=== PATIENT | male | born 1990 | race Hispanic/Latino ===

== ENCOUNTER 2018-09-09 17:58 | Emergency (ER) | payer SELFPAY ==
--- NOTE | 2018-09-09 19:53 | ER ---
Nurse's Notes [facility] Name: Vish Valdivia Jr Age: 28 yrs Sex: Male : 1990 Arrival Date: 09/09/2018 Time: 18:03 Bed 12 Private MD: None, None Diagnosis: Rash and other nonspecific skin eruption Presentation: 09/09 18:21 Presenting complaint: Abscess on abdomen x 2 days. Transition of care: patient was not hb received from another setting of care. Onset of symptoms was September 08, 2018. Risk Assessment: Do you want to hurt yourself or someone else? Patient reports no desire to harm self or others. Initial Sepsis Screen: Does the patient meet any 2 criteria? No. Patient's initial sepsis screen is negative. Does the patient have a suspected source of infection? No. Patient's initial sepsis screen is negative. Care prior to arrival: None. 18:21 Method Of Arrival: Ambulatory hb 18:21 Acuity: HIPOL[place] 4 hb Historical: - Allergies: 18:22 No Known Allergies; hb - Home Meds: 18:22 None [Active]; hb - PMHx: 18:22 None; hb - Immunization history:: Adult Immunizations up to date. - Social history:: Smoking status: Patient uses tobacco products, smokes one-half pack cigarettes per day. - Ebola Screening: : No symptoms or risks identified at this time. Screenin:25 Abuse screen: Denies threats or abuse. Denies injuries from another. Nutritional aj1 screening: No deficits noted. Tuberculosis screening: No symptoms or risk factors identified. Fall Risk None identified. Assessment: 20:25 General: Appears in no apparent distress. comfortable, Behavior is calm, cooperative, aj1 appropriate for age. Pain: Complains of pain in abdomen. Neuro: Level of Consciousness is awake, alert, obeys commands, Oriented to person, place, time, situation. Cardiovascular: Patient's skin is warm and dry. Respiratory: Airway is patent Respiratory effort is even, unlabored, Respiratory pattern is regular, symmetrical. GI: No signs and/or symptoms were reported involving the gastrointestinal system. : No signs and/or symptoms were reported regarding the genitourinary system. EENT: No signs and/or symptoms were reported regarding the EENT system. Derm: Rash noted that is on abdomen. Musculoskeletal: No signs and/or symptoms reported regarding the musculoskeletal system. Circulation, motion, and sensation intact. Vital Signs: 18:22 BP 150 / 98; Pulse 102; Resp 20; Temp 98.7; Pulse Ox 100% on R/A; Weight 99.79 kg; hb Height 5 ft. 8 in. (172.72 cm); Pain 9/10; 18:22 Body Mass Index 33.45 (99.79 kg, 172.72 cm) hb ED Course: 18:03 Patient arrived in ED. mr 18:03 None, None is Private Physician. mr 18:11 Patient's name was called from ER lobby. No response. hb 18:22 Triage completed. hb 18:22 Arm band placed on. hb 18:53 Amy Marin, RN is Primary Nurse. aj1 19:31 Zoltan Beach MD is Attending Physician. ps1 19:52 Dallas Savage MD is Referral Physician. ps1 20:25 Patient has correct armband on for positive identification. Bed in low position. Call aj1 light in reach. 20:25 No provider procedures requiring assistance completed. Patient did not have IV access aj1 during this emergency room visit. Administered Medications: No medications were administered Outcome: 19:53 Discharge ordered by . ps1 20:25 Discharged to home ambulatory. aj1 20:25 Condition: good 20:25 Discharge instructions given to patient, Instructed on discharge instructions, follow up and referral plans. medication usage, Demonstrated understanding of instructions, follow-up care, medications, Prescriptions given X 2. 20:27 Patient left the ED. aj1 Signatures: Amy Marin RN RN [facility] Lisbeth Whitt Karyna Escamilla RN RN Zoltan Beach MD MD ps1
--- NOTE | 2018-09-09 19:54 | EDPHYS ---
Physician Documentation [facility] Name: Vish Valdivia Jr Age: 28 yrs Sex: Male : 1990 Arrival Date: 09/09/2018 Time: 18:03 Bed 12 Private MD: None, None ED Physician Zoltan Beach HPI: 09/09 19:41 This 28 yrs old Male presents to ER via Ambulatory with complaints of skin ps1 rash. 19:41 Patient has had a rash for several months. 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 ps1 States that he has applied topical cream previously. Has not seen dermatology. Concerned today because over the last two days he had a small excoriation with possible abscess that formed on the abdominal wall. The appearance is consistent with the rest of the rash on his left arm and left leg. He additionally has fungal infection of nails bilaterally. No fever. No necrosis. . Historical: - Allergies: 18:22 No Known Allergies; hb - Home Meds: 18:22 None [Active]; hb - PMHx: 18:22 None; hb - Immunization history:: Adult Immunizations up to date. - Social history:: Smoking status: Patient uses tobacco products, smokes one-half pack cigarettes per day. - Ebola Screening: : No symptoms or risks identified at this time. ROS: 19:41 Constitutional: Negative for fever, chills, and weight loss, Eyes: Negative for injury, ps1 pain, redness, and discharge, Cardiovascular: Negative for chest pain, palpitations, and edema, Respiratory: Negative for shortness of breath, cough, wheezing, and pleuritic chest pain, Abdomen/GI: Negative for abdominal pain, nausea, vomiting, diarrhea, and constipation, Back: Negative for injury and pain, MS/Extremity: Negative for injury and deformity, Neuro: Negative for headache, weakness, numbness, tingling, and seizure. 19:41 Skin: Positive for rash. Exam: 19:41 Constitutional: This is a well developed, well nourished patient who is awake, alert, ps1 and in no acute distress. Head/Face: Normocephalic, atraumatic. Eyes: Pupils equal round and reactive to light, extra-ocular motions intact. Lids and lashes normal. Conjunctiva and sclera are non-icteric and not injected. Chest/axilla: Normal chest wall appearance and motion. Nontender with no deformity. No lesions are appreciated. Cardiovascular: Regular rate and rhythm. No gallops, murmurs, or rubs. Normal PMI, no JVD. No pulse deficits. Respiratory: Lungs have equal breath sounds bilaterally, clear to auscultation and percussion. No rales, rhonchi or wheezes noted. No increased work of breathing, no retractions or nasal flaring. Abdomen/GI: Soft, non-tender, with normal bowel sounds. No distension or tympany. No guarding or rebound. No evidence of tenderness throughout. 19:41 Skin: contact dermatitis, on the abdomen, left arm and left leg, has onchyomycosis on bilateral nails. . Vital Signs: 18:22 BP 150 / 98; Pulse 102; Resp 20; Temp 98.7; Pulse Ox 100% on R/A; Weight 99.79 kg; hb Height 5 ft. 8 in. (172.72 cm); Pain 9/10; 18:22 Body Mass Index 33.45 (99.79 kg, 172.72 cm) hb MDM: 19:41 Data reviewed: vital signs, nurses notes, and as a result, I will discharge patient. 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 Does not appear to have an abscess. Will discharge with medrol, clindamycin and refer to dermatology. Needs liver function panel prior to starting antifungals as they will need to be oral administration. . 19:53 Patient medically screened. ps1 Administered Medications: No medications were administered Disposition: 09/09/18 19:53 Discharged to Home. Impression: Rash and other nonspecific skin eruption. - Condition is Stable. - Discharge Instructions: Rash, [id number]. - Prescriptions for Clindamycin HCl 300 mg Oral Capsule - take 1 capsule by ORAL route every 6 hours for 10 days; 40 capsule. Medrol (Liborio) 4 mg Oral Tablets, Dose Pack - take 1 tablet by ORAL route as directed - follow package instructions; 1 packet. - Medication Reconciliation Form, Thank You Letter, Antibiotic Education, Prescription Opioid Use form. - Follow up: Dallas Savage MD; When: 1 week; Reason: Further diagnostic work-up, Recheck today's complaints, Continuance of care. - Problem is an ongoing problem. - Symptoms are unchanged. Signatures: Amy Marin RN RN aj1 Karyna Escamilla RN RN hb Zoltan Beach MD MD ps1 Corrections: (The following items were deleted from the chart) 20:27 19:53 09/09/2018 19:53 Discharged to Home. Impression: Rash and other nonspecific skin aj1 eruption. Condition is Stable. Forms are Medication Reconciliation Form, Thank You Letter, Antibiotic Education, Prescription Opioid Use. Follow up: Dallas Savage; When: 1 week; Reason: Further diagnostic work-up, Recheck today's complaints, Continuance of care. Problem is an ongoing problem. Symptoms are unchanged. ps1
== END 2018-09-09 20:27 | disposition home or self-care (01) ==
LOC: ER 17:58
DX: R21 Rash and other nonspecific skin eruption (principal); F17.210 Nicotine dependence, cigarettes, uncomplicated
CPT/HCPCS: 99282

== ENCOUNTER 2022-11-15 21:24 | Emergency (ER) | payer OTHER ==
--- OUTSIDE RECORDS SUMMARY | 2022-11-15 21:28 | XMS REPORT | Continuity of Care Document ---
:1990 Author Organization [facility] t Address [address] [place] [address] [place] [id number] Care Team Providers Name Role Phone PCP, PATIENT DOES NOT HAVE A Primary Care Physician UnavailMURRAY Gonzales Attending Clinician Unavailable Murray Hooper Attending Clinician Doctor Unassigned, [place] Attending Clinician Unavailable Shade Reed MD Attending Clinician SHADE REED Attending Clinician Unavailable SRIDHAR MARROQUIN Attending Clinician Unavailable MURRAY URIOSTEGUI Admitting Clinician Unavailable Payers Payer Name Policy Type Policy Number Effective Date Expiration Date [place] carrera [employer] [id number] 2022 OUT OF NETWORK 00:00:00 Problems Condition Condition Condition Status Onset Resolution Last Treating Co mments Source Name Details Category Date Date Treatment Clinician Date No known No known Disease Unive rs active active ity of problems problems [facility] Allergies, Adverse Reactions, Alerts Allergy Allergy Status Severity Reaction(s) Onset Inactive Treating Comm ents Source Name Type Date Date Clinician NO KNOWN Drug Active Univers ALLERGIE Class ity of [facility] Social History Social Habit Start Date Stop Date Quantity Comments Source Gender identity [facility]it y [facility] to 2022-04-29 2022-05-09 Not sure [facility] SARS-CoV-2 (event) 00:00:00 16:06:00 Medica l Branch Sex Assigned At [birth year] Uni versity [facility] 00:00:00 00:00:00 Medical Branch Smoking Status Start Date Stop Date Source Tobacco smoking consumption [facility] Medical unknown Branch Medications Ordered Filled Start Stop Current Ordering Indication Dosage Frequency Signature Comments Components Source Medication Medication Date Date Medication? Clinician (SIG) Name Name ondansetron No 4mg 4 mg, Univ ers (ZOFRAN-ODT 05-10 Oral, ity of ) 01:15: 00:44 ONCE, 1 [place] disintegrat 00 :00 dose, On Medi garrett ing tablet Sun05/09/22 Bra nch 4 mg at 2014, DAYLIN NaCl 0.9% 2022- No 1000mL at 999 Uni vers (NS) bolus 05-10 mL/hr, ity of infusion 00:45: 01:53 1,000 mL, [place] as 1,000 mL 00 :00 IV Medical Infusion, Branch ONCE, 1 dose, On Sun05/09/22 at 1945, DAY[place] dicyclomine No 20mg 20 mg, Uni vers (BENTYL) 05-10 Oral, ity of tablet 20 00:30: 00:44 [place]CE, [place] mg 00 :00 dose, On Medical Sun05/09/22 Branch at 1930, [place] iopamidol 2022- No [id number] 75mL 75 mL, Univers (ISOVUE 05-09 Intravenou ity o f 370-500 mL) 22:52: 22:52 s, ONCE, 1 [place] injection 00 :00 dose, On Medica l 75 mL e 05/09/22 Branch at 1815, Routine proMETHazin No 12.5mg 12.5 mg, Univers e 05-09 IV ity of (PHENERGAN) 22:30: 22:35 Piggyback, [place] 12.5 mg in 00 :00 ONCE, 1 Medica l NaCl 0.9% dose, On Branch (NS) 50 mL e 05/09/22 IV at 1730, piggyback DAYLIN NaCl 0.9% 2022- No 1000mL at 999 Uni vers (NS) bolus 05-09-05 mL/hr, ity of infusion 22:15: 00:03 1,000 mL, [place] as 1,000 mL 00 :00 IV Medical Infusion, Branch ONCE, 1 dose, On Sun05/09/22 at 1715, DAY[place] ketorolac 2022-2022- No 30mg 30 mg, Unive rs (TORADOL) 05-09 Slow IV ity of injection 21:30: 21:44 Push, [place] 30 mg 00 :00 ONCE, 1 Medical dose, On Branch Sun05/09/22 at 1630, Routine ondansetron 2022- No 4mg 4 mg, Slow Univers (ZOFRAN 05-09- IV Push, ity of (PF)) 21:30: 21:24 ONCE, 1 [place] injection 4 00 :00 dose, On Medi garrett mg Sun05/09/22 Branch at 1630, [place] dicyclomine 0 Yes [id number] 20mg Take 1 Univers 20 mg 4-04 tablet by ity of tablet 00:00: mouth 4 [place] 00 (four) Medical times Branch daily as needed for Abdominal pain. ondansetron 2022-0 Yes [id number] 4mg Take 1 Univers 4 mg 4-04 tablet by ity of disintegrat 00:00: mouth [place] ing tablet 00 every 8 Medica l (eight) Branch hours as needed for Nausea and Vomiting (N/V). dicyclomine 2022-0 Yes [id number] 20mg Take 1 Univers 20 mg 4-04 tablet by ity of tablet 00:00: mouth 4 [place] 00 (four) Medical times Branch daily as needed for Abdominal pain. ondansetron 2022-0 Yes [id number] 4mg Take 1 Univers 4 mg 4-04 tablet by ity of disintegrat 00:00: mouth [place] ing tablet 00 every 8 Medica l (eight) Branch hours as needed for Nausea and Vomiting (N/V). doxycycline 2020- No 100mg 100 mg, U nivers hyclate 10-30 09-25 Oral, ity of (Vibramycin 06:15: 05:14 [place] capsule 00 :00 dose, On Medica l 100 mg Sat Branch 10/30/20 at 0115, DAYLIN
Re ason for Anti-Infec tive: Documented Infection< br>Documen kevin Infection Site: Skin / Soft Tissue
Duration of Therapy: Other (see Comments) HYDROcodone 2020- No 1{tbl} 1 tablet, Univers -acetaminop 10-30 Oral, ity of hen (NORCO) 06:00: 05:14 [place]CE[place] 1 [place] 10-325 mg 00 :00 dose, On Medica l tablet 1 Sat Branch tablet 10/30/20 at 0100, Routine iohexol 2020- No [id number] 120mL 120 mL, Univers (OMNIPAQUE 10-30 [id number] Intravenou ity of 350 04:15: 04:06 s, ONCE, 1 [place] BULK-100 00 :00 dose, On Medical mL) Fri Branch injection 10/29/20 at 120 mL 2315, Routine ketorolac 2020- No 30mg 30 mg, Unive rs (TORADOL) 10-30 Slow IV ity of injection 03:30: 02:32 Push, [place] 30 mg 00 :00 ONCE, 1 Medical dose, On Branch 10/29/20 at 2230, Routine
membership correspondent approving Restricted medication : SHADE REED traMADoL Yes [id number] 50mg Take 1 Univers (ULTRAM) 50 9-24 tablet by ity of mg tablet 00:00: mouth [place] 00 every 6 Medical (six) Branch hours as needed for Pain (scale 7-10). Indication s: acute pain doxycycline Yes [id number] 100mg Take 1 Univers hyclate 100 9-24 capsule by it y of mg capsule 00:00: mouth [place] 00 (two) Medical times Branch daily. traMADoL Yes [id number] 50mg Take 1 Univers (ULTRAM) 50 9-24 tablet by ity of mg tablet 00:00: mouth [place] 00 every 6 Medical (six) Branch hours as needed for Pain (scale 7-10). Indication s: acute pain doxycycline Yes [id number] 100mg Take 1 Univers hyclate 100 9-24 capsule by it y of mg capsule 00:00: mouth [place] 00 (two) Medical times Branch daily. traMADoL Yes [id number] 50mg Take 1 Univers (ULTRAM) 50 9-24 tablet by ity of mg tablet 00:00: mouth [place] 00 every 6 Medical (six) Branch hours as needed for Pain (scale 7-10). Indication s: acute pain doxycycline Yes [id number] 100mg Take 1 Univers hyclate 100 9-24 capsule by it y of mg capsule 00:00: mouth [place] 00 (two) Medical times Branch daily. traMADoL Yes [id number] 50mg Take 1 Univers (ULTRAM) 50 9-24 tablet by ity of mg tablet 00:00: mouth [place] 00 every 6 Medical (six) Branch hours as needed for Pain (scale 7-10). Indication s: acute pain doxycycline Yes [id number] 100mg Take 1 Univers hyclate 100 9-24 capsule by it y of mg capsule 00:00: mouth [place] 00 (two) Medical times Branch daily. Vital Signs Vital Name Observation Time Observation Value Comments Source Oxygen saturation in 2022-05-10 01:50:00 100 /min [facility] Arterial blood by [facility] Pulse oximetry Branch Heart rate 2022-05-10 01:50:00 78 /min [facility] Respiratory rate 2022-05-10 01:50:00 15 /min [facility] Systolic blood 2022-05-10 01:00:00 132 mm[facility]Hg[facility] Diastolic blood 2022-05-10 01:00:00 64 mm[Hg] [facility] Body temperature 2022-05-09 21:26:00 35.94 Marichuy [facility] Body height 2022-05-09 21:05:00 172.7 cm [facility] Body weight 2022-05-09 21:05:00 106.595 kg [facility] BMI 2022-05-09 21:05:00 35.73 kg/m2 [facility] Oxygen saturation in 2020-10-30 05:24:00 100 /min University of Arterial blood by [facility] Pulse oximetry Branch Systolic blood 2020-10-30 05:24:00 130 mm[Hg] Univer sity of pressure [facility] Diastolic blood 2020-10-30 05:24:00 81 mm[Hg] Tracee rsity of pressure [facility] Heart rate 2020-10-30 05:24:00 67 /min [facility] Respiratory rate 2020-10-30 05:24:00 16 /min [facility] Body temperature 2020-10-30 01:57:26 36.28 Marichuy [facility] Body height 2020-10-30 01:55:00 170.2 cm [facility] Body weight 2020-10-30 01:55:00 108.863 kg [facility] BMI 2020-10-30 01:55:00 37.59 kg/m2 [facility] Procedures Procedure Date / Time Performing Clinician Source Performed CONSENT/REFUSAL FOR 2022-10-17 01:16:23 Doctor [facility]igned, [facility] CT ABDOMEN PELVIS W 2022-05-09 23:02:00 Murray Uriostegui [facility] CONTRAST [facility] URINALYSIS 2022-05-09 22:42:00 Murray Uriostegui [facility] URINE DRUG (IMMUNOASSAY) 2022-05-09 22:42:00 [facility] Medical Bra nch SCREEN W/O REFLEX LIPASE 2022-05-09 21:21:00 Murray Uriostegui [facility] TROPONIN I 2022-05-09 21:21:00 Murray Uriostegui [facility] COMP. METABOLIC PANEL 2022-05-09 21:21:00 [facility] ([id number]) [facility] CBC WITH DIFF 2022-05-09 21:21:00 Murray Uriostegui [facility] NOTICE OF PRIVACY 2022-05-09 21:02:32 Doctor Unassigned, No [facility] Name Medical Branch CONSENT/REFUSAL FOR 2022-05-09 20:59:14 Doctor Unassigned, [facility] Name [facility] CT ABDOMEN PELVIS W 2020-10-30 04:09:51 Shade Reed [facility] CONTRAST [facility] US SCROTUM AND CONTENTS 2020-10-30 03:24:00 Shade [facility]. METABOLIC PANEL 2020-10-30 02:31:00 Shade Reed [facility] ([id number]) [facility] CBC WITH DIFF 2020-10-30 02:31:00 Shade Reed [facility] URINALYSIS 2020-10-30 02:31:00 Shade Reed [facility] CONSENT/REFUSAL FOR 2020-10-30 01:46:01 Doctor Unassigned, No [facility] Name [facility] Encounters Start End Encounter Admission Attending Care Care Encounter Source Date/Time Date/Time Type Type Clinicians Facility Department ID 2022-10-16 2022-10-16 Emergency X [facility] ERT [id number] Univers 20:34[facility] 2022-10-16 2022-10-16 Emergency [facility] [id number] Univers 20:34:00 20:35:00 [place] 350.1.13.10 i ty of [place] 4.2.7.[address] [place] [id number] 2022-05-09 2022-05-09 Emergency X URIOSTEGUI, [facility] ERT [id number] Univers 16:12:00 20:56:00 [facility] 2022-05-09 2022-05-09 Emergency [facility], [facility] [id number] Univers 16:12:00 20:56:00 Murray WALTON 350.1.13.10 i ty of [place] 4.2.7.2.6 [facility] [id number] [address] 2022-05-09 2022-05-09 Orders Doctor GUTIERREZ [id number] Univers 00:00:00 00:00:00 Only Unassigned, DEUCE 350.1.13.10 ity of [place] [facility] 4.2.7.2.686 [place] [id number] [facility] 009 Branch 2020-10-29 2020-10-30 Emergency [facility] [id number] Univers 20:48:00 00:26:00 Shade Bernstein 350.1.13.10 ity of [place] 4.2.7.2.686 [facility] [id number] [facility] 084 Branch 2020-10-29 2020-10-29 Emergency [facility] ERT [id number] Univers 20:48:00 20:48:00 [facility] 2019-05-22 2019-05-22 Emergency E AZNAUROVA-A BL [facility]BL [id number] BL 18:33:00 20:18:00 SRIDHAR TRAN Results Test Description Test Time Test Comments Results Result Comments Source TROPONIN I 2022-05-09 22:15:45 Test Item Value Reference Range Interpretation Comme nts TROPONIN I (test code = 1064595883) 0.001 ng/mL <=0.034 RASHAUN (test code = RASHAUN) Reference (Normal) Range (defined by the 99th percentile reference limit): <= 0.034 ng/mL Note: Cardiac troponin begins to rise 3-4 hours after the onset of ischemia. Repeat in 4-6 hours if the sample was drawn within 3-4 hours of the onset of the symptom and found normal. Diagnosis of myocardial injury is made with acute changes in cTn concentrations with at least one serial sample above the 99th percentile upper reference limit (URL), taken together with the patient's clinical presentation. Biotin has been reported to cause a negative bias, interpret results relative to patient's use of biotin. Lab Interpretation (test code = Normal 52200-9) [facility]OLIC [facility] ([id number])2022-05-09 21:58:56 Test Item Value Reference Range Interpretation Comments NA (test code = 138 mmol/L 135-145 7605187754) K (test code = 4.3 mmol/L 3.5-5.0 6618825523) CL (test code = 103 mmol/L 98-108 9596614499) CO2 TOTAL (test code = 18 mmol/L 23-31 L 1641556555) AGAP (test code = 17 2-16 H 5733722585) BUN (test code = 15 mg/dL 7-23 5308494434) GLUCOSE (test code = 136 mg/dL 70-110 H 6115447981) CREATININE (test code = 0.83 mg/dL 0.60-1.25 0993450348) TOTAL BILI (test code = 0.8 mg/dL 0.1-1.4 6387894558) CALCIUM (test code = 10.7 mg/dL 8.6-10.6 H 4063589312) T PROTEIN (test code = 9.2 g/dL 6.3-8.2 H 9721150183) ALBUMIN (test code = 5.5 g/dL 3.5-5.0 H 2500829494) ALK PHOS (test code = 83 U/L 34-122 1231055027) ALTv (test code = 27 U/L 5-50 2-6) AST(SGOT) (test code = 28 U/L 13-40 0764891675) eGFR (test code = 107.4 mL/min/1.73m2 6548339113) RASHAUN (test code = RASHAUN) Association of Glomerular Filtration Rate (GFR) and Staging of Kidney Disease* + --+ --+ ------+| GFR (mL/min/1.73 m2) ?| With Kidney Damage ?| ?Without Kidney Damage+ --------+ --------+ +| ?>90 ?| ?Stage one ?| ? Normal ?+ ---+ ---+ -------+| ?60-89 ?| ?Stage two ?| ? Decreased GFR ? + --+ --+ ------+| ?30-59 ?| ?Stage three ?| ? Stage three ? + --+ --+ ------+| ?15-29 ?| ?Stage four ? | ? Stage four ?+ ---+ ---+ -------+| ?<15 (or dialysis) ? ?| ?Stage five ? | ? Stage five ?+ ---+ ---+ -------+ *Each stage assumes the associated GFR level has been in effect for at least three months. ?Stages 1 to 5, with or without kidney disease, indicate chronic kidney disease. Notes: Determination of stages one and two (with eGFR >59mL/min/1.73 m2) requires estimation of kidney damage for at least three months as defined by structural or functional abnormalities of the kidney, manifested by either:Pathological abnormalities or Markers of kidney damage (including abnormalities in the composition of the blood or urine or abnormalities in imaging tests). Lab Interpretation Abnormal (test code = 54742-5) [facility] 21[facility]58:41 Test Item Value Reference Range Interpretation Comments LIPASE (test code = 1533831858) 123 U/L 0-220 Lab Interpretation (test code = Normal 05217-0) [facility] WITH [id number] 21:46:56 Test Item Value Reference Range Interpretation Comments WBC (test code = 16.34 See_Comment H [Automated 0790-2) message] The system which generated this result transmit kevin reference range : 4.20 - 10.70 10*3/?L. The reference range was not used to interpret this result as normal/abnormal . RBC (test code = 5.74 See_Comment H [Automated 369-8) message] The system which generated this result transmit kevin reference range : 4.26 - 5.52 10*6/?L. The reference range was not used to interpret this result as normal/abnormal . HGB (test code = 16.8 g/dL 12.2-16.4 H 718-7) HCT (test code = 47.8 % 38.4-49.3 4544-3) MCV (test code = 83.3 fL 81.7-95.6 787-2) MCH (test code = 29.3 pg 26.1-32.7 785-6) MCHC (test code = 35.1 g/dL 31.2-35.0 H 786-4) RDW-SD (test code = 40.4 fL 38.5-51.6 02727-6) RDW-CV (test code = 13.4 % 12.1-15.4 788-0) PLT (test code = 333 See_Comment H [Automated 777-3) message] The system which generated this result transmit kevin reference range : 150 - 328 10*3/ ?L. The reference range was not u sed to interpret th is result as normal/abnormal . MPV (test code = 11.6 fL 9.8-13.0 26811-7) NRBC/100 WBC (test 0.0 See_Comment [Automat ed code = 9382569329) message] The system which generated this result transmit kevin reference range : 0.0 - 10.0 /100 WBCs. The reference range was not used to interpret this result as normal/abnormal . NRBC x10^3 (test code See_Comment [Auto mated = 2352856095) message] The system which generated this result transmit kevin reference range : 10*3/?L. The reference range was not used to interpret this result as normal/abnormal . GRAN MAT (NEUT) % 79.8 % (test code = 770-8) IMM GRAN % (test code 0.50 % = 4828446746) LYMPH % (test code = 15.2 % 736-9) MONO % (test code = 3.4 % 5905-5) EOS % (test code = 0.4 % 713-8) BASO % (test code = 0.7 % 706-2) GRAN MAT x10^3(ANC) 13.04 10*3/uL 1.99-6.95 H (test code = 7974774486) IMM GRAN x10^3 (test 0.08 10*3/uL 0.00-0.06 H code = 3535372332) LYMPH x10^3 (test code 2.48 10*3/uL 1.09-3.23 = 731-0) MONO x10^3 (test code 0.56 10*3/uL 0.36-1.02 = 742-7) EOS x10^3 (test code = 0.07 10*3/uL 0.06-0.53 711-2) BASO x10^3 (test code 0.11 10*3/uL 0.01-0.09 H = 704-7) Lab Interpretation Abnormal (test code = 53070-0) [facility]. METABOLIC PANEL ([id number])2020-10-30 02:58:42 Test Item Value Reference Range Interpretation Comments NA (test code = 137 mmol/L 135-145 0871627914) K (test code = 4.0 mmol/L 3.5-5.0 0998847946) CL (test code = 102 mmol/L 98-108 8308251917) CO2 TOTAL (test code = 21 mmol/L 23-31 L 8030150934) AGAP (test code = 2-16 9507211161) BUN (test code = 12 mg/dL 7-23 0815007014) GLUCOSE (test code = 113 mg/dL 70-110 H 6464126764) CREATININE (test code = 0.92 mg/dL 0.60-1.25 6628680718) TOTAL BILI (test code = 1.0 mg/dL 0.1-1.7 6883379613) CALCIUM (test code = 10.4 mg/dL 8.6-10.6 2917656120) T PROTEIN (test code = 8.6 g/dL 6.3-8.2 H 1999015246) ALBUMIN (test code = 5.3 g/dL 3.5-5.0 H 9819550442) ALK PHOS (test code = 86 U/L 34-122 1690852292) ALTv (test code = 23 U/L 5-50 1742-6) AST(SGOT) (test code = 29 U/L 13-40 7531022569) eGFR (test code = mL/min/1.73m2 1514398184) RASHAUN (test code = RASHAUN) Association of Glomerular Filtration Rate (GFR) and Staging of Kidney Disease* + --+ --+ ------+| GFR (mL/min/1.73 m2) ?| With Kidney Damage ?| ?Without Kidney Damage+ --------+ --------+ +| ?>90 ?| ?Stage one ?| ? Normal ?+ ---+ ---+ -------+| ?60-89 ?| ?Stage two ?| ? Decreased GFR ? + --+ --+ ------+| ?30-59 ?| ?Stage three ?| ? Stage three ? + --+ --+ ------+| ?15-29 ?| ?Stage four ? | ? Stage four ?+ ---+ ---+ -------+| ?<15 (or dialysis) ? ?| ?Stage five ? | ? Stage five ?+ ---+ ---+ -------+ *Each stage assumes the associated GFR level has been in effect for at least three months. ?Stages 1 to 5, with or without kidney disease, indicate chronic kidney disease. Notes: Determination of stages one and two (with eGFR >59mL/min/1.73 m2) requires estimation of kidney damage for at least three months as defined by structural or functional abnormalities of the kidney, manifested by either:Pathological abnormalities or Markers of kidney damage (including abnormalities in the composition of the blood or urine or abnormalities in imaging tests). Lab Interpretation Abnormal (test code = 86803-1) [facility] WITH [id number] 02:44:58 Test Item Value Reference Range Interpretation Comments WBC (test code = See_Comment H [Automated 8889-2) message] The sy stem which generated this result transmitted reference range : 4.20 - 10.70 10*3/?L. The reference range was not used to interpret this result as normal/abnormal . RBC (test code = See_Comment [Automated 269-8) message] The sy stem which generated this result transmitted reference range : 4.26 - 5.52 10*6/?L. The reference range was not used to interpret this result as normal/abnormal . HGB (test code = 15.5 g/dL 12.2-16.4 718-7) HCT (test code = 45.3 % 38.4-49.3 4544-3) MCV (test code = 86.0 fL 81.7-95.6 787-2) MCH (test code = 29.4 pg 26.1-32.7 785-6) MCHC (test code = 34.2 g/dL 31.2-35.0 786-4) RDW-SD (test code = 41.8 fL 38.5-51.6 60111-8) RDW-CV (test code = 13.3 % 12.1-15.4 788-0) PLT (test code = See_Comment [Automated 777-3) message] The sy stem which generated this result transmitted reference range : 150 - 328 10*3/ ?L. The reference r jammie was not used to interpret this result as normal/abnormal . MPV (test code = 11.3 fL 9.8-13.0 87320-5) NRBC/100 WBC (test See_Comment [Automat ed code = 2870875499) message] The system which generated this result transmitted reference range : 0.0 - 10.0 /100 WBCs. The refer ence range was not u sed to interpret th is result as normal/abnormal . NRBC x10^3 (test code <0.01 See_Comment [Auto mated = 6511049507) message] The s ystem which generated this result transmitted reference range : 10*3/?L. The reference range was not used to interpret this result as normal/abnormal . GRAN MAT (NEUT) % 65.2 % (test code = 770-8) IMM GRAN % (test code 0.30 % = 3596817915) LYMPH % (test code = 25.4 % 736-9) MONO % (test code = 6.5 % 5905-5) EOS % (test code = 1.9 % 713-8) BASO % (test code = 0.7 % 706-2) GRAN MAT x10^3(ANC) 7.12 10*3/uL 1.99-6.95 H (test code = 6626242244) IMM GRAN x10^3 (test 0.03 10*3/uL 0.00-0.06 code = 2809813223) LYMPH x10^3 (test code 2.78 10*3/uL 1.09-3.23 = 731-0) MONO x10^3 (test code 0.71 10*3/uL 0.36-1.02 = 742-7) EOS x10^3 (test code = 0.21 10*3/uL 0.06-0.53 711-2) BASO x10^3 (test code 0.08 10*3/uL 0.01-0.09 = 704-7) Lab Interpretation Abnormal (test code = 39276-2) [facility]"
--- NOTE | 2022-11-15 21:52 | EDPHYS ---
Physician Documentation [facility] Name: Vish Valdivia Jr Age: 32 yrs Sex: Male : 1990 Arrival Date: 11/15/2022 Time: 21:24 Bed 10 Private MD: ED Physician Frandy Canela HPI: 11/15 21:56 This 32 yrs old Male presents to ER via Ambulatory with complaints of Insect rt Bite, Abdominal Cramping. 21:56 Patient presents to the ED with insect bites on his left lower extremity that occurred rt about 3 to 4 days ago. Patient states that the irritation to the skin has been somewhat worsening, reports some mild redness surrounding the bites. He reports having some mild abdominal cramping starting today, none previously. Denies other acute complaints at this time, symptoms are mild in severity, no other aggravating or elevating factors.. Historical: - Allergies: 21:37 No Known Allergies; ap3 - Home Meds: 21:37 None [Active]; ap3 - PMHx: 21:37 Back pain; ap3 - Immunization history:: Client reports having NOT received the Covid vaccine. - Social history:: Smoking status: Patient denies any tobacco usage or history of. - Family history:: not pertinent. ROS: 21:56 Constitutional: Negative for fever, chills, and weight loss, Cardiovascular: Negative rt for chest pain, palpitations, and edema, Respiratory: Negative for shortness of breath, cough, wheezing, and pleuritic chest pain, MS/Extremity: Negative for injury and deformity, Neuro: Negative for headache, weakness, numbness, tingling, and seizure, Psych: Negative for depression, anxiety, suicide ideation, homicidal ideation, and hallucinations, 21:56 Abdomen/GI: Negative for nausea, vomiting, 21:56 Skin: Positive for Redness, itching, insect bite, Exam: 21:56 Constitutional: This is a well developed, well nourished patient who is awake, alert, rt and in no acute distress. Head/Face: Normocephalic, atraumatic. Chest/axilla: Normal chest wall appearance and motion. Nontender with no deformity. No lesions are appreciated. Cardiovascular: Regular rate and rhythm with a normal S1 and S2. No gallops, murmurs, or rubs. Normal PMI, no JVD. No pulse deficits. Respiratory: Lungs have equal breath sounds bilaterally, clear to auscultation and percussion. No rales, rhonchi or wheezes noted. No increased work of breathing, no retractions or nasal flaring. Abdomen/GI: Soft, non-tender, with normal bowel sounds. No distension or tympany. No guarding or rebound. No evidence of tenderness throughout. Neuro: Awake and alert, GCS 15, oriented to person, place, time, and situation. Cranial nerves II-XII grossly intact. Motor strength 5/5 in all extremities. Sensory grossly intact. Cerebellar exam normal. Normal gait. Psych: Awake, alert, with orientation to person, place and time. Behavior, mood, and affect are within normal limits. 21:56 Skin: Insect bites noted to the distal left lower extremity, mild surrounding erythema, no appreciable warmth, no abscess. Vital Signs: 21:35 BP 147 / 74; Pulse 88; Resp 17; Temp 98.7; Pulse Ox 100% ; Weight 113.4 kg; Pain 6/10; ap3 21:58 BP 118 / 54; Pulse 83; Resp 16; Pulse Ox 100% on R/A; iw 21:35 Pain Scale: Adult ap3 MDM: 21:43 Patient medically screened. rt 21:56 Differential diagnosis: Insect bite, dermatitis, cellulitis. Data reviewed: vital rt signs, nurses notes. Test considered but Not performed: Labs: Consideration was given to either a brown recluse or black spider bite. Patient has a benign abdominal examination, timing is not consistent with a black bite, stable vital signs. The bite has no areas of necrosis, only mild surrounding erythema, very low suspicion for recluse bite, labs not indicated. Counseling: I had a detailed discussion with the patient and/or guardian regarding the historical points, exam findings, and any diagnostic results supporting the discharge/admit diagnosis, the need for outpatient follow up. Administered Medications: No medications were administered Disposition Summary: 11/15/22 21:52 Discharge Ordered Notes: Location: Home rt Problem: new rt Symptoms: are unchanged rt Condition: Stable rt Diagnosis - Insect bite to left lower extremity rt Followup: rt - With: Private Physician - When: 2 - 3 days - Reason: Discharge Instructions: - Discharge Summary Sheet rt - Insect Bite, Adult rt Forms: - Medication Reconciliation Form rt - Thank You Letter rt - Antibiotic Education rt - Prescription Opioid Use rt - Patient Portal Instructions rt - Leadership Thank You Letter rt Prescriptions: - Doxycycline Monohydrate 100 mg Oral Tablet - take 1 tablet ORAL route every 12 hours for 10 days; 20 tablet; Refills: 0, rt Product Selection Permitted Signatures: Ebony Waldron RN RN ap3 Frandy Canela MD MD rt
--- NOTE | 2022-11-15 21:52 | ER ---
Nurse's Notes [facility] Name: Vish Valdivia Jr Age: 32 yrs Sex: Male : 1990 Arrival Date: 11/15/2022 Time: 21:24 Bed 10 Private MD: Diagnosis: Insect bite to left lower extremity Presentation: 11/15 21:35 Chief complaint: Patient states: he got an insect bite on the outside of his left lower ap3 leg approx 3-4 days ago, and it has been bothering him since. patient also reports, " since the bite has started to spread, I started having low abdominal cramping". Coronavirus screen: At this time, the client does not indicate any symptoms associated with coronavirus-19. Ebola Screen: No symptoms or risks identified at this time. Initial Sepsis Screen: Does the patient meet any 2 criteria? No. Patient's initial sepsis screen is negative. Does the patient have a suspected source of infection? No. Patient's initial sepsis screen is negative. Risk Assessment: Do you want to hurt yourself or someone else? Patient reports no desire to harm self or others. Onset of symptoms was November 11, 2022. 21:35 Method Of Arrival: Ambulatory ap3 21:35 Acuity: [place] 4 ap3 Triage Assessment: 21:37 Bite description: bite sustained to lateral aspect of left calf by an unknown animal, ap3 animal information: vaccination(s) is not applicable. General: Appears in no apparent distress. Behavior is calm, cooperative, appropriate for age. Pain: Complains of pain in lateral aspect of left calf Pain currently is 6 out of 10 on a pain scale. Neuro: Level of Consciousness is awake, alert, obeys commands, Oriented to person, place, time, situation. Cardiovascular: Patient's skin is warm and dry. Respiratory: Airway is patent Respiratory effort is even, unlabored, Respiratory pattern is regular, symmetrical. Historical: - Allergies: 21:37 No Known Allergies; ap3 - Home Meds: 21:37 None [Active]; ap3 - PMHx: 21:37 Back pain; ap3 - Immunization history:: Client reports having NOT received the Covid vaccine. - Social history:: Smoking status: Patient denies any tobacco usage or history of. - Family history:: not pertinent. Screenin:38 [facility] ED Fall Risk Assessment (Adult) History of falling in the last 3 months, ap3 including since admission No falls in past 3 months (0 pts). Abuse screen: Denies threats or abuse. Nutritional screening: No deficits noted. Tuberculosis screening: No symptoms or risk factors identified. Assessment: 21:51 General: Appears comfortable, well groomed, well developed, well nourished, Behavior is iw calm, cooperative, appropriate for age, Reports getting an insect bite on left lateral lower leg 3-4 days ago that "seems to be irritated and spreading" and patient feels like he has some associated abdominal cramping since the bites have started spreading. Denies n/v/d. Pain: Denies pain. Neuro: Level of Consciousness is awake, alert, obeys commands, Oriented to person, place, time, situation, Appropriate for age. Cardiovascular: Capillary refill < 3 seconds Patient's skin is warm and dry. Respiratory: Airway is patent Respiratory effort is even, unlabored, Respiratory pattern is regular, symmetrical. GI: Reports cramping. Derm: insect bites to left lateral lower leg. 21:59 Derm: Skin Skin is pink. iw Vital Signs: 21:35 BP 147 / 74; Pulse 88; Resp 17; Temp 98.7; Pulse Ox 100% ; Weight 113.4 kg; Pain 6/10; ap3 21:58 BP 118 / 54; Pulse 83; Resp 16; Pulse Ox 100% on R/A; iw 21:35 Pain Scale: Adult ap3 ED Course: 21:31 Patient arrived in ED. mr 21:35 Frandy Canela MD is Attending Physician. rt 21:37 Triage completed. ap3 21:38 Arm band placed on right wrist. ap3 21:41 Esme Simon, RN is Primary Nurse. iw 21:51 Patient has correct armband on for positive identification. Bed in low position. Call iw light in reach. Side rails up X 1. Provided Education on: POC. Verbalized understanding. . 21:51 No provider procedures requiring assistance completed. Patient did not have IV access iw during this emergency room visit. Administered Medications: No medications were administered Medication: 21:38 VIS not applicable for this client. ap3 Outcome: 21:52 Discharge ordered by MD. rt 21:59 Discharged to home ambulatory, iw 21:59 Condition: stable 21:59 Discharge instructions given to patient, Instructed on discharge instructions, follow up and referral plans. medication usage, Demonstrated understanding of instructions, follow-up care, medications, Prescriptions given X 1, 21:59 Patient left the ED. iw Signatures: Lisbeth Whitt Reg Reg mr Williams, Irene, RN Ebony Hamm RN RN ap3 Frandy Canela MD MD rt
[2022-11-15 22:07] VITALS: BP 118/54; TEMP 98.7; O2SAT 100
== END 2022-11-15 21:59 | disposition home or self-care (01) ==
LOC: ER 21:24
DX: S80.862A Insect bite (nonvenomous), left lower leg, initial encounter (principal)

== ENCOUNTER 2022-12-05 16:45 | Emergency (ER) | payer OTHER ==
--- OUTSIDE RECORDS SUMMARY | 2022-12-05 16:48 | XMS REPORT | Continuity of Care Document ---
:1990 Author Organization [facility] t Address [address] [place] [address] [place] [id number] Care Team Providers Name Role Phone PCP, PATIENT DOES NOT HAVE A Primary Care Physician UnavailMURRAY Gonzales Attending Clinician Unavailable Murray Hooper Attending Clinician Doctor Unassigned, [place] Attending Clinician Unavailable Shade Reed MD Attending Clinician SHADE REED Attending Clinician Unavailable SRIDHAR MARROQUIN Attending Clinician Unavailable MURRAY URIOSTEGUI Admitting Clinician Unavailable Payers Payer Name Policy Type Policy Number Effective Date Expiration Date [place] carrera [employer] [id number] 2022 OUT OF NETWORK 00:00:00 Problems Condition Condition Condition Status Onset Resolution Last Treating Co mments Source Name Details Category Date Date Treatment Clinician Date No known No known Disease Unive rs active active ity of problems problems [facility] Allergies, Adverse Reactions, Alerts Allergy Allergy Status Severity Reaction(s) Onset Inactive Treating Comm ents Source Name Type Date Date Clinician NO KNOWN Drug Active Univers ALLERGIE Class ity of [facility] [place] [facility] Social History Social Habit Start Date Stop Date Quantity Comments Source Gender identity Universit y [facility] Sexual orientation [facility] [place] [place] Exposure to 2022-04-29 2022-05-09 Not sure [facility] SARS-CoV-2 (event) 00:00:00 16:06:00 Medica l Branch Sex Assigned At [birth year] Uni versity [facility] 00:00:00 00:00:00 Medical Branch Smoking Status Start Date Stop Date Source Tobacco smoking consumption [facility] Medical unknown Branch Medications Ordered Filled Start [...] Branch at 1930, DAYLIN iopamidol 2022- No [id number] 75mL 75 mL, Univers (ISOVUE 05-09 Intravenou [...] Branch at 1630, DAYLIN dicyclomine 0 Yes [id number] 20mg Take 1 Univers 20 mg 4-04 tablet by ity of tablet 00:00: mouth 4 [place] 00 (four) Medical times Branch daily as needed for Abdominal pain. ondansetron 2022-0 Yes [id number] 4mg Take 1 Univers 4 mg 4-04 tablet by ity of disintegrat 00:00: mouth [place] ing tablet 00 every 8 Medica l (eight) Branch hours as needed for Nausea and Vomiting (N/V). dicyclomine 2022-0 Yes [id number] 20mg Take 1 Univers 20 mg 4-04 tablet by ity of tablet 00:00: mouth 4 [place] 00 (four) Medical times Branch daily as needed for Abdominal pain. ondansetron 2022-0 Yes [id number] 4mg Take 1 Univers 4 mg 4-04 [...] 10/30/20 at 0100, Routine iohexol 2020- No [id number] 120mL 120 mL, Univers (OMNIPAQUE 10-30 537600 Intravenou ity of 350 04:15: 04:06 s, ONCE, 1 [place] BULK-100 00 :00 dose, On Medical mL) Fri Branch injection 10/29/20 at 120 mL 2315, Routine ketorolac 2020- No 30mg 30 mg, Unive rs (TORADOL) 10-30 Slow IV ity of injection 03:30: 02:32 Push, [place] 30 mg 00 :00 ONCE, 1 Medical dose, On Branch 10/29/20 at 2230, Routine
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 Indication s: acute pain doxycycline Yes [id number] 100mg Take 1 Univers hyclate 100 9-24 capsule by it y of mg capsule 00:00: [place] (two) Medical times Branch daily. traMADoL Yes [id number] 50mg Take 1 Univers (ULTRAM) 50 9-24 tablet by ity of mg tablet 00:00: mouth [place] 00 every 6 Medical (six) Branch hours as needed for Pain (scale 7-10). Indication s: acute pain doxycycline Yes [id number] 100mg Take 1 Univers hyclate 100 9-24 capsule by it y of mg capsule 00:00: [place] (two) Medical times Branch daily. traMADoL Yes [id number] 50mg Take 1 Univers (ULTRAM) 50 9-24 tablet by ity of mg tablet 00:00: mouth [place] 00 every 6 Medical (six) Branch hours as needed for Pain (scale 7-10). Indication s: acute pain doxycycline Yes [id number] 100mg Take 1 Univers hyclate 100 9-24 capsule by it y of mg capsule 00:00: [place] (two) Medical times Branch daily. traMADoL Yes [id number] 50mg Take 1 Univers (ULTRAM) 50 9-24 tablet by ity of mg tablet 00:00: mouth [place] 00 every 6 Medical (six) Branch hours as needed for Pain (scale 7-10). Indication s: acute pain doxycycline Yes [id number] 100mg Take 1 Univers hyclate 100 9-24 capsule by it y of mg capsule 00:00: [place] (two) Medical times Branch daily. Vital Signs Vital Name Observation Time Observation Value Comments Source Oxygen saturation in 2022-05-10 01:50:00 100 /min [facility] Arterial blood by [facility] Pulse oximetry Branch Heart rate 2022-05-10 01:50:00 78 /min [facility] Respiratory rate 2022-05-10 01:50:00 15 /min [facility] Systolic blood 2022-05-10 01:00:00 132 mm[Hg] [facility] Diastolic blood 2022-05-10 01:00:00 64 mm[Hg] [facility] Body temperature 2022-05-09 21:26:00 35.94 Marichuy [facility] Body height 2022-05-09 21:05:00 172.7 cm [facility] Body weight 2022-05-09 21:05:00 106.595 kg [facility] BMI 2022-05-09 21:05:00 35.73 kg/m2 [facility] Oxygen saturation in 2020-10-30 05:24:00 100 /min University of Arterial blood by [facility] Pulse oximetry Branch Systolic blood 2020-10-30 05:24:00 130 mm[Hg] Univer sity of pressure [facility] Diastolic blood 2020-10-30 05:24:00 81 mm[Hg] Tracee rsity of pressure [facility] Heart rate 2020-10-30 05:24:00 67 /min [facility] Respiratory rate 2020-10-30 05:24:00 16 /min [facility] Body temperature 2020-10-30 01:57:26 36.28 Marichuy [facility] Body height 2020-10-30 01:55:00 170.2 cm [facility] Body weight 2020-10-30 01:55:00 108.863 kg [facility] BMI 2020-10-30 01:55:00 37.59 kg/m2 [facility] Procedures Procedure Date / Time Performing Clinician Source Performed CONSENT/REFUSAL FOR 2022-10-17 01:16:23 [facility], [facility] CT ABDOMEN PELVIS W 2022-05-09 23:02:00 Murray Uriostegui [facility] CONTRAST [facility] URINALYSIS 2022-05-09 22:42:00 Murray Uriostegui [facility] [place] URINE DRUG (IMMUNOASSAY) 2022-05-09 22:42:00 [facility] Medical Bra nch SCREEN W/O REFLEX LIPASE 2022-05-09 21:21:00 Murray Uriostegui [facility] [place] TROPONIN I 2022-05-09 21:21:00 Murray Uriostegui [facility] [place] COMP. METABOLIC PANEL 2022-05-09 21:21:00 Murray [facility]egui [facility] ([id number]) [facility] CBC WITH DIFF 2022-05-09 21:21:00 Murray Uriostegui [facility] [place] NOTICE OF PRIVACY 2022-05-09 21:02:32 Doctor Unassigned, No [facility] Name Medical Branch CONSENT/REFUSAL FOR 2022-05-09 20:59:14 Doctor Unassigned, [facility] Name [facility] CT ABDOMEN PELVIS W 2020-10-30 04:09:51 Shade Reed [facility] CONTRAST [facility] US SCROTUM AND CONTENTS 2020-10-30 03:24:00 [facility]OLIC PANEL 2020-10-30 02:31:00 Shade Reed [facility] ([id number]) [facility] CBC WITH DIFF 2020-10-30 02:31:00 Shade Reed [facility] [place] URINALYSIS 2020-10-30 02:31:00 Shade Reed [facility] [place] CONSENT/REFUSAL FOR 2020-10-30 01:46:01 Doctor Unassigned, No [facility] Name [facility] Encounters Start End Encounter Admission Attending Care Care Encounter Source Date/Time Date/Time Type Type Clinicians Facility Department ID 2022-10-16 2022-10-16 Emergency X [facility] ERT [id number] Univers 20:34:00 20:35:[address] [facility] [place] [place] 2022-10-16 2022-10-16 Emergency [facility] [id number] Univers 20:34:00 20:35:00 [place] 350.1.13.10 i ty of [place] 4.2.7[address] [place] [id number] 2022-05-09 2022-05-09 Emergency X URIOSTEGUI, [facility] ERT [id number] Univers 16:12:00 20:56:[address] [facility] [place] [place] 2022-05-09 2022-05-09 Emergency [facility], [facility] [id number] Univers 16:12:00 20:56:00 Murray ASHLAND 350.1.13.10 i ty of [place] 4.2.7.2.6 [facility] [id number] [address] 2022-05-09 2022-05-09 Orders Doctor GUTIERREZ [id number] Univers 00:00:00 00:00:00 Only Unassigned, DEUCE 350.1.13.10 ity of [place] [facility] 4.2.7.2.686 Abraham [id number] [facility] 009 Branch 2020-10-29 2020-10-30 Emergency [facility] [id number] Univers 20:48:00 00:26:00 Shade Bernstein 350.1.13.10 ity of [place] 4.2.7.2.686 [facility] [id number] [facility] 084 Branch 2020-10-29 2020-10-29 Emergency [facility] ERT [id number] Univers 20:48:00 20:48:00 [facility] 2019-05-22 2019-05-22 Emergency E AZNAUROVA-A BL MHBL [id number] BL 18:33:00 20:18:00 SRIDHAR TRAN Results Test Description Test Time Test Comments Results Result Comments Source TROPONIN I 2022-05-09 22:15:45 Test Item Value Reference Range Interpretation Comme nts TROPONIN I (test code = 2640415419) 0.001 ng/mL <=0.034 RASHAUN (test code = [...] biotin. Lab Interpretation (test code = Normal 81057-8) [facility] ([id number])2022-05-09 21:58:56 Test Item Value Reference Range Interpretation Comments NA (test code = 138 mmol/L 135-145 2723236596) K (test code = 4.3 mmol/L 3.5-5.0 7791159948) CL (test code = 103 mmol/L 98-108 4035460927) CO2 TOTAL (test code = 18 mmol/L 23-31 L 2398116044) AGAP (test code = 17 2-16 H 0300677566) BUN (test code = 15 mg/dL 7-23 1595969768) GLUCOSE (test code = 136 mg/dL 70-110 H 1886311198) CREATININE (test code = 0.83 mg/dL 0.60-1.25 5645437165) TOTAL BILI (test code = 0.8 mg/dL 0.1-1.9 1207285860) CALCIUM (test code = 10.7 mg/dL 8.6-10.6 H 8184106065) T PROTEIN (test code = 9.2 g/dL 6.3-8.2 H 6714313648) ALBUMIN (test code = 5.5 g/dL 3.5-5.0 H 1248433933) ALK PHOS (test code = 83 U/L 34-122 6184729894) ALTv (test code = 27 U/L 5-50 2-6) AST(SGOT) (test code = 28 U/L 13-40 3796066266) eGFR (test code = 107.4 mL/min/1.73m2 2873790574) RASHAUN (test code = RASHAUN) Association of [...] tests). Lab Interpretation Abnormal (test code = 31109-5) [facility] 21:58:41 Test Item Value Reference Range Interpretation Comments LIPASE (test code = 5925742806) 123 U/L 0-220 Lab Interpretation (test code = Normal 52156-4) [facility] WITH [id number] 21:46:56 Test Item Value Reference Range Interpretation Comments WBC (test code = 16.34 See_Comment H [Automated 9290-2) message] The system which generated this result transmit kevin reference range : 4.20 - 10.70 10*3/?L. The reference range was not used to interpret this result as normal/abnormal . RBC (test code = 5.74 See_Comment H [Automated 189-8) message] The system which generated this result [...] RDW-SD (test code = 40.4 fL 38.5-51.6 87266-5) RDW-CV (test code = 13.4 % 12.1-15.4 788-0) PLT (test code = 333 See_Comment H [Automated 777-3) message] The system which generated this result transmit kevin reference range : 150 - 328 10*3/ ?L. The reference range was not u sed to interpret th is result as normal/abnormal . MPV (test code = 11.6 fL 9.8-13.0 64306-3) NRBC/100 WBC (test 0.0 See_Comment [Automat ed code = 8656342310) message] The system which generated this result transmit kevin reference range : 0.0 - 10.0 /100 WBCs. The reference range was not used to interpret this result as normal/abnormal . NRBC x10^3 (test code See_Comment [Auto mated = 0154011030) message] The system which generated this result transmit kevin reference range : 10*3/?L. The reference range was not used to interpret this result as normal/abnormal . GRAN MAT (NEUT) % 79.8 % (test code = 770-8) IMM GRAN % (test code 0.50 % = 2248278909) LYMPH % (test code = 15.2 % 736-9) MONO % (test code = 3.4 % 5905-5) EOS % (test code = 0.4 % 713-8) BASO % (test code = 0.7 % 706-2) GRAN MAT x10^3(ANC) 13.04 10*3/uL 1.99-6.95 H (test code = 3239883040) IMM GRAN x10^3 (test 0.08 10*3/uL 0.00-0.06 H code = 1482164990) LYMPH x10^3 (test code 2.48 10*3/uL 1.09-3.23 = 731-0) MONO x10^3 (test code 0.56 10*3/uL 0.36-1.02 = 742-7) EOS x10^3 (test code = 0.07 10*3/uL 0.06-0.53 711-2) BASO x10^3 (test code 0.11 10*3/uL 0.01-0.09 H = 704-7) Lab Interpretation Abnormal (test code = 01834-1) [facility]. METABOLIC PANEL ([id number])2020-10-30 02:58:42 Test Item Value Reference Range Interpretation Comments NA (test code = 137 mmol/L 135-145 1267036009) K (test code = 4.0 mmol/L 3.5-5.0 0959112031) CL (test code = 102 mmol/L 98-108 2245980500) CO2 TOTAL (test code = 21 mmol/L 23-31 L 3749580120) AGAP (test code = 2-16 9699586258) BUN (test code = 12 mg/dL 7-23 0309525525) GLUCOSE (test code = 113 mg/dL 70-110 H 9652444954) CREATININE (test code = 0.92 mg/dL 0.60-1.25 6314687012) TOTAL BILI (test code = 1.0 mg/dL 0.1-1.5 9204433805) CALCIUM (test code = 10.4 mg/dL 8.6-10.6 5946179330) T PROTEIN (test code = 8.6 g/dL 6.3-8.2 H 2748447447) ALBUMIN (test code = 5.3 g/dL 3.5-5.0 H 0572486348) ALK PHOS (test code = 86 U/L 34-122 4133051475) ALTv (test code = 23 U/L 5-50 1742-6) AST(SGOT) (test code = 29 U/L 13-40 9269159123) eGFR (test code = mL/min/1.73m2 8966487960) RASHAUN (test code = RASHAUN) Association of [...] tests). Lab Interpretation Abnormal (test code = 65369-4) [facility] WITH [id number] 02:44:58 Test Item Value Reference Range Interpretation Comments WBC (test code = See_Comment H [Automated 0433-2) message] The sy stem which generated this result transmitted reference range : 4.20 - 10.70 10*3/?L. The reference range was not used to interpret this result as normal/abnormal . RBC (test code = See_Comment [Automated 949-8) message] The sy stem which generated this [...] RDW-SD (test code = 41.8 fL 38.5-51.6 06700-6) RDW-CV (test code = 13.3 % 12.1-15.4 788-0) PLT (test code = See_Comment [Automated 777-3) message] The sy stem which generated this result transmitted reference range : 150 - 328 10*3/ ?L. The reference r jammie was not used to interpret this result as normal/abnormal . MPV (test code = 11.3 fL 9.8-13.0 81644-9) NRBC/100 WBC (test See_Comment [Automat ed code = 3326654408) message] The system which generated this result transmitted reference range : 0.0 - 10.0 /100 WBCs. The refer ence range was not u sed to interpret th is result as normal/abnormal . NRBC x10^3 (test code <0.01 See_Comment [Auto mated = 1674335013) message] The s ystem which generated this result transmitted reference range : 10*3/?L. The reference range was not used to interpret this result as normal/abnormal . GRAN MAT (NEUT) % 65.2 % (test code = 770-8) IMM GRAN % (test code 0.30 % = 0936569628) LYMPH % (test code = 25.4 % 736-9) MONO % (test code = 6.5 % 5905-5) EOS % (test code = 1.9 % 713-8) BASO % (test code = 0.7 % 706-2) GRAN MAT x10^3(ANC) 7.12 10*3/uL 1.99-6.95 H (test code = 5174202667) IMM GRAN x10^3 (test 0.03 10*3/uL 0.00-0.06 code = 0514904703) LYMPH x10^3 (test code 2.78 10*3/uL 1.09-3.23 = 731-0) MONO x10^3 (test code 0.71 10*3/uL 0.36-1.02 = 742-7) EOS x10^3 (test code = 0.21 10*3/uL 0.06-0.53 711-2) BASO x10^3 (test code 0.08 10*3/uL 0.01-0.09 = 704-7) Lab Interpretation Abnormal (test code = 28521-7) [facility] [place]"
[2022-12-05 17:26] LABS: Absolute Lymphocytes (CBC) 1.9 K/uL (0.7-4.9); Hematocrit 43.5 % (39.6-49.0); Lymphocytes % 23.6 % (15.3-44.8); MPV 9.3 fL (7.6-11.3); Platelets 259 thou/uL (152-406); RBC Red Blood Cell Count 5.06 M/uL (4.33-5.43)
[2022-12-05 17:30] LABS: Protime INR 0.94
[2022-12-05 18:06] LABS: ALT/SGPT 52 U/L (16-61); Alkaline Phosphatase 86 U/L (45-117); BUN Blood Urea Nitrogen 15 mg/dL (7-18); Bicarbonate 24 mEq/L (21-32); Bilirubin Total 0.3 mg/dL (0.2-1.0); Glomerular Filtration Rate 103 ml/min (=/>90); Glucose Level 110 mg/dL (74-106); Lipase 45 U/L (13-75); NT PRO-BNP 38 pg/mL (<125); Protein, Total 8.4 g/dL (6.4-8.2); Sodium Level 135 mEq/L (136-145); Troponin High Sensitivity 4.1 pg/mL (<58.9)
[2022-12-05 18:09] LABS: AST/SGOT 23 U/L (15-37); Bilirubin Direct < 0.1 mg/dL (0-0.2); Bilirubin Indirect, Calculated ND mg/dL (0.2-0.8); Magnesium 1.9 mg/dL (1.6-2.4); Potassium 3.9 mEq/L (3.5-5.1)
[2022-12-05] MEDS ORDERED: NA CHLORIDE 0.9% 1,000 ML ONE (18:18)
--- NOTE | 2022-12-05 18:28 | RAD REPORT ---
[facility] 6:11 pm CLINICAL HISTORY: CHEST PAIN COMPARISON: No comparisons TECHNIQUE: Portable AP view of the chest. FINDINGS: The lungs are clear. No pneumothorax or effusion. The cardiomediastinal contours are unre markable. IMPRESSION: No acute cardiopulmonary process.
--- NOTE | 2022-12-05 18:55 | EDPHYS ---
Physician Documentation [facility] Name: Vish Valdivia Jr Age: 32 yrs Sex: Male : 1990 Arrival Date: 12/05/2022 Time: 16:45 Bed 10 Private MD: ED Physician Ilya Flores HPI: 12/05 18:46 This 32 yrs old Male presents to ER via Ambulatory with complaints of Chest elmer Pain. 18:46 The patient or guardian reports chest pain that is located primarily in the anterior elmer chest wall, bilaterally. The pain does not radiate. Associated signs and symptoms: Pertinent positives: None. The chest pain is described as aching. Duration: The patient or guardian reports multiple episodes, with no pattern. Modifying factors: The symptoms are alleviated by remaining still, the symptoms are aggravated by movement, palpation of area, twisting torso. Severity of pain: At its worst the pain was mild in the emergency department the pain is unchanged. The patient has experienced similar episodes in the past, multiple times. Historical: - Allergies: 16:57 No Known Allergies; hb - Home Meds: 16:57 None [Active]; hb - PMHx: 16:57 Back pain; Hypertension; hb - PSHx: 16:57 None; hb - Immunization history:: Adult Immunizations up to date. - Social history:: Smoking status: Patient denies any tobacco usage or history of. ROS: 18:47 Constitutional: Negative for fever, chills, and weight loss, Eyes: Negative for injury, elmer pain, redness, and discharge, ENT: Negative for injury, pain, and discharge, Neck: Negative for injury, pain, and swelling, Respiratory: Negative for shortness of breath, cough, wheezing, and pleuritic chest pain, Abdomen/GI: Negative for abdominal pain, nausea, vomiting, diarrhea, and constipation, Back: Negative for injury and pain, : Negative for injury, bleeding, discharge, and swelling, MS/Extremity: Negative for injury and deformity, Skin: Negative for injury, rash, and discoloration, Neuro: Negative for headache, weakness, numbness, tingling, and seizure, Psych: Negative for depression, anxiety, suicide ideation, homicidal ideation, and hallucinations, Allergy/Immunology: Negative for hives, rash, and allergies, Endocrine: Negative for neck swelling, polydipsia, polyuria, polyphagia, and marked weight changes, Hematologic/Lymphatic: Negative for swollen nodes, abnormal bleeding, and unusual bruising, 18:47 Cardiovascular: Positive for chest pain, of the chest, Exam: 18:47 Constitutional: This is a well developed, well nourished patient who is awake, alert, elmer and in no acute distress. Head/Face: Normocephalic, atraumatic. Eyes: Pupils equal round and reactive to light, extra-ocular motions intact. Lids and lashes normal. Conjunctiva and sclera are non-icteric and not injected. Cornea within normal limits. Periorbital areas with no swelling, redness, or edema. ENT: Nares patent. No nasal discharge, no septal abnormalities noted. Tympanic membranes are normal and external auditory canals are clear. Oropharynx with no redness, swelling, or masses, exudates, or evidence of obstruction, uvula midline. Mucous membranes moist. Neck: Trachea midline, no thyromegaly or masses palpated, and no cervical lymphadenopathy. Supple, full range of motion without nuchal rigidity, or vertebral point tenderness. No Meningismus. Chest/axilla: Normal chest wall appearance and motion. Nontender with no deformity. No lesions are appreciated. Cardiovascular: Regular rate and rhythm with a normal S1 and S2. No gallops, murmurs, or rubs. Normal PMI, no JVD. No pulse deficits. Respiratory: Lungs have equal breath sounds bilaterally, clear to auscultation and percussion. No rales, rhonchi or wheezes noted. No increased work of breathing, no retractions or nasal flaring. Abdomen/GI: Soft, non-tender, with normal bowel sounds. No distension or tympany. No guarding or rebound. No evidence of tenderness throughout. Back: No spinal tenderness. No costovertebral tenderness. Full range of motion. Male : Normal genitalia with no discharge or lesions. Skin: Warm, dry with normal turgor. Normal color with no rashes, no lesions, and no evidence of cellulitis. MS/ Extremity: Pulses equal, no cyanosis. Neurovascular intact. Full, normal range of motion. Neuro: Awake and alert, GCS 15, oriented to person, place, time, and situation. Cranial nerves II-XII grossly intact. Motor strength 5/5 in all extremities. Sensory grossly intact. Cerebellar exam normal. Normal gait. Psych: Awake, alert, with orientation to person, place and time. Behavior, mood, and affect are within normal limits. 18:47 ECG was reviewed by the Attending Physician. 18:47 Musculoskeletal/extremity: DVT Exam: No signs of deep vein thrombosis. no pain, no swelling, no tenderness, negative Homans' sign noted on exam, no appreciated bluish discoloration, no erythema, no increased warmth, Vital Signs: 16:55 BP 156 / 88; Pulse 84; Resp 16; Temp 99.1(O); Pulse Ox 99% on R/A; Weight 113.4 kg; hb Height 5 ft. 7 in. ; Pain 8/10; 19:35 BP 144 / 84; Pulse 81; Resp 16; Pulse Ox 100% ; cp4 16:55 Body Mass Index 39.16 (113.40 kg, 170.18 cm) hb 16:55 Pain Scale: Adult hb Trino Coma Score: 18:47 Eye Response: spontaneous(4). Motor Response: obeys commands(6). Verbal Response: elmer oriented(5). Total: 15. MDM: 16:52 Patient medically screened. elmer 18:48 Differential diagnosis: abnormal EKG, acute myocardial infarction, acute pericarditis, elmer chest wall pain, Cholelithiasis costochondritis, esophagitis, hiatal hernia, peptic ulcer disease, pleurisy, pneumonia, pneumothorax, pulmonary embolus, stable angina, thoracic aortic disection, unstable angina. HEART Score: History: Slightly Suspicious (0), ECG: Normal (0), Age: < or = 45 years (0), Risk Factors: 1 or 2 risk factors (1), [Hypertension] [+ Family HX] Troponin: < or = 1 x Normal Limit (0). MALCOLM Risk Score: TOTAL SCORE = 0. Data reviewed: vital signs, nurses notes, lab test result(s), EKG, radiologic studies, plain films. Consideration of Admission/Observation Escalation of care including admission/observation considered. I considered the following discharge prescriptions or medication management in the emergency department Medications were administered in the Emergency Department. See MAR. Independent interpretation of the following test(s) in the Emergency Department EKG: See my EKG interpretation above. Test considered but Not performed: CT: NO CT CHEST RO PE. Historians other than the Patient: Spouse/Significant Other: SIGN OTHER, , GIRLFRIEND. Care significantly affected by the following chronic conditions: Hypertension, Obesity. Counseling: I had a detailed discussion with the patient and/or guardian regarding the historical points, exam findings, and any diagnostic results supporting the discharge/admit diagnosis, the presence of at least one elevated blood pressure reading (>120/80) during this emergency department visit, lab results, radiology results, the need for outpatient follow up, for definitive care, a entry manager, a family practitioner. 12/05 16:52 Order name: Basic Metabolic Panel; Complete Time: 18:11 [facility] 12/05 16:52 Order name: CBC with Diff; Complete Time: 18:11 [facility] 12/05 16:52 Order name: LFT's; Complete Time: 18:11 [facility] 12/05 16:52 Order name: Magnesium; Complete Time: 18:11 [facility] 12/05 16:52 Order name: NT PRO-BNP; Complete Time: 18:11 [facility] 12/05 16:52 Order name: PT-INR; Complete Time: 18:11 [facility] 12/05 16:52 Order name: Troponin HS; Complete Time: 18:11 [facility] 12/05 16:52 Order name: Lipase; Complete Time: 18:11 [facility] 12/05 16:52 Order name: XRAY Chest (1 view); Complete Time: 18:45 [facility] 12/05 16:52 Order name: EKG; Complete Time: 16:53 [facility] 12/05 16:52 Order name: Cardiac monitoring [facility] 12/05 16:52 Order name: EKG - Nurse/Tech; Complete Time: 17:20 [facility] 12/05 16:52 Order name: IV Saline Lock; Complete Time: 17:20 [facility] 12/05 16:52 Order name: Labs collected and sent; Complete Time: 17:20 [facility] 12/05 16:52 Order name: O2 Per Protocol; Complete Time: 17:20 [facility] 12/05 16:52 Order name: O2 Sat Monitoring; Complete Time: 17:20 [facility] EC:47 Rate is 78 beats/min. Rhythm is regular. QRS [place] is Normal. LA interval is normal. QRS elmer interval is normal. QT interval is normal. No Q waves. T waves are Normal. No ST changes noted. Clinical impression: NSR w/ Non-specific ST/T Changes and No evidence of ischemia. Interpreted by me. Reviewed by me. Administered Medications: 18:09 Drug: Aspirin PO Chewable Tablet 162 mg PO once Route: PO; hb 18:09 Drug: NS 0.9% IV 1000 ml IV at 1 bolus Per protocol; 1000 mL bolus Route: IV; Rate: 1 hb bolus; Site: right antecubital; 19:35 Drug: Lisinopril PO 10 mg PO once Route: PO; cp4 Disposition Summary: 12/05/22 18:54 Discharge Ordered Notes: Location: Home elmer Problem: new elmer Symptoms: have improved elmer Condition: Stable elmer Diagnosis - Chest pain, unspecified elmer - Strain of muscle and tendon of front wall of thorax elmer - Essential (primary) hypertension elmer - Obesity, unspecified elmer - Tobacco abuse counseling elmer - Tobacco use elmer Followup: elmer - With: Private Physician - When: 2 - 3 days - Reason: Recheck today's complaints, Continuance of care, Re-evaluation by your physician Followup: elmer - With: Samuel Ashraf MD - When: 2 - 3 days - Reason: Recheck today's complaints, Re-evaluation by your physician Discharge Instructions: - Discharge Summary Sheet elmer - Chest Wall Pain elmer - Hypertension, Adult elmer - Obesity, Adult elmer - Steps to Quit Smoking elmer - Hypertension, Adult, [id number] elmer - How to Take Your Blood Pressure, [id number] elmer - Aspirin and Your Heart elmer - Managing Your Hypertension elmer - Obesity, Adult, [id number] elmer Forms: - Medication Reconciliation Form elmer - Thank You Letter elmer - Antibiotic Education elmer - Prescription Opioid Use elmer - Patient Portal Instructions elmer - Leadership Thank You Letter elmer - Family Work Release cp4 Prescriptions: - Lisinopril 10 mg Oral Tablet - take 1 tablet ORAL route once daily; 20 tablet; Refills: 0, Product Selection elmer Permitted Signatures: Dispatcher [employer] Ilya Recinos MD MD cha Baxter, Heather, RN RN Yesenia Knight cp4
--- NOTE | 2022-12-05 18:55 | ER ---
Nurse's Notes [facility] Name: Vish Valdivia Jr Age: 32 yrs Sex: Male : 1990 Arrival Date: 12/05/2022 Time: 16:45 Bed 10 Private MD: Diagnosis: Chest pain, unspecified;Strain of muscle and tendon of front wall of thorax;Essential (primary) hypertension;Obesity, unspecified;Tobacco abuse counseling;Tobacco use Presentation: 12/05 16:55 Chief complaint: Intermittent substernal chest montoya that radiates to left chest and left hb face, nausea, and SOB x 1 week, pain became worse this afternoon. Coronavirus screen: At this time, the client does not indicate any symptoms associated with coronavirus-19. Ebola Screen: No symptoms or risks identified at this time. Initial Sepsis Screen: Does the patient meet any 2 criteria? No. Patient's initial sepsis screen is negative. Does the patient have a suspected source of infection? No. Patient's initial sepsis screen is negative. Risk Assessment: Do you want to hurt yourself or someone else? Patient reports no desire to harm self or others. Onset of symptoms was December 05, 2022. 16:55 Method Of Arrival: Ambulatory hb 16:55 Acuity: HIPOL[place] 3 hb Triage Assessment: 20:28 General: Behavior is calm, cooperative, appropriate for age. cp4 Historical: - Allergies: 16:57 No Known Allergies; hb - Home Meds: 16:57 None [Active]; hb - PMHx: 16:57 Back pain; Hypertension; hb - PSHx: 16:57 None; hb - Immunization history:: Adult Immunizations up to date. - Social history:: Smoking status: Patient denies any tobacco usage or history of. Screenin:43 [facility] ED Fall Risk Assessment (Adult) History of falling in the last 3 months, cp4 including since admission No falls in past 3 months (0 pts) Confusion or Disorientation No (0 pts) Intoxicated or Sedated No (0 pts) Impaired Gait No (0 pts) Mobility Assist Device Used No (0 pt) Altered Elimination No (0 pt) Score/Fall Risk Level 0 - 2 = Low Risk Oriented to surroundings, Maintained a safe environment, Educated pt \T\ family on fall prevention, incl call for assistance when getting out of bed, Hourly rounding (assess needs \T\ fall precautionary measures) done. Abuse screen: Denies threats or abuse. Nutritional screening: No deficits noted. Tuberculosis screening: No symptoms or risk factors identified. Assessment: 18:43 General: Appears in no apparent distress. Pain: Pain does not radiate. Pain began 2-3 cp4 days ago. Cardiovascular: Reports chest pain, shortness of breath. Vital Signs: 16:55 BP 156 / 88; Pulse 84; Resp 16; Temp 99.1(O); Pulse Ox 99% on R/A; Weight 113.4 kg; hb Height 5 ft. 7 in. ; Pain 8/10; 19:35 BP 144 / 84; Pulse 81; Resp 16; Pulse Ox 100% ; cp4 16:55 Body Mass Index 39.16 (113.40 kg, 170.18 cm) hb 16:55 Pain Scale: Adult hb Trino Coma Score: 18:47 Eye Response: spontaneous(4). Motor Response: obeys commands(6). Verbal Response: elmer oriented(5). Total: 15. ED Course: 16:47 Patient arrived in ED. mg5 16:52 Ilya Flores MD is Attending Physician. elmer 16:57 Triage completed. hb 16:58 Arm band placed on. hb 17:15 Inserted saline lock: 20 gauge in right antecubital area, using aseptic technique. hb Blood collected. 17:20 Basic Metabolic Panel Sent. hb 17:20 CBC with Diff Sent. hb 17:20 LFT's Sent. hb 17:20 Magnesium Sent. hb 17:20 NT PRO-BNP Sent. hb 17:20 PT-INR Sent. hb 17:20 Troponin HS Sent. hb 18:12 XRAY Chest (1 view) In Process Unspecified. EDMS 18:30 Yesenia Man is Primary Nurse. cp4 18:43 Bed in low position. Call light in reach. Side rails up X 1. Client placed on cp4 continuous cardiac and pulse oximetry monitoring. NIBP monitoring applied. residential monitor on. 18:43 Patient maintains SpO2 saturation greater than 95% on room air. cp4 18:52 Samuel Ashraf MD is Referral Physician. elmer 19:35 Provided Education on: chest pain. cp4 19:35 No provider procedures requiring assistance completed. intact, bleeding controlled, No cp4 redness/swelling at site. Pressure dressing applied. Administered Medications: 18:09 Drug: Aspirin PO Chewable Tablet 162 mg PO once Route: PO; hb 18:09 Drug: NS 0.9% IV 1000 ml IV at 1 bolus Per protocol; 1000 mL bolus Route: IV; Rate: 1 hb bolus; Site: right antecubital; 19:35 Drug: Lisinopril PO 10 mg PO once Route: PO; cp4 Medication: 18:43 VIS not applicable for this client. cp4 Outcome: 18:54 Discharge ordered by . elmer 19:35 Discharged to home ambulatory, cp4 19:35 Condition: stable 19:35 Discharge instructions given to patient, Instructed on discharge instructions, follow up and referral plans. medication usage, Demonstrated understanding of instructions, follow-up care, medications, Prescriptions given X 1, 20:29 Patient left the ED. cp4 Signatures: Dispatcher [employer] Ilya Recinos MD MD cha Baxter, Heather, RN RN Kristine Cutler mg5 Yesenia Man cp4
[2022-12-05] MEDS ORDERED: lisinopriL 10 MG TAB ONE (19:23)
[2022-12-05 21:00] VITALS: TEMP 99.1
[2022-12-05 21:01] VITALS: BP 144/84; O2SAT 100
--- NOTE | 2022-12-06 18:04 | EKG ---
Test Date: 2022-12-05 Test Time: 17:06:11 [employer]: HB MEASUREMENT RESULTS: Intervals: Rate: 78 TX: 142 QRSD: 100 QT: 366 QTc: 417 [place]: P: 53 TX: 142 QRS: 36 T: 32 INTERPRETIVE STATEMENTS: Normal sinus rhythm Normal ECG No previous ECG available for comparison Electronically Signed On 12-06-22 18:03:08 CDT by Samuel Ashraf
== END 2022-12-05 20:29 | disposition home or self-care (01) ==
LOC: ER 16:45
DX: S29.011A Strain of muscle and tendon of front wall of thorax, initial encounter (principal); I10 Essential (primary) hypertension; E66.9 Obesity, unspecified; Z68.39 Body mass index [BMI] 39.0-39.9, adult; Z72.0 Tobacco use; Z71.6 Tobacco abuse counseling
CPT/HCPCS: 93005; 85025; 80048; 36415; 83735; 85610; 80076; 84484; 83690; 83880; 71045; 99285; J7030

== ENCOUNTER 2022-12-08 21:37 | Emergency (ER) | payer OTHER ==
--- OUTSIDE RECORDS SUMMARY | 2022-12-08 21:40 | XMS REPORT | Continuity of Care Document ---
:1990 Author Organization [facility] t Address [address] [place] [address] [place] [address] Care Team Providers Name Role Phone PCP, PATIENT DOES NOT HAVE A Primary Care Physician Unavaila MURRAY Agosto Attending Clinician Unavailable Murray Hooper Attending Clinician Doctor Unassigned, [place] Attending Clinician Unavailable Shade Reed MD Attending Clinician SHADE REED Attending Clinician Unavailable SRIDHAR MARROQUIN Attending Clinician Unavailable MURRAY URIOSTEGUI Admitting Clinician Unavailable Payers Payer Name Policy Type Policy Number Effective Date Expiration Date S debi [employer] [id number] 2022 OUT OF NETWORK 00:00:00 Problems Condition Condition Condition Status Onset Resolution Last Treating Co mments Source Name Details Category Date Date Treatment Clinician Date No known No known Disease Unive rs active active ity of problems problems [facility] Allergies, Adverse Reactions, Alerts Allergy Allergy Status Severity Reaction(s) Onset Inactive Treating Comm ents Source Name Type Date Date Clinician NO KNOWN Drug Active Univers ALLERGIE Class ity of S [facility] Social History Social Habit Start Date Stop Date Quantity Comments Source Gender identity Universit y [facility] Sexual [facility] to 2022-04-29 2022-05-09 Not sure [facility] SARS-CoV-2 (event) 00:00:00 16:06:00 Medica l Branch Sex Assigned At [birth year] Uni [facility] 00:00:00 00:00:00 Medical Branch Smoking Status Start Date Stop Date Source Tobacco smoking consumption [facility] Medical unknown Branch Medications Ordered Filled Start Stop Current Ordering Indication Dosage Frequency Signature Comments Components Source Medication Medication Date Date Medication? Clinician (SIG) Name Name ondansetron 2022- No 4mg 4 mg, [facility] (ZOFRAN-ODT 05-10 Oral, ity of ) 01:15: 00:44 ONCE, 1 [place] disintegrat 00 :00 dose, On Medi garrett ing tablet Sun05/09/22 Bra nch 4 mg at 2014, DAYLIN NaCl 0.9% 2022- No 1000mL at 999 Uni vers (NS) bolus 05-10 mL/hr, ity of infusion 00:45: 01:53 1,000 mL, Baraham as 1,000 mL 00 :00 IV Medical Infusion, Branch ONCE, 1 dose, On Sun05/09/22 at 1945, DAYLIN dicyclomine 2022- No 20mg 20 mg, Uni vers (BENTYL) 05-10 Oral, ity of tablet 20 00:30: 00:44 ONCE, 1 [place] mg 00 :00 dose, On Medical Sun05/09/22 Branch at 1930, DAYLIN iopamidol 2022- No [id number] 75mL 75 mL, Univers (ISOVUE 05-09 Intravenou ity o f 370-500 mL) 22:52: 22:52 s, ONCE, 1 [place] injection 00 :00 dose, On Medica l 75 mL e 05/09/22 Branch at 1815, Routine proMETHazin 2022- No 12.5mg 12.5 mg, Univers e 05-09 IV ity of (PHENERGAN) 22:30: 22:35 Piggyback, [place] 12.5 mg in 00 :00 ONCE, 1 Medica l NaCl 0.9% dose, On Branch (NS) 50 mL 05/09/22 IV at 1730, piggyback DAYLIN NaCl 0.9% 2022- No 1000mL at 999 Uni vers (NS) bolus 05-09 04-05 mL/hr, ity of infusion 22:15: 00:03 1,000 mL, Abraham as 1,000 mL 00 :00 IV Medical Infusion, Branch ONCE, 1 dose, On Sun05/09/22 at 1715, DAYLIN ketorolac 2022- No 30mg 30 mg, Unive rs (TORADOL) 05-09- Slow IV ity of injection 21:30: 21:44 Push, [place] 30 mg 00 :00 ONCE, 1 Medical dose, On Branch Sun05/09/22 at 1630, Routine ondansetron 2022- No 4mg 4 mg, Slow Univers (ZOFRAN 05-09- IV Push, ity of (PF)) 21:30: 21:24 ONCE, 1 [place] injection 4 00 :00 dose, On Medi garrett mg Sun05/09/22 Branch at 1630, DAYLIN dicyclomine Yes [id number] 20mg Take 1 Univers 20 mg 4-04 tablet by ity of tablet 00:00: mouth 4 [place] 00 (four) Medical times Branch daily as needed for Abdominal pain. ondansetron 0 Yes [id number] 4mg Take 1 Univers 4 mg 4-04 tablet by ity of disintegrat 00:00: mouth [place] ing tablet 00 every 8 Medica l (eight) Branch hours as needed for Nausea and Vomiting (N/V). dicyclomine 2022-0 Yes [id number] 20mg Take 1 Univers 20 mg 4-04 tablet by ity of tablet 00:00: mouth 4 [place] 00 (four) Medical times Branch daily as needed for Abdominal pain. ondansetron 2022-0 Yes [id number] 4mg Take 1 Univers 4 mg 4-04 tablet by ity of disintegrat 00:00: mouth [place] ing tablet 00 every 8 Medica l (eight) Branch hours as needed for Nausea and Vomiting (N/V). doxycycline 2020- No 100mg 100 mg, U nivers hyclate 10-30 Oral, ity of (Vibramycin 06:15: 05:14 ONCE, [...] 10/30/20 at 0100, Routine iohexol 2020- No [id number] 120mL 120 mL, Univers (OMNIPAQUE 10-30 [id number] Intravenou ity of 350 04:15: 04:06 s, ONCE, 1 [place] BULK-100 00 :00 dose, On Medical mL) Fri Branch injection 10/29/20 at 120 mL 2315, Routine ketorolac 2020- No 30mg 30 mg, Unive rs (TORADOL) 10-30 Slow IV ity of injection 03:30: 02:32 Push, [place] 30 mg 00 :00 ONCE, 1 Medical dose, On Branch 10/29/20 at 2230, Routine
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 Indication s: acute pain doxycycline Yes [id number] 100mg Take 1 Univers hyclate 100 9-24 capsule by it y of mg capsule 00:00: mouth 2 [place] 00 (two) Medical times Branch daily. traMADoL Yes [id number] 50mg Take 1 Univers (ULTRAM) 50 9-24 tablet by ity of mg tablet 00:00: mouth [place] 00 every 6 Medical (six) Branch hours as needed for Pain (scale 7-10). Indication s: acute pain doxycycline Yes [id number] 100mg Take 1 Univers hyclate 100 9-24 capsule by it y of mg capsule 00:00: mouth 2 [place] 00 (two) Medical times Branch daily. traMADoL Yes [id number] 50mg Take 1 Univers (ULTRAM) 50 9-24 tablet by ity of mg tablet 00:00: mouth [place] 00 every 6 Medical (six) Branch hours as needed for Pain (scale 7-10). Indication s: acute pain doxycycline Yes [id number] 100mg Take 1 Univers hyclate 100 9-24 capsule by it y of mg capsule 00:00: mouth 2 [place] 00 (two) Medical times Branch daily. traMADoL Yes [id number] 50mg Take 1 Univers (ULTRAM) 50 9-24 tablet by ity of mg tablet 00:00: mouth [place] 00 every 6 Medical (six) Branch hours as needed for Pain (scale 7-10). Indication s: acute pain doxycycline Yes [id number] 100mg Take 1 Univers hyclate 100 9-24 capsule by it y of mg capsule 00:00: mouth 2 [place] 00 (two) Medical times Branch daily. Vital Signs Vital Name Observation Time Observation Value Comments Source Oxygen saturation in 2022-05-10 01:50:00 100 /min [facility] Arterial blood by [facility] Pulse oximetry Branch Heart rate 2022-05-10 01:50:00 78 /min [facility] Respiratory rate 2022-05-10 01:50:00 15 /min [facility] Systolic blood 2022-05-10 01:00:00 132 mm[Hg] [facility] Diastolic blood 2022-05-10 01:00:00 64 mm[Hg] [facility] Body temperature 2022-05-09 21:26:00 35.94 Marichuy [facility] Body height 2022-05-09 21:05:00 172.7 cm [facility] Body weight 2022-05-09 21:05:00 106.595 kg [facility] BMI 2022-05-09 21:05:00 35.73 kg/m2 [facility] Systolic blood 2020-10-30 05:24:00 130 mm[Hg] [facility] Diastolic blood 2020-10-30 05:24:00 81 mm[Hg] [facility] rsity of pressure [facility] Heart rate 2020-10-30 05:24:00 67 /min [facility] Respiratory rate 2020-10-30 05:24:00 16 /min [facility] Oxygen saturation in 2020-10-30 05:24:00 100 /min [facility] Arterial blood by [facility] Pulse oximetry [place] Body temperature 2020-10-30 01:57:26 36.28 Marichuy [facility] Body weight 2020-10-30 01:55:00 108.863 kg [facility] BMI 2020-10-30 01:55:00 37.59 kg/m2 [facility] Body height 2020-10-30 01:55:00 170.2 cm [facility] Procedures Procedure Date / Time Performing Clinician Source Performed CONSENT/REFUSAL FOR 2022-10-17 01:16:23 [facility], [facility] CT ABDOMEN PELVIS W 2022-05-09 23:02:00 Murray Uriostegui [facility] CONTRAST [facility] URINALYSIS 2022-05-09 22:42:00 Murray Uriostegui [facility] URINE DRUG (IMMUNOASSAY) 2022-05-09 22:42:00 [facility] SCREEN W/O REFLEX LIPASE 2022-05-09 21:21:00 Murray Uriostegui [facility] TROPONIN I 2022-05-09 21:21:00 Murray Uriostegui [facility] COMP. METABOLIC PANEL 2022-05-09 21:21:00 [facility] [place] ([id number]) [facility] CBC WITH DIFF 2022-05-09 21:21:00 Murray Uriostegui [facility] NOTICE OF PRIVACY 2022-05-09 21:02:32 Doctor Unassigned, No Univ [facility] PRACTICES [facility] CONSENT/REFUSAL FOR 2022-05-09 20:59:14 Doctor Unassigned, No [facility] CT ABDOMEN PELVIS W 2020-10-30 04:09:51 Shade Reed [facility] US SCROTUM AND CONTENTS 2020-10-30 03:24:00 [facility] MET[facility]OLIC PANEL 2020-10-30 02:31:00 Shade Reed [facility] ([id number]) [facility] CBC WITH DIFF 2020-10-30 02:31:00 Shade Reed [facility] URINALYSIS 2020-10-30 02:31:00 Shade Reed [facility] CONSENT/REFUSAL FOR 2020-10-30 01:46:01 Doctor Unassmic, No Un [facility] DIAGNOSIS AND TREATMENT Name [facility] Encounters Start End Encounter Admission Attending Care Care Encounter Source Date/Time Date/Time Type Type Clinicians Facility Department ID 2022-10-16 2022-10-16 Emergency X [facility] ERT [id number] Univers 20:34:00 20:35:00 ity [facility] 2022-10-16 2022-10-16 Emergency [facility] [id number] Univers 20:34:00 20:35:00 [place] 350.1.13.10 i ty of [place] 4.2.7.2.686 [facility] [id number] [address] 2022-05-09 2022-05-09 Emergency X [facility], [facility] ERT [id number] Univers 16:12:00 20:56:00 [facility] 2022-05-09 2022-05-09 Emergency [facility], [facility] [id number] Univers 16:12:00 20:56:00 Murray DILCIA 350.1.13.10 i ty of [place] 4.2.7.2.686 [facility] [id number] [address] 2022-05-09 2022-05-09 Orders Doctor GUTIERREZ [id number] Univers 00:00:00 00:00:00 Only Unassigned, DEUCE 350.1.13.10 ity of [place] [facility] 4.2.7.2.686 Abraham [id number] [facility] 009 Branch 2020-10-29 2020-10-30 Emergency [facility] [id number] Univers 20:48:00 00:26:00 Shade Onofre [place] 350.1.13.10 ity [facility] 4.2.7.2.686 [place] [facility] [id number] [facility] 084 Branch 2020-10-29 2020-10-29 Emergency X DEREK [facility] ERT [id number] Univers 20:48:00 20:48:00 [facility] 2019-05-22 2019-05-22 Emergency E AZNAUROVA-A MHBL MHBL [id number] MHBL 18:33:00 20:18:00 SRIDHAR TRAN Results Test Description Test Time Test Comments Results Result Comments Source TROPONIN I 2022-05-09 22:15:45 Test Item Value Reference Range Interpretation Comme nts TROPONIN I (test code = 4996743707) 0.001 ng/mL <=0.034 RASHAUN (test code = [...] biotin. Lab Interpretation (test code = Normal 09292-1) [facility] ([id number])2022-05-09 21:58:56 Test Item Value Reference Range Interpretation Comments NA (test code = 138 mmol/L 135-145 7559259867) K (test code = 4.3 mmol/L 3.5-5.0 9404438035) CL (test code = 103 mmol/L 98-108 4521957365) CO2 TOTAL (test code = 18 mmol/L 23-31 L 8192698384) AGAP (test code = 17 2-16 H 6263346428) BUN (test code = 15 mg/dL 7-23 2208293129) GLUCOSE (test code = 136 mg/dL 70-110 H 3808280006) CREATININE (test code = 0.83 mg/dL 0.60-1.25 9569205802) TOTAL BILI (test code = 0.8 mg/dL 0.1-1.3 7870927743) CALCIUM (test code = 10.7 mg/dL 8.6-10.6 H 6687895017) T PROTEIN (test code = 9.2 g/dL 6.3-8.2 H 6889366442) ALBUMIN (test code = 5.5 g/dL 3.5-5.0 H 9904737349) ALK PHOS (test code = 83 U/L 34-122 4433930880) ALTv (test code = 27 U/L 5-50 1742-6) AST(SGOT) (test code = 28 U/L 13-40 4881595266) eGFR (test code = 107.4 mL/min/1.73m2 4855564518) RASHAUN (test code = RASHAUN) Association of [...] tests). Lab Interpretation Abnormal (test code = 95831-1) [facility] 21[facility]58:41 Test Item Value Reference Range Interpretation Comments LIPASE (test code = 9558611431) 123 U/L 0-220 Lab Interpretation (test code = Normal 76474-1) [facility] [id number] 21:46:56 Test Item Value Reference Range Interpretation Comments WBC (test code = 16.34 See_Comment H [Automated 6990-2) message] The system which generated this result transmit kevin reference range : 4.20 - 10.70 10*3/?L. The reference range was not used to interpret this result as normal/abnormal . RBC (test code = 5.74 See_Comment H [Automated 299-8) message] The system which generated this result [...] RDW-SD (test code = 40.4 fL 38.5-51.6 06846-2) RDW-CV (test code = 13.4 % 12.1-15.4 788-0) PLT (test code = 333 See_Comment H [Automated 777-3) message] The system which generated this result transmit kevin reference range : 150 - 328 10*3/ ?L. The reference range was not u sed to interpret th is result as normal/abnormal . MPV (test code = 11.6 fL 9.8-13.0 99135-0) NRBC/100 WBC (test 0.0 See_Comment [Automat ed code = 5406574150) message] The system which generated this result transmit kevin reference range : 0.0 - 10.0 /100 WBCs. The reference range was not used to interpret this result as normal/abnormal . NRBC x10^3 (test code See_Comment [Auto mated = 5924182560) message] The system which generated this result transmit kevin reference range : 10*3/?L. The reference range was not used to interpret this result as normal/abnormal . GRAN MAT (NEUT) % 79.8 % (test code = 770-8) IMM GRAN % (test code 0.50 % = 1165385234) LYMPH % (test code = 15.2 % 736-9) MONO % (test code = 3.4 % 5905-5) EOS % (test code = 0.4 % 713-8) BASO % (test code = 0.7 % 706-2) GRAN MAT x10^3(ANC) 13.04 10*3/uL 1.99-6.95 H (test code = 7986892604) IMM GRAN x10^3 (test 0.08 10*3/uL 0.00-0.06 H code = 4875993361) LYMPH x10^3 (test code 2.48 10*3/uL 1.09-3.23 = 731-0) MONO x10^3 (test code 0.56 10*3/uL 0.36-1.02 = 742-7) EOS x10^3 (test code = 0.07 10*3/uL 0.06-0.53 711-2) BASO x10^3 (test code 0.11 10*3/uL 0.01-0.09 H = 704-7) Lab Interpretation Abnormal (test code = 07959-1) [facility]. METABOLIC PANEL (64829)2020-10-30 02:58:42 Test Item Value Reference Range Interpretation Comments NA (test code = 137 mmol/L 135-145 1622925918) K (test code = 4.0 mmol/L 3.5-5.0 3554719767) CL (test code = 102 mmol/L 98-108 9886898568) CO2 TOTAL (test code = 21 mmol/L 23-31 L 2965810616) AGAP (test code = 2-16 0499111986) BUN (test code = 12 mg/dL 7-23 4817067777) GLUCOSE (test code = 113 mg/dL 70-110 H 6232773635) CREATININE (test code = 0.92 mg/dL 0.60-1.25 0401275121) TOTAL BILI (test code = 1.0 mg/dL 0.1-1.7 3014176043) CALCIUM (test code = 10.4 mg/dL 8.6-10.6 3553694997) T PROTEIN (test code = 8.6 g/dL 6.3-8.2 H 1130182950) ALBUMIN (test code = 5.3 g/dL 3.5-5.0 H 5481839099) ALK PHOS (test code = 86 U/L 34-122 1169207159) ALTv (test code = 23 U/L 5-50 1742-6) AST(SGOT) (test code = 29 U/L 13-40 4017432301) eGFR (test code = mL/min/1.73m2 0918080184) RASHAUN (test code = RASHAUN) Association of [...] tests). Lab Interpretation Abnormal (test code = 18687-3) [facility] WITH [id number] 02:44:58 Test Item Value Reference Range Interpretation Comments WBC (test code = See_Comment H [Automated 8190-2) message] The sy stem which generated this result transmitted reference range : 4.20 - 10.70 10*3/?L. The reference range was not used to interpret this result as normal/abnormal . RBC (test code = See_Comment [Automated 789-8) message] The sy stem which generated this [...] RDW-SD (test code = 41.8 fL 38.5-51.6 82365-0) RDW-CV (test code = 13.3 % 12.1-15.4 788-0) PLT (test code = See_Comment [Automated 777-3) message] The sy stem which generated this result transmitted reference range : 150 - 328 10*3/ ?L. The reference r jammie was not used to interpret this result as normal/abnormal . MPV (test code = 11.3 fL 9.8-13.0 80533-8) NRBC/100 WBC (test See_Comment [Automat ed code = 0072947678) message] The system which generated this result transmitted reference range : 0.0 - 10.0 /100 WBCs. The refer ence range was not u sed to interpret th is result as normal/abnormal . NRBC x10^3 (test code <0.01 See_Comment [Auto mated = 6454342190) message] The s ystem which generated this result transmitted reference range : 10*3/?L. The reference range was not used to interpret this result as normal/abnormal . GRAN MAT (NEUT) % 65.2 % (test code = 770-8) IMM GRAN % (test code 0.30 % = 1486439010) LYMPH % (test code = 25.4 % 736-9) MONO % (test code = 6.5 % 5905-5) EOS % (test code = 1.9 % 713-8) BASO % (test code = 0.7 % 706-2) GRAN MAT x10^3(ANC) 7.12 10*3/uL 1.99-6.95 H (test code = 4925743922) IMM GRAN x10^3 (test 0.03 10*3/uL 0.00-0.06 code = 0389384368) LYMPH x10^3 (test code 2.78 10*3/uL 1.09-3.23 = 731-0) MONO x10^3 (test code 0.71 10*3/uL 0.36-1.02 = 742-7) EOS x10^3 (test code = 0.21 10*3/uL 0.06-0.53 711-2) BASO x10^3 (test code 0.08 10*3/uL 0.01-0.09 = 704-7) Lab Interpretation Abnormal (test code = 53177-5) [facility]"
[2022-12-08 22:48] LABS: Absolute Lymphocytes (CBC) 3.1 K/uL (0.7-4.9); Lymphocytes % 28.6 % (15.3-44.8); MCV 85.4 fL (80-100); MPV 8.8 fL (7.6-11.3); Platelets 274 thou/uL (152-406)
[2022-12-08] MEDS ORDERED: METOCLOPRAMIDE 10 MG/2mL INJ ONE (22:51)
[2022-12-08] MEDS ORDERED: MORPHINE 4 MG/ML SYR ONE (22:52)
[2022-12-08] MEDS ORDERED: PANTOPRAZOLE 40 MG INJ ONE (22:52)
[2022-12-08] MEDS ORDERED: NA CHLORIDE 0.9% 1,000 ML ONE (22:52)
[2022-12-08] MEDS ORDERED: NA CHLORIDE 0.9% 50 ML ONE (22:53)
[2022-12-08 23:08] LABS: Albumin 4.2 g/dL (3.4-5.0); Bilirubin Direct 0.2 mg/dL (0-0.2); Bilirubin Indirect, Calculated 0.7 mg/dL (0.2-0.8); Bilirubin Total 0.9 mg/dL (0.2-1.0); Magnesium 2.1 mg/dL (1.6-2.4); Potassium 3.2 mEq/L (3.5-5.1); Protein, Total 8.4 g/dL (6.4-8.2); Troponin High Sensitivity 5.5 pg/mL (<58.9)
--- NOTE | 2022-12-09 01:25 | EDPHYS ---
Physician Documentation [facility] Name: Vish Valdivia Jr Age: 32 yrs Sex: Male : 1990 Arrival Date: 12/08/2022 Time: 21:37 Bed 4 Private MD: ED Physician Frandy Canela HPI: 12/08 22:30 This 32 yrs old Male presents to ER via Ambulatory with complaints of cp Abdominal Pain, Chest Pain. 22:30 The patient presents with abdominal pain that is diffuse. cp 22:30 Onset: The symptoms/episode began/occurred 3 day(s) ago. cp 22:30 The symptoms radiate to chest. Associated signs and symptoms: Pertinent positives: cp constipation, shortness of breath, Pertinent negatives: blood in stools, diarrhea, dysuria, fever, active vomiting. 22:30 The symptoms are described as sharp. cp Historical: - Allergies: 22:24 No Known Allergies; vc1 - PMHx: 22:24 Back pain; Hypertension; vc1 - PSHx: 22:24 None; vc1 - Immunization history:: Client reports having NOT received the Covid vaccine. - Social history:: Smoking status: Patient/guardian denies using tobacco, Stopped _ months ago 1. ROS: 22:35 Constitutional: Negative for body aches, chills, fever, cp 22:35 Eyes: Negative for injury, pain, redness, and discharge, cp 22:35 ENT: Negative for drainage from ear(s), ear pain, sore throat, difficulty swallowing, difficulty handling secretions, 22:35 Cardiovascular: Positive for chest pain, Negative for edema, palpitations, 22:35 Respiratory: Positive for shortness of breath, Negative for cough, wheezing, 22:35 Abdomen/GI: Positive for abdominal pain, nausea, constipation, Negative for diarrhea, active vomiting, 22:35 : Negative for urinary symptoms, testicular pain 22:35 Neuro: Negative for altered mental status, syncope, 22:35 All other systems are negative, Exam: 22:22 ECG was reviewed by the Attending Physician. cp 22:40 Constitutional: The patient appears in no acute distress, alert, awake, cp non-diaphoretic, non-toxic, well developed, well nourished, overweight 22:40 Head/Face: Normocephalic, atraumatic. cp 22:40 Eyes: Periorbital structures: appear normal, Conjunctiva: normal, no exudate, no injection, Sclera: no appreciated abnormality, Lids and lashes: appear normal, bilaterally, 22:40 ENT: External ear(s): are unremarkable, Nose: is normal, Mouth: Lips: moist, Oral mucosa: pink and intact, moist, Posterior pharynx: is normal, airway is patent, no erythema, no exudate, 22:40 Chest/axilla: Inspection: normal, 22:40 Cardiovascular: Rate: normal, Rhythm: regular, 22:40 Respiratory: the patient does not display signs of respiratory distress, Respirations: normal, no use of accessory muscles, no retractions, labored breathing, is not present, Breath sounds: are clear throughout, no decreased breath sounds, no stridor, no wheezing, 22:40 Abdomen/GI: Inspection: abdomen appears normal, Bowel sounds: active, all quadrants, Palpation: soft, in all quadrants, moderate abdominal tenderness, in the right upper quadrant, left upper quadrant and right lower quadrant, rebound tenderness, is not appreciated, involuntary guarding, is not appreciated, 22:40 Back: CVA tenderness, is absent, 22:40 Skin: no rash present. 22:40 Neuro: Orientation: to person, place \T\ time. Mentation: is normal, Vital Signs: 22:21 BP 130 / 75; Pulse 86; Resp 18; Temp 97.9; Pulse Ox 98% ; Weight 114.31 kg; Height 5 vc1 ft. 7 in. ; Pain 10/10; 12/09 00:00 BP 148 / 77; Pulse 76; Resp 16; Pulse Ox 99% on R/A; jb4 12/08 22:21 Body Mass Index 39.47 (114.31 kg, 170.18 cm) vc1 12/08 22:21 Pain Scale: Adult vc1 MDM: 12/08 22:05 Patient medically screened. cp 12/09 01:23 Data reviewed: vital signs, nurses notes, lab test result(s), radiologic studies, CT cp scan. 01:23 Differential diagnosis: appendicitis, bowel obstruction, gastritis, non-specific abd cp pain, pancreatitis, Ureterolithiasis, urinary tract infection. I considered the following discharge prescriptions or medication management in the emergency department Medications were administered in the Emergency Department. See MAR. Counseling: I had a detailed discussion with the patient and/or guardian regarding the historical points, exam findings, and any diagnostic results supporting the discharge/admit diagnosis, lab results, radiology results, to return to the emergency department if symptoms worsen or persist or if there are any questions or concerns that arise at home. Response to treatment: the patient's symptoms have markedly improved after treatment, and as a result, I will discharge patient. Special discussion: Based on the patient's Hx, exam, and Dx evaluation, there is no indication for emergent surgery or inpatient Tx. It is understood by the patient/guardian that if the Sx's persist or worsen they need to return immediately for re-evaluation. 12/08 22:27 Order name: Basic Metabolic Panel; Complete Time: 23:10 cp 12/08 23:10 Interpretation: Normal except: K 3.2; ANION GAP 16.2; GLUC 144; GFR 85. cp 12/08 22:27 Order name: CBC with Diff; Complete Time: 23:08 12/08 22:27 Order name: LFT's; Complete Time: 23:10 12/08 22:27 Order name: Magnesium; Complete Time: 23:10 cp 12/08 22:27 Order name: Troponin HS; Complete Time: 23:10 cp 12/08 22:27 Order name: Lipase; Complete Time: 23:10 cp 12/08 22:27 Order name: XRAY Chest (1 view) 12/08 23:16 Order name: CT Abd/Pelvis - IV Contrast Only cp 12/08 22:27 Order name: EKG; Complete Time: 22:27 cp 12/08 22:27 Order name: Cardiac monitoring; Complete Time: 22:32 cp 12/08 22:27 Order name: EKG - Nurse/Tech; Complete Time: 22:31 cp 12/08 22:27 Order name: IV Saline Lock; Complete Time: 22:39 cp 12/08 22:27 Order name: Labs collected and sent; Complete Time: 22:39 cp 12/08 22:27 Order name: O2 Per Protocol; Complete Time: 22:32 cp 12/08 22:27 Order name: O2 Sat Monitoring; Complete Time: 22:32 cp EC/03 22:22 Rate is 84 beats/min. Rhythm is regular. CT interval is normal. QRS interval is cp prolonged at 110 msec. QT interval is normal. T waves are Inverted in leads III, aVR. Interpreted by me. Reviewed by me. Administered Medications: 22:30 Drug: Pantoprazole IVP 40 mg IVP once Route: IVP; Site: right antecubital; la4 22:30 Drug: morphine IVP or IV 4 mg IVP once over 4 mins Route: IVP; Infused Over: 4 mins; la4 Site: right antecubital; 22:40 Drug: NS 0.9% IV 1000 ml IV at 1 bolus Per protocol; 1000 mL bolus Route: IV; Rate: 1 la4 bolus; Site: right antecubital; 23:13 Drug: metoCLOPramide IVP 10 mg IVP once; over 1 to 2 minutes Route: IVP; Site: right la4 antecubital; 12/09 01:30 Drug: Ciprofloxacin PO 500 mg PO once Route: PO; 01:30 Drug: metroNIDAZOLE PO 500 mg PO once Route: PO; 4 Disposition: 02:20 Co-signature as Attending Physician, Frandy Canela MD I reviewed the patient's care rt provided by the Advanced Practice Provider and agree with the diagnosis and treatment plan. Disposition Summary: 12/09/22 01:24 Discharge Ordered Notes: Location: Home cp Problem: new cp Symptoms: have improved cp Condition: Stable cp Diagnosis - Indeterminate colitis cp Followup: cp - With: Gareth Mancini MD - When: 2 - 3 days - Reason: Recheck today's complaints Discharge Instructions: - Discharge Summary Sheet cp - Colitis cp Forms: - Medication Reconciliation Form cp - Thank You Letter cp - Antibiotic Education cp - Prescription Opioid Use cp - Patient Portal Instructions cp - Leadership Thank You Letter cp - Family Work Release jb4 Prescriptions: - Zofran 4 mg Oral Tablet - take 1 tablet ORAL route every 12 hours As needed; 20 tablet; Refills: 0, cp Product Selection Permitted - Cipro 500 mg Oral Tablet - take 1 tablet ORAL route every 12 hours for 7 days; 14 tablet; Refills: 0, cp Product Selection Permitted - Metronidazole 500 mg Oral Tablet - take 1 tablet ORAL route every 8 hours; 30 tablet; Refills: 0, Product cp Selection Permitted - dicyclomine 20 mg Oral tablet - take 1 tablet ORAL route 4 times per day; 30 tablet; Refills: 0, Product cp Selection Permitted Signatures: Dispatcher [facility] Page, IlyaALEXANDRA lynn cp, James, RN RN jb4 Shannon Rojas RN RN vc1 Frandy Canela MD MD rt Andrews, La'Rea RN RN la4
--- NOTE | 2022-12-09 01:25 | ER ---
Nurse's Notes [facility] Name: Vish Valdivia Jr Age: 32 yrs Sex: Male : 1990 Arrival Date: 12/08/2022 Time: 21:37 Bed 4 Private MD: Diagnosis: Indeterminate colitis Presentation: 12/08 22:21 Chief complaint: Patient states: I was here three days ago for the same thing. I'm vc1 having abdominal pain, and chest pain that runs up from my stomach to my chest and I've been having trouble pooping its real hard and like tunde. Coronavirus screen: Vaccine status: Patient reports being unvaccinated. Client denies travel out of the [place] in the last 14 days. At this time, the client does not indicate any symptoms associated with coronavirus-19. Ebola Screen: Patient negative for fever greater than or equal to 101.5 degrees Fahrenheit, and additional compatible Ebola Virus Disease symptoms Patient denies exposure to infectious person. Patient denies travel to an Ebola-affected area in the 21 days before illness onset. No symptoms or risks identified at this time. Initial Sepsis Screen: Does the patient meet any 2 criteria? No. Patient's initial sepsis screen is negative. Does the patient have a suspected source of infection? No. Patient's initial sepsis screen is negative. Risk Assessment: Do you want to hurt yourself or someone else? Patient reports no desire to harm self or others. Onset of symptoms is unknown. 22:21 Method Of Arrival: Ambulatory vc1 22:21 Acuity: HIPOLITO 3 vc1 Triage Assessment: 22:24 General: Appears in no apparent distress. uncomfortable, Behavior is calm, cooperative, vc1 appropriate for age. Pain: Complains of pain in anterior aspect of right upper chest, anterior aspect of left upper chest, mid-sternal area, right upper quadrant and left lower quadrant Pain does not radiate. Pain currently is 9 out of 10 on a pain scale. Quality of pain is described as sharp. EENT: No deficits noted. No signs and/or symptoms were reported regarding the EENT system. Neuro: Level of Consciousness is awake, alert, obeys commands, Oriented to person, place, time, situation, Appropriate for age. Cardiovascular: Reports chest pain, Patient's skin is warm and dry. Chest pain is described as severe, quality is sharp, is located in right left anterior chest wall epigastric area. Respiratory: Airway is patent Respiratory effort is even, unlabored, Respiratory pattern is regular, symmetrical. GI: Reports lower abdominal pain, upper abdominal pain, constipation, cramping, Pain is 9 out of 10 on a pain scale. GI: Abdomen is round non-distended. : No deficits noted. No signs and/or symptoms were reported regarding the genitourinary system. Derm: No deficits noted. No signs and/or symptoms reported regarding the dermatologic system. Musculoskeletal: No deficits noted. No signs and/or symptoms reported regarding the musculoskeletal system. Historical: - Allergies: 22:24 No Known Allergies; vc1 - PMHx: 22:24 Back pain; Hypertension; vc1 - PSHx: 22:24 None; vc1 - Immunization history:: Client reports having NOT received the Covid vaccine. - Social history:: Smoking status: Patient/guardian denies using tobacco, Stopped _ months ago 1. Screenin:27 [facility] ED Fall Risk Assessment (Adult) History of falling in the last 3 months, vc1 including since admission No falls in past 3 months (0 pts) Confusion or Disorientation No (0 pts) Intoxicated or Sedated No (0 pts) Impaired Gait No (0 pts) Mobility Assist Device Used No (0 pt) Altered Elimination No (0 pt) Score/Fall Risk Level 0 - 2 = Low Risk Oriented to surroundings, Maintained a safe environment, Educated pt \T\ family on fall prevention, incl call for assistance when getting out of bed. Abuse screen: Denies threats or abuse. Nutritional screening: No deficits noted. Tuberculosis screening: No symptoms or risk factors identified. Assessment: 22:26 General: See triage assessment. vc1 12/09 00:00 Reassessment: Patient appears in no apparent distress at this time. Patient and/or jb4 family updated on plan of care and expected duration. Pain level reassessed. Patient is alert, oriented x 3, equal unlabored respirations, skin warm/dry/pink. 01:00 Reassessment: Patient appears in no apparent distress at this time. Patient and/or jb4 family updated on plan of care and expected duration. Pain level reassessed. Patient is alert, oriented x 3, equal unlabored respirations, skin warm/dry/pink. Vital Signs: 12/08 22:21 BP 130 / 75; Pulse 86; Resp 18; Temp 97.9; Pulse Ox 98% ; Weight 114.31 kg; Height 5 vc1 ft. 7 in. ; Pain 11/14; 12/09 00:00 BP 148 / 77; Pulse 76; Resp 16; Pulse Ox 99% on R/A; jb4 12/08 22:21 Body Mass Index 39.47 (114.31 kg, 170.18 cm) vc1 12/08 22:21 Pain Scale: Adult vc1 ED Course: 12/08 21:39 Patient arrived in ED. jj6 21:41 Ilya Cao PA is PHCP. cp 21:41 Frandy Canela MD is Attending Physician. cp 22:24 Triage completed. vc1 22:27 Arm band placed on right wrist. vc1 22:27 Patient has correct armband on for positive identification. Bed in low position. Call vc1 light in reach. Client placed on continuous cardiac and pulse oximetry monitoring. NIBP monitoring applied. 22:40 Initial lab(s) drawn, by me, sent to lab. Inserted saline lock: 20 gauge in right cm10 antecubital area, using aseptic technique. Blood collected. 22:40 Basic Metabolic Panel Sent. cm10 22:40 CBC with Diff Sent. cm10 22:40 LFT's Sent. cm10 22:40 Magnesium Sent. cm10 22:40 Troponin HS Sent. cm10 22:40 Lipase Sent. cm10 22:56 XRAY Chest (1 view) In Process Unspecified. EDMS 12/09 00:02 CT Abd/Pelvis - IV Contrast Only In Process Unspecified. EDMS 01:23 Gareth Mancini MD is Referral Physician. cp 01:45 No provider procedures requiring assistance completed. IV discontinued, intact, jb4 bleeding controlled, No redness/swelling at site. Pressure dressing applied. Administered Medications: 12/08 22:30 Drug: Pantoprazole IVP 40 mg IVP once Route: IVP; Site: right antecubital; la4 22:30 Drug: morphine IVP or IV 4 mg IVP once over 4 mins Route: IVP; Infused Over: 4 mins; la4 Site: right antecubital; 22:40 Drug: NS 0.9% IV 1000 ml IV at 1 bolus Per protocol; 1000 mL bolus Route: IV; Rate: 1 la4 bolus; Site: right antecubital; 23:13 Drug: metoCLOPramide IVP 10 mg IVP once; over 1 to 2 minutes Route: IVP; Site: right la4 antecubital; 12/09 01:30 Drug: Ciprofloxacin PO 500 mg PO once Route: PO; jb4 01:30 Drug: metroNIDAZOLE PO 500 mg PO once Route: PO; jb4 Medication: 12/08 22:28 VIS not applicable for this client. vc1 Outcome: 12/09 01:24 Discharge ordered by MD. cp 01:45 Discharged to home ambulatory, with family, jb4 01:45 Condition: stable 01:45 Discharge instructions given to patient, Instructed on discharge instructions, follow up and referral plans. medication usage, Demonstrated understanding of instructions, follow-up care, medications, Prescriptions given X 4, 01:45 Patient left the ED. jb4 Signatures: Dispatcher [employer] EDMS Ilya Cao PA PA cp Bryson, James, RN RN jb4 Edel Britton jj6 Shannon Rojas RN RN vc1 Cynthia Arroyo, RN RN cm10 Shana Keenan, RN RN la4
[2022-12-09] MEDS ORDERED: metroNIDAZOLE 500 MG TABLET ONE (01:39)
[2022-12-09] MEDS ORDERED: CIPROFLOXACIN HCL 500 MG TAB ONE (01:40)
[2022-12-09 01:52] VITALS: TEMP 97.9
[2022-12-09 01:54] VITALS: BP 148/77; O2SAT 99
--- NOTE | 2022-12-09 13:08 | RAD REPORT ---
EXAM DESCRIPTION: RAD - Chest Single View - 12/08/2022 10:54 pm CLINICAL HISTORY: 2 years Male, ABDOMINAL DISTENTION COMPARISON: Chest radiograph dated 12/05/2022 FINDINGS: No focal lung consolidation. No pleural effusion. No pneumothorax. Cardiomediastinal silhouette is within normal limits. No acute osseous abnormality. IMPRESSION: No acute cardiopulmonary disease. Electronically signed by: Colton Carrasquillo DO 12/08/2022 11:28 PM CDT Due to temporary technical issues with the PACS/Fluency reporting system, reports are being signed by the in house radiologists without review as a courtesy to insure prompt reporting. The interpreting radiologist is fully responsible for the content of the report.
--- NOTE | 2022-12-09 13:22 | RAD REPORT ---
EXAM DESCRIPTION: CT - Abdomen Pelvis W Contrast - 12/09/2022 6:28 am CLINICAL HISTORY: 32 years Male ABD PAIN TECHNIQUE: Axial CT imaging of the abdomen and pelvis was performed following the administration of intravenous contrast.. Oral contrast was not administered. Sagittal and coronal reconstructed image s were then performed. The CT study is performed according to ALARA (as low as reasonably achievabl e) or ALARA/IMAGE GENTLY, with automatic adjustment of mA and/or kV according to patient size. Performed on: 12/08/2022 at 11:56 PM. COMPARISON: CT abdomen and pelvis with contrast performed on 11/03/2022 FINDINGS: Lung bases: The lung bases are clear. The heart is normal in size. Liver: The liver is top normal in size. No focal hepatic abnormalities are identified. Liver attenuat ion is within normal limits. The hepatic and portal veins are patent. Spleen: The spleen is normal in size, configuration and attenuation. Gallbladder and bile duct: The gallbladder is well distended and unremarkable. There is no biliary ductal dilatation. Pancreas: The pancreas is grossly normal in size and configuration. Adrenal Glands: The adrenal glands are normal in size and configuration. Kidneys: The kidneys are normal in size and configuration. There is no evidence of hydronephrosis. Th ere is no evidence of nephrolithiasis. No definite solid or cystic renal mass lesions are identified. Stomach: The stomach is grossly normal. There is no definite hiatal hernia. Bowel: The bowel gas pattern is non specific and non obstructive. There is mild nonspecific colonic w all thickening along the descending portion of the colon and sigmoid colon. Inflammatory bowel diseas e is not excluded. Appendix: The appendix is normal. Free air: There is no evidence of free air. Free fluid: There is no evidence of free fluid. Vasculature: The aorta is normal in caliber and contour. The inferior vena cava is grossly unremarkab le. Lymphadenopathy: No pathologic lymphadenopathy is identified. Bladder: The bladder is incompletely distended on this examination. Reproductive: The prostate gland is grossly within normal limits. Bones: No acute osseous abnormalities are identified. Soft tissues: No acute soft tissue abnormalities are identified. There is a small stable fat-containi ng right inguinal hernia. IMPRESSION: 1. Mild nonspecific colonic wall thickening along the descending portion of the colon and sigmoid colon. Inflammatory bowel disease is not excluded. 2. Otherwise, no evidence of acute intra-abdominal or intrapelvic pathology. Electronically signed by: Machelle Sandhu DO 12/09/2022 12:46 AM CDT Due to temporary technical issues with the PACS/Fluency reporting system, reports are being signed by the in house radiologists without review as a courtesy to insure prompt reporting. The interpreting radiologist is fully responsible for the content of the report.
--- NOTE | 2022-12-16 14:42 | EKG ---
Test Date: 2022-12-08 Test Time: 22:15:49 [employer]: LB MEASUREMENT RESULTS: Intervals: Rate: 84 IL: 144 QRSD: 110 QT: 374 QTc: 441 [place]: P: 47 IL: 144 QRS: 31 T: 12 INTERPRETIVE STATEMENTS: Normal sinus rhythm Incomplete right bundle branch block Borderline ECG Compared to ECG 12/05/2022 17:06:11 Incomplete right bundle-branch block now present Electronically Signed On 12-16-22 14:20:55 PROGRESS CLERK by Samuel Ashraf
== END 2022-12-09 01:45 | disposition home or self-care (01) ==
LOC: ER 21:37
DX: K52.3 Indeterminate colitis (principal); I10 Essential (primary) hypertension
CPT/HCPCS: 93005; 85025; 80048; 36415; 83735; 80076; 84484; 83690; 74177; 71045; 96375; 96374; 99284; Q9967; J2765; C9113; J7030

== ENCOUNTER 2022-12-27 20:33 | Emergency (ER) | payer OTHER ==
--- OUTSIDE RECORDS SUMMARY | 2022-12-27 20:38 | XMS REPORT | Continuity of Care Document ---
:1990 Author Organization [facility] t Address [address] [place] [address] [address] [place] [address] Care Team Providers Name Role Phone PCP, PATIENT DOES NOT HAVE A Primary Care Physician Unavaila SHADE Crabtree Attending Clinician Unavailable Shade Reed MD Attending Clinician MURRAY URIOSTEGUI Attending Clinician Unavailable Murray Hooper Attending Clinician Doctor Unassigned, [place] Attending Clinician Unavailable SRIDHAR MARROQUIN Attending Clinician Unavailable SHADE REED Admitting Clinician Unavailable MURRAY URIOSTEGUI Admitting Clinician Unavailable Payers Payer Name Policy Type Policy Number Effective Date Expiration Date S debi [employer] [id number] 2022 OUT OF NETWORK 00:00:00 Problems Condition Condition Condition Status Onset Resolution Last Treating Co mments Source Name Details Category Date Date Treatment Clinician Date No known No known Disease Unive rs active active ity of problems problems [facility] Allergies, Adverse Reactions, Alerts Allergy Allergy Status Severity Reaction(s) Onset Inactive Treating Comm ents Source Name Type Date Date Clinician NO KNOWN Drug Active Univers ALLERGIE Class ity of S [facility] Social History Social Habit Start Date Stop Date Quantity Comments Source Gender identity [facility] Sexual orientation [facility] [place] [facility] Exposure to 2022-04-29 2022-05-09 Not sure [facility] SARS-CoV-2 (event) 00:00:00 16:06:00 [facility] Sex Assigned At [birth year] Uni versity [facility] 00:00:00 00:00:00 Medical Branch Smoking Status Start Date Stop Date Source [facility] consumption [facility] Medications Ordered Filled Start Stop Current Ordering Indication Dosage Frequency Signature Comments Components Source Medication Medication Date Date Medication? Clinician (SIG) Name Name iohexol 2022-02- No [id number] 75mL 75 mL, Un vielka (OMNIPAQUE 02-11 Intravenou it y of 350 04:15: 04:15 s, ONCE, 1 [place] BULK-500 00 :00 dose, On Medical mL) [facility] injection 12/11/22 at 75 mL 2215, Routine ketorolac 2022-02 No 30mg 30 mg, Unive rs (TORADOL) 02-11 Slow IV ity of injection 04:00: 02:57 Push, [place] 30 mg 00 :00 ONCE, 1 Medical dose, On Branch 12/11/22 at 2200, Routine ondansetron 2022- No 4mg 4 mg, Univ ers (ZOFRAN-ODT 05-10 Oral, ity of ) 01:15: 00:44 ONCE, 1 [place] disintegrat 00 :00 dose, On Medi garrett ing tablet Sun05/09/22 Bra nch 4 mg at 2015, DAYLIN NaCl 0.9% 2022- No 1000mL at 999 Uni vers (NS) bolus 05-10-05 mL/hr, ity of infusion 00:45: 01:53 1,000 mL, Abraham as 1,000 mL 00 :00 IV Medical Infusion, Branch ONCE, 1 dose, On Sun05/09/22 at 1945, DAYLIN dicyclomine 2022- No 20mg 20 mg, Uni vers (BENTYL) 05-10 04-05 Oral, ity of tablet 20 00:30: 00:44 ONCE, 1 [place] mg 00 :00 dose, On Medical Sun05/09/22 Branch at 1930, DAYLIN iopamidol 2022- No [id number] 75mL 75 mL, Univers (ISOVUE 05-09 Intravenou ity o f 370-500 mL) 22:52: 22:52 s, ONCE, 1 [place] injection 00 :00 dose, On Medica l 75 mL Sun05/09/22 Branch at 1815, Routine proMETHazin No 12.5mg 12.5 mg, Univers e 05-09 IV ity of (PHENERGAN) 22:30: 22:35 Piggyback, [place] 12.5 mg in 00 :00 ONCE, 1 Medica l NaCl 0.9% dose, On Branch (NS) 50 mL Sun05/09/22 IV at 1730, piggyback DAYLIN NaCl 0.9% 2022- No 1000mL at 999 Uni vers (NS) bolus 05-09 mL/hr, ity of infusion 22:15: 00:03 1,000 [...] No 4mg 4 mg, Slow Univers (ZOFRAN 05-09 IV Push, ity of (PF)) 21:30: 21:24 ONCE, 1 [place] injection 4 00 :00 dose, On Medi garrett mg Sun05/09/22 Branch at 1630, DAYLIN dicyclomine Yes [id number] 20mg Take 1 Univers 20 mg 4-04 tablet by ity of tablet 00:00: mouth 4 [place] 00 (four) Medical times Branch daily as needed for Abdominal pain. ondansetron Yes [id number] 4mg Take 1 Univers 4 mg 4-04 tablet by ity of disintegrat 00:00: mouth [place] ing tablet 00 every 8 Medica l (eight) Branch hours as needed for Nausea and Vomiting (N/V). dicyclomine Yes [id number] 20mg Take 1 Univers 20 mg 4-04 tablet by ity of tablet 00:00: mouth 4 [place] 00 (four) Medical times Branch daily as needed for Abdominal pain. ondansetron Yes [id number] 4mg Take 1 Univers 4 mg 4-04 tablet by ity of disintegrat 00:00: mouth [place] ing tablet 00 every 8 Medica l (eight) Branch hours as needed for Nausea and Vomiting (N/V). dicyclomine Yes [id number] 20mg Take 1 Univers 20 mg 4-04 tablet by ity of tablet 00:00: mouth 4 [place] 00 (four) Medical times Branch daily as needed for Abdominal pain. ondansetron Yes [id number] 4mg Take 1 Univers 4 mg 4-04 tablet by ity of disintegrat 00:00: mouth [place] ing tablet 00 every 8 Medica l (eight) Branch hours as needed for Nausea and Vomiting (N/V). doxycycline No 100mg 100 mg, U nivers hyclate [...] 10/30/20 at 0100, Routine iohexol 2020- No [id number] 120mL 120 mL, Univers (OMNIPAQUE 10-30 [id number] Intravenou ity of 350 04:15: 04:06 s, ONCE, 1 [place] BULK-100 00 :00 dose, On Medical mL) Fri Branch injection 10/29/20 at 120 mL 2315, Routine ketorolac 2020- No 30mg 30 mg, Unive rs (TORADOL) 10-30 Slow IV ity of injection 03:30: 02:32 Push, [place] 30 mg 00 :00 ONCE, 1 Medical dose, On Branch 10/29/20 at 2230, Routine
[employer] team member approving Restricted medication : SHADE REED traMADoL 2020-0 Yes [id number] 50mg Take 1 Univers (ULTRAM) 50 9-24 tablet by ity of mg tablet 00:00: mouth [place] 00 every 6 Medical (six) Branch hours as needed for Pain (scale 7-10). Indication s: acute pain doxycycline 2020-0 Yes [id number] 100mg Take 1 Univers hyclate 100 9-24 capsule by it y of mg capsule 00:00: mouth 2 [place] 00 (two) Medical times Branch daily. traMADoL 2020- Yes [id number] 50mg Take 1 Univers (ULTRAM) 50 9-24 tablet by ity of mg tablet 00:00: mouth [place] 00 every 6 Medical (six) Branch hours as needed for Pain (scale 7-10). Indication s: acute pain doxycycline 0 Yes [id number] 100mg Take 1 Univers hyclate 100 9-24 capsule by it y of mg capsule 00:00: mouth 2 [place] 00 (two) Medical times Branch daily. traMADoL 2020-0 Yes [id number] 50mg Take 1 Univers (ULTRAM) 50 9-24 tablet by ity of mg tablet 00:00: mouth [place] 00 every 6 Medical (six) Branch hours as needed for Pain (scale 7-10). Indication s: acute pain doxycycline 2020-0 Yes [id number] 100mg Take 1 Univers hyclate 100 9-24 capsule by it y of mg capsule 00:00: mouth 2 [place] 00 (two) Medical times Branch daily. traMADoL 2020-0 Yes [id number] 50mg Take 1 Univers (ULTRAM) 50 9-24 tablet by ity of mg tablet 00:00: mouth [place] 00 every 6 Medical (six) Branch hours as needed for Pain (scale 7-10). Indication s: acute pain doxycycline 2020-0 Yes [id number] 100mg Take 1 Univers hyclate 100 9-24 capsule by it y of mg capsule 00:00: mouth 2 [place] 00 (two) Medical times Branch daily. traMADoL Yes [id number] 50mg Take 1 Univers (ULTRAM) 50 9-24 tablet by ity of mg tablet 00:00: mouth [place] 00 every 6 Medical (six) Branch hours as needed for Pain (scale 7-10). Indication s: acute pain doxycycline Yes [id number] 100mg Take 1 Univers hyclate 100 9-24 capsule by it y of mg capsule 00:00: mouth 2 [place] 00 (two) Medical times Branch daily. Vital Signs Vital Name Observation Time Observation Value Comments Source Systolic blood 2022-12-12 05:00:00 126 mm[Hg] Univer sity [facility] Diastolic blood 2022-12-12 05:00:00 64 mm[Hg] Unive [facility] Heart rate 2022-12-12 05:00:00 77 /min [facility] Respiratory rate 2022-12-12 05:00:00 16 /min [facility] Oxygen saturation in 2022-12-12 05:00:00 98 /min [place] of Arterial blood by [place] [employer] Pulse oximetry Branch Body temperature 2022-12-12 00:48:00 36.72 Marichuy [facility] Body height 2022-12-12 00:48:00 170.2 cm [facility] Body weight 2022-12-12 00:48:00 114.306 kg [facility] BMI 2022-12-12 00:48:00 39.47 kg/m2 [facility] Oxygen saturation in 2022-05-10 01:50:00 100 /min [facility] Arterial blood by [place] [employer] garrett Pulse oximetry Branch Heart rate 2022-05-10 01:50:00 78 /min [facility] Respiratory rate 2022-05-10 01:50:00 15 /min [facility] Systolic blood 2022-05-10 01:00:00 132 mm[Hg] Univer sity [facility] Diastolic blood 2022-05-10 01:00:00 64 mm[Hg] Unive [facility] Body temperature 2022-05-09 21:26:00 35.94 Marichuy [facility] Body height 2022-05-09 21:05:00 [facility]7 [facility] Body weight 2022-05-09 21:05:00 106.595 kg [facility] BMI 2022-05-09 21:05:00 35.73 kg/m2 [facility] Systolic blood 2020-10-30 05:24:00 130 mm[Hg] [facility] Diastolic blood 2020-10-30 05:24:00 81 mm[Hg] [facility] Heart rate 2020-10-30 05:24:00 67 /min [facility] Respiratory rate 2020-10-30 05:24:00 16 /min [facility] Oxygen saturation in 2020-10-30 05:24:00 100 /min [facility] Arterial blood by [facility] Pulse oximetry [place] Body temperature 2020-10-30 01:57:26 36.28 Marichuy [facility] Body height 2020-10-30 01:55:00 170.2 cm [facility] Body weight 2020-10-30 01:55:00 108.863 kg [facility] BMI 2020-10-30 01:55:00 37.59 kg/m2 [facility] Procedures Procedure Date / Time Performing Clinician Source Performed CT THORAX W CONTRAST 2022-12-12 03:17:39 Shade Reed [facility] XR CHEST 1 VW 2022-12-12 01:42:55 Shade Reed [facility] LIPASE 2022-12-12 01:34:00 Shade Reed [facility] TROPONIN I 2022-12-12 01:34:00 Shade Reed [facility] COMP. METABOLIC PANEL 2022-12-12 01:34:00 Shade Reed [facility] ([id number]) [facility] CBC WITH DIFF 2022-12-12 01:34:00 Shade Reed [facility] D-DIMER 2022-12-12 01:34:00 Shade Reed [facility] CONSENT/REFUSAL FOR 2022-12-12 00:26:37 Doctor Unassigned, No [facility] [place] [facility] Name Medical Branch CONSENT/REFUSAL FOR 2022-10-17 01:16:23 Doctor Unassigned, No [facility] [place] [facility] TREATMENT Name [facility] CT ABDOMEN PELVIS W 2022-05-09 23:02:00 Murray Uriostegui [facility] URINALYSIS 2022-05-09 22:42[facility]00 [facility]IMMUNOASSAY) 2022-05-09 22:42:00 [facility] nch SCREEN W/O REFLEX LIPASE 2022-05-09 21:21:00 Murray Uriostegui [facility] TROPONIN I 2022-05-09 21:21:00 [facility]. METABOLIC PANEL 2022-05-09 21:21:00 Murray Uriostegui [facility] ([id number]) [facility] CBC WITH DIFF 2022-05-09 21:21:00 Murray Uriostegui [facility] NOTICE OF PRIVACY 2022-05-09 21:02:32 Doctor Unassigned, No [facility] [place] [facility] PRACTICES [facility] CONSENT/REFUSAL FOR 2022-05-09 20:59:14 Doctor Unassigned, No [facility] [place] [facility] ABDOMEN PELVIS W 2020-10-30 04:09:51 Shade Reed [facility] US SCROTUM AND CONTENTS 2020-10-30 03:24:00 Shade Reed [facility] COMP. METABOLIC PANEL 2020-10-30 02:31:00 Shade Reed [facility] ([id number]) [facility] CBC WITH DIFF 2020-10-30 02:31:00 Shade Reed [facility] URINALYSIS 2020-10-30 02:31:00 Shade Reed [facility] CONSENT/REFUSAL FOR 2020-10-30 01:46:01 Doctor Unassigned, No Un [facility] DIAGNOSIS AND TREATMENT Name Medical Branch Encounters Start End Encounter Admission Attending Care Care Encounter Source Date/Time Date/Time Type Type Clinicians Facility Department ID 2022-12-11 2022-12-11 [facility] [id number] Univers 18:52:00 23:17:00 SHADE ity [facility] 2022-12-11 2022-12-11 Emergency [facility] [id number] Univers 18:52:00 23:17:00 Shade ALICEACORNEL 350.1.13.10 ity of [place] 4.2.7.2.686 [facility] [id number] [address] 2022-10-16 2022-10-16 Emergency X [facility] ERT [id number] Univers 20:34:00 20:35:00 ity [facility] 2022-10-16 2022-10-16 Emergency [facility] [id number] Univers 20:34:00 20:35:00 ANGLECORNEL 350.1.13.10 i ty of [place] 4.2.7.2.6 [facility] [id number] [address] 2022-05-09 2022-05-09 Emergency X [facility] ERT [id number] Univers 16:12:00 20:56:00 MURRAY ity [facility] 2022-05-09 2022-05-09 Emergency [facility] [id number] Univers 16:12:00 20:56:00 Murray DILCIA 350.1.13.10 i ty of [place] 4.2.7.2.686 [facility] [id number] [address] 2022-05-09 2022-05-09 Orders Doctor GUTIERREZ [id number] Univers 00:00:00 00:00:00 Only Unassigned, DEUCE 350.1.13.[address] [place] [facility] 4.2.7.2.686 [facility] [id number] [facility] 009 Branch 2020-10-29 2020-10-30 Emergency [facility] [id number] Univers 20:48:00 00:26:00 Shade Onofre Baker 350.1.13.10 ity [facility] 4.2.7.2.686 [facility] [id number] [facility] 084 Branch 2020-10-29 2020-10-30 Emergency X DEREK [facility] ERT [id number] Univers 20:48:00 00:26:00 [facility] 2019-05-22 2019-05-22 Emergency E AZNAUROVA-A MHBL MHBL [id number] BL 18:33:00 20:18:00 SRIDHAR TRAN Results Test Description Test Time Test Comments Results Result Comments Source TROPONIN I 2022-12-12 02:15:02 Test Item Value Reference Range Interpretation Comme nts TROPONIN I (test code = 6143888014) 0.003 ng/mL <=0.034 RASHAUN (test code = RASHAUN) [...] biotin. Lab Interpretation (test code = Normal 87920-5) [facility] ([id number])2022-12-12 02:03:36 Test Item Value Reference Range Interpretation Comments NA (test code = 137 mmol/L 135-145 9324493507) K (test code = 3.7 mmol/L 3.5-5.0 3933811141) CL (test code = 101 mmol/L 98-108 7147755819) CO2 TOTAL (test code = 22 mmol/L 23-31 L 3167266206) AGAP (test code = 14 2-16 7703314416) BUN (test code = 15 mg/dL 7-23 0953091965) GLUCOSE (test code = 112 mg/dL 70-110 H 8979020367) CREATININE (test code = 0.96 mg/dL 0.60-1.25 1645030083) TOTAL BILI (test code = 0.5 mg/dL 0.1-1.0 6012235021) CALCIUM (test code = 10.3 mg/dL 8.6-10.6 6127920457) T PROTEIN (test code = 8.7 g/dL 6.3-8.2 H 7584534788) ALBUMIN (test code = 5.4 g/dL 3.5-5.0 H 8557013332) ALK PHOS (test code = 87 U/L 34-122 8810357340) ALTv (test code = 47 U/L 5-50 1742-6) AST(SGOT) (test code = 36 U/L 13-40 6018332730) eGFR (test code = 107.7 mL/min/1.73m2 CKD-EPI e GFR 77619-7) (2020). Assumin g creatinine has been stable day-to-d ay for at least th ree months, the eGF R indicates Categ ory G1 (>= 90 mL/min/1.73 m2) Lab Interpretation (test Abnormal code = 08056-5) [place] [facility] 02:03:36 Test Item Value Reference Range Interpretation Comments LIPASE (test code = 6619559351) 238 U/L 0-220 H Lab Interpretation (test code = Abnormal 50887-8) [place] [facility][id number] 02:02:50 Test Item Value Reference Interpretation Comments Range D-DIMER (test code = See_Comment [Autom ated 5256994710) message] The system which generated this result transmitted reference range : <0.41 ?g/mL (FEU). The reference range was not used to interpret this result as normal/abnormal . RASHAUN (test code = This test may be RASHAUN) used in conjunction with a clinical pretest probability (PTP) assessment model to exclude venous thromboembolism (VTE) in patients suspected of deep venous thrombosis (DVT) and pulmonary embolism (PE) A D-Dimer value less than 0.50 ?g/ml (FEU) has a negative predicative value of 96 to 100% (95% CI)and 97 to 100% (95% CI) as an aid in the diagnosis of deep vein thrombosis (DVT) and pulmonary embolism when there is low or moderate pretest probability of PE or DVT. D-Dimer values are expressed in initial fibrinogen equivalent units (FEU)" The assay results should be used with other information, including the clinical context, in forming a diagnosis. Lab Interpretation Normal (test code = 09155-2) [facility] WITH [id number] 01:51:36 Test Item Value Reference Range Interpretation Comments WBC (test code = 10.32 See_Comment [Automated 6963-2) message] The sy stem which generated this result transmitted reference range : 4.20 - 10.70 10*3/?L. The reference range was not used to interpret this result as normal/abnormal . RBC (test code = 5.22 See_Comment [Automated 066-8) message] The sy stem which generated this result transmitted reference range : 4.26 - 5.52 10*6/?L. The reference range was not used to interpret this result as normal/abnormal . HGB (test code = 15.6 g/dL 12.2-16.4 718-7) HCT (test code = 44.0 % 38.4-49.3 4544-3) MCV (test code = 84.3 fL 81.7-95.6 787-2) MCH (test code = 29.9 pg 26.1-32.7 785-6) MCHC (test code = 35.5 g/dL 31.2-35.0 H 786-4) RDW-SD (test code = 41.5 fL 38.5-51.6 00345-1) RDW-CV (test code = 13.4 % 12.1-15.4 788-0) PLT (test code = 293 See_Comment [Automated 607-3) message] The sy stem which generated this result transmitted reference range : 150 - 328 10*3/ ?L. The reference r jammie was not used to interpret this result as normal/abnormal . MPV (test code = 11.1 fL 9.8-13.0 58717-4) NRBC/100 WBC (test 0.0 See_Comment [Automat ed code = 2123511885) message] The system which generated this result transmitted reference range : 0.0 - 10.0 /100 WBCs. The refer ence range was not u sed to interpret th is result as normal/abnormal . NRBC x10^3 (test code See_Comment [Auto mated = 4192024967) message] The s ystem which generated this result transmitted reference range : 10*3/?L. The reference range was not used to interpret this result as normal/abnormal . GRAN MAT (NEUT) % 70.3 % (test code = 770-8) IMM GRAN % (test code 0.30 % = 8093710961) LYMPH % (test code = 17.8 % 736-9) MONO % (test code = 8.6 % 5905-5) EOS % (test code = 2.1 % 713-8) BASO % (test code = 0.9 % 706-2) GRAN MAT x10^3(ANC) 7.25 10*3/uL 1.99-6.95 H (test code = 7269748858) IMM GRAN x10^3 (test 0.03 10*3/uL 0.00-0.06 code = 4615349133) LYMPH x10^3 (test code 1.84 10*3/uL 1.09-3.23 = 731-0) MONO x10^3 (test code 0.89 10*3/uL 0.36-1.02 = 742-7) EOS x10^3 (test code = 0.22 10*3/uL 0.06-0.53 711-2) BASO x10^3 (test code 0.09 10*3/uL 0.01-0.09 = 704-7) Lab Interpretation Abnormal (test code = 66131-4) [place] [facility] [id number] 22:15:45 Test Item Value Reference Range Interpretation Comments TROPONIN I (test code = 0.001 ng/mL <=0.034 0230928430) RASHAUN (test code = RASHAUN) Reference (Normal) [...] to patient's use of biotin. Lab Interpretation Normal (test code = 92665-3) [facility]. METABOLIC PANEL ([id number])2022-05-09 21:58:56 Test Item Value Reference Range Interpretation Comments NA (test code = 138 mmol/L 135-145 8885718114) K (test code = 4.3 mmol/L 3.5-5.0 6923644483) CL (test code = 103 mmol/L 98-108 9540992048) CO2 TOTAL (test code = 18 mmol/L 23-31 L 8050338230) AGAP (test code = 17 2-16 H 0082833292) BUN (test code = 15 mg/dL 7-23 9596432557) GLUCOSE (test code = 136 mg/dL 70-110 H 0496491317) CREATININE (test code = 0.83 mg/dL 0.60-1.25 7751317251) TOTAL BILI (test code = 0.8 mg/dL 0.1-1.7 7885446536) CALCIUM (test code = 10.7 mg/dL 8.6-10.6 H 1102638539) T PROTEIN (test code = 9.2 g/dL 6.3-8.2 H 3873728080) ALBUMIN (test code = 5.5 g/dL 3.5-5.0 H 0722358970) ALK PHOS (test code = 83 U/L 34-122 7931549236) ALTv (test code = 27 U/L 5-50 1742-6) AST(SGOT) (test code = 28 U/L 13-40 8561736388) eGFR (test code = 107.4 mL/min/1.73m2 7115501568) RASHAUN (test code = RASHAUN) Association of [...] tests). Lab Interpretation Abnormal (test code = 80142-5) [place] [facility] 21:58:41 Test Item Value Reference Range Interpretation Comments LIPASE (test code = 8687634678) 123 U/L 0-220 Lab Interpretation (test code = Normal 33450-7) [facility] [id number] 21:46:56 Test Item Value Reference Range Interpretation Comments WBC (test code = 16.34 See_Comment H [Automated 4107-2) message] The system which generated this result transmit kevin reference range : 4.20 - 10.70 10*3/?L. The reference range was not used to interpret this result as normal/abnormal . RBC (test code = 5.74 See_Comment H [Automated 479-8) message] The system which generated this result [...] RDW-SD (test code = 40.4 fL 38.5-51.6 57925-9) RDW-CV (test code = 13.4 % 12.1-15.4 788-0) PLT (test code = 333 See_Comment H [Automated 777-3) message] The system which generated this result transmit kevin reference range : 150 - 328 10*3/ ?L. The reference range was not u sed to interpret th is result as normal/abnormal . MPV (test code = 11.6 fL 9.8-13.0 71694-7) NRBC/100 WBC (test 0.0 See_Comment [Automat ed code = 1222998693) message] The system which generated this result transmit kevin reference range : 0.0 - 10.0 /100 WBCs. The reference range was not used to interpret this result as normal/abnormal . NRBC x10^3 (test code See_Comment [Auto mated = 7307490095) message] The system which generated this result transmit kevin reference range : 10*3/?L. The reference range was not used to interpret this result as normal/abnormal . GRAN MAT (NEUT) % 79.8 % (test code = 770-8) IMM GRAN % (test code 0.50 % = 6311184845) LYMPH % (test code = 15.2 % 736-9) MONO % (test code = 3.4 % 5905-5) EOS % (test code = 0.4 % 713-8) BASO % (test code = 0.7 % 706-2) GRAN MAT x10^3(ANC) 13.04 10*3/uL 1.99-6.95 H (test code = 6544915361) IMM GRAN x10^3 (test 0.08 10*3/uL 0.00-0.06 H code = 2194421469) LYMPH x10^3 (test code 2.48 10*3/uL 1.09-3.23 = 731-0) MONO x10^3 (test code 0.56 10*3/uL 0.36-1.02 = 742-7) EOS x10^3 (test code = 0.07 10*3/uL 0.06-0.53 711-2) BASO x10^3 (test code 0.11 10*3/uL 0.01-0.09 H = 704-7) Lab Interpretation Abnormal (test code = 47844-7) [facility]. METABOLIC PANEL ([id number])2020-10-30 02:58:42 Test Item Value Reference Range Interpretation Comments NA (test code = 137 mmol/L 135-145 1115147339) K (test code = 4.0 mmol/L 3.5-5.0 9427214659) CL (test code = 102 mmol/L 98-108 8752777244) CO2 TOTAL (test code = 21 mmol/L 23-31 L 7508096407) AGAP (test code = 2-16 3076441147) BUN (test code = 12 mg/dL 7-23 2002011216) GLUCOSE (test code = 113 mg/dL 70-110 H 2774391003) CREATININE (test code = 0.92 mg/dL 0.60-1.25 4376001985) TOTAL BILI (test code = 1.0 mg/dL 0.1-1.8 1361738967) CALCIUM (test code = 10.4 mg/dL 8.6-10.6 9236941243) T PROTEIN (test code = 8.6 g/dL 6.3-8.2 H 6348269695) ALBUMIN (test code = 5.3 g/dL 3.5-5.0 H 8089461672) ALK PHOS (test code = 86 U/L 34-122 9863555078) ALTv (test code = 23 U/L 5-50 1742-6) AST(SGOT) (test code = 29 U/L 13-40 3590415472) eGFR (test code = mL/min/1.73m2 2602442741) RASHAUN (test code = RASHAUN) Association of [...] tests). Lab Interpretation Abnormal (test code = 00635-3) [facility] WITH [id number] 02:44:58 Test Item Value Reference Range Interpretation Comments WBC (test code = See_Comment H [Automated 1602-2) message] The sy stem which generated this result transmitted reference range : 4.20 - 10.70 10*3/?L. The reference range was not used to interpret this result as normal/abnormal . RBC (test code = See_Comment [Automated 060-0) message] The sy stem which generated this [...] RDW-SD (test code = 41.8 fL 38.5-51.6 58614-4) RDW-CV (test code = 13.3 % 12.1-15.4 788-0) PLT (test code = See_Comment [Automated 777-3) message] The sy stem which generated this result transmitted reference range : 150 - 328 10*3/ ?L. The reference r jammie was not used to interpret this result as normal/abnormal . MPV (test code = 11.3 fL 9.8-13.0 81127-7) NRBC/100 WBC (test See_Comment [Automat ed code = [id number]) message] The system which generated this result transmitted reference range : 0.0 - 10.0 /100 WBCs. The refer ence range was not u sed to interpret th is result as normal/abnormal . NRBC x10^3 (test code <0.01 See_Comment [Auto mated = [id number]) message] The s ystem which generated this result transmitted reference range : 10*3/?L. The reference range was not used to interpret this result as normal/abnormal . GRAN MAT (NEUT) % 65.2 % (test code = 770-8) IMM GRAN % (test code 0.30 % = 8628974789) LYMPH % (test code = 25.4 % 736-9) MONO % (test code = 6.5 % 5905-5) EOS % (test code = 1.9 % 713-8) BASO % (test code = 0.7 % 706-2) GRAN MAT x10^3(ANC) 7.12 10*3/uL 1.99-6.95 H (test code = 0046937213) IMM GRAN x10^3 (test 0.03 10*3/uL 0.00-0.06 code = 1715586869) LYMPH x10^3 (test code 2.78 10*3/uL 1.09-3.23 = 731-0) MONO x10^3 (test code 0.71 10*3/uL 0.36-1.02 = 742-7) EOS x10^3 (test code = 0.21 10*3/uL 0.06-0.53 711-2) BASO x10^3 (test code 0.08 10*3/uL 0.01-0.09 = 704-7) Lab Interpretation Abnormal (test code = 57690-1) [facility] Notes Date/Time Note Provider Source 2022-10-16 20:34:26 [id number]:34:26Formatting of Margo arzola RN [facility] this note might be different from the original.Attempted to call patient from gopal, per registration pt left facility [id number] department [id number]:34:40Emergency department [id number] for patient [id number] E Linkes [address] Ww[id number]
--- NOTE | 2022-12-27 22:03 | RAD REPORT ---
EXAM DESCRIPTION: US - Abdomen Exam Limited - 12/27/2022 9:51 pm CLINICAL HISTORY: ABD PAIN COMPARISON: Abdomen Pelvis W Contrast dated 12/08/2022 FINDINGS: The gallbladder demonstrates no gallstones. No pericholecystic fluid or gallbladder wall t hickening. The common bile duct is normal. The liver demonstrates no findings of intrahepatic biliary dilatation. IMPRESSION: Unremarkable examination.
[2022-12-27] MEDS ORDERED: FAMOTIDINE 20 MG/2 ML VIAL IV ONE (22:17)
[2022-12-27] MEDS ORDERED: NA CHLORIDE 0.9% 1,000 ML ONE (22:17)
[2022-12-27] MEDS ORDERED: KETOROLAC 30 MG/ML INJ ONE (22:17)
[2022-12-27 22:23] LABS: Absolute Lymphocytes (CBC) 2.6 K/uL (0.7-4.9); Hematocrit 46.1 % (39.6-49.0); Lymphocytes % 25.2 % (15.3-44.8); MCV 86.2 fL (80-100); MPV 8.7 fL (7.6-11.3); Platelets 318 thou/uL (152-406); RBC Red Blood Cell Count 5.35 M/uL (4.33-5.43)
[2022-12-27 22:41] LABS: Albumin 4.1 g/dL (3.4-5.0); Bilirubin Total 0.3 mg/dL (0.2-1.0); Potassium 3.7 mEq/L (3.5-5.1); Protein, Total 8.4 g/dL (6.4-8.2)
--- NOTE | 2022-12-27 23:39 | ER ---
Nurse's Notes [facility] Name: Vish Valdivia Jr Age: 32 yrs Sex: Male : 1990 Arrival Date: 12/27/2022 Time: 20:33 Bed 8 Private MD: Diagnosis: Upper abdominal pain, unspecified Presentation: 12/27 20:40 Chief complaint: Patient states: diagnosed with cholelithiasis 2-3 weeks ago in the ER, rv got appointment coming up on the jan 08 with GI, but in the last two days, pain has been getting worse, denies vomiting/diarrhea. eating and drinking normally. Coronavirus screen: At this time, the client does not indicate any symptoms associated with coronavirus-19. Ebola Screen: No symptoms or risks identified at this time. Initial Sepsis Screen: Does the patient meet any 2 criteria? No. Patient's initial sepsis screen is negative. Does the patient have a suspected source of infection? No. Patient's initial sepsis screen is negative. Risk Assessment: Do you want to hurt yourself or someone else? Patient reports no desire to harm self or others. Onset of symptoms was December 27, 2022. 20:40 Method Of Arrival: Ambulatory rv 20:40 Acuity: HIPOLITO 3 rv Triage Assessment: 20:42 General: Appears uncomfortable, Behavior is calm, cooperative. Pain: Complains of pain rv in abdomen. Neuro: Level of Consciousness is awake, alert, obeys commands, Oriented to person, place, time, situation. Cardiovascular: Capillary refill < 3 seconds Patient's skin is warm and dry. Respiratory: Airway is patent Respiratory effort is even, unlabored. GI: Abdomen is round non-distended. : No signs and/or symptoms were reported regarding the genitourinary system. Derm: No signs and/or symptoms reported regarding the dermatologic system. Historical: - Allergies: 20:42 No Known Allergies; rv - PMHx: 20:42 Back pain; Hypertension; cholelithiasis; rv - PSHx: 20:42 None; rv - Immunization history:: Adult Immunizations up to date. - Social history:: Smoking status: Patient/guardian denies using tobacco, Stopped _ months ago 1. Screenin:30 [facility] ED Fall Risk Assessment (Adult) History of falling in the last 3 months, jb4 including since admission No falls in past 3 months (0 pts) Confusion or Disorientation No (0 pts). Abuse screen: Denies threats or abuse. Nutritional screening: No deficits noted. Tuberculosis screening: No symptoms or risk factors identified. Assessment: 22:00 Reassessment: Patient appears in no apparent distress at this time. Patient and/or jb4 family updated on plan of care and expected duration. Pain level reassessed. Patient is alert, oriented x 3, equal unlabored respirations, skin warm/dry/pink. 23:05 Reassessment: Patient appears in no apparent distress at this time. Patient and/or jb4 family updated on plan of care and expected duration. Pain level reassessed. Patient is alert, oriented x 3, equal unlabored respirations, skin warm/dry/pink. 12/28 00:12 Reassessment: Patient appears in no apparent distress at this time. Patient and/or jb4 family updated on plan of care and expected duration. Pain level reassessed. Patient is alert, oriented x 3, equal unlabored respirations, skin warm/dry/pink. Vital Signs: 12/27 20:40 BP 136 / 66; Pulse 85; Resp 16; Temp 98; Pulse Ox 100% ; Weight 113.4 kg; Height 5 ft. rv 7 in. ; 22:30 BP 139 / 79; Pulse 66; Resp 16; Pulse Ox 99% on R/A; jb4 23:30 BP 140 / 68; Pulse 80; Resp 16; Pulse Ox 100% on R/A; jb4 20:40 Body Mass Index 39.16 (113.40 kg, 170.18 cm) rv ED Course: 20:36 Patient arrived in ED. mr 20:37 Jenifer Yao FNP-C is PHCP. kb 20:37 Mert Ovalle MD is Attending Physician. kb 20:42 Triage completed. rv 20:42 Arm band placed on right wrist. rv 21:53 Abdomen Limited US In Process Unspecified. EDMS 22:02 Inserted saline lock: 20 gauge in right antecubital area, using aseptic technique. mc5 Blood collected. 23:05 Yehuda Malik, RN is Primary Nurse. jb4 23:30 Patient has correct armband on for positive identification. Bed in low position. Call jb4 light in reach. Side rails up X 1. Client placed on continuous cardiac and pulse oximetry monitoring. NIBP monitoring applied. 23:30 No provider procedures requiring assistance completed. IV discontinued, intact, jb4 bleeding controlled, No redness/swelling at site. Pressure dressing applied. Administered Medications: 22:26 Drug: NS 0.9% IV 1000 ml IV at 1 bolus Per protocol; 1000 mL bolus Route: IV; Rate: 1 jb4 bolus; Site: right antecubital; 22:26 Drug: Famotidine IVP 20 mg IVP once; dilute with 10 mL 0.9% NaCl; give over 2 minutes jb4 Route: IVP; Site: right antecubital; 22:27 Drug: TORadol - Ketorolac IVP 15 mg IVP once Route: IVP; Site: right antecubital; jb4 Outcome: 20:50 Discharged to home ambulatory, jb4 20:50 Condition: stable 20:50 Discharge instructions given to patient, Instructed on discharge instructions, follow up and referral plans. medication usage, Demonstrated understanding of instructions, follow-up care, medications, Prescriptions given X 2, 23:38 Discharge ordered by MD. fofana 12/28 00:13 Patient left the ED. jb4 Signatures: Dispatcher [employer] EDMS Jenifer Yao, BROADCAST DIRECTOR OPERATIONS-C BROADCAST DIRECTOR OPERATIONS-CkLisbeth Contreras, Reg Reg Yehuda Bhatia, RN RN jb4 Darrian Du, RN RN Yelena Martinez [facility]
--- NOTE | 2022-12-27 23:39 | EDPHYS ---
[facility] Name: Vish Valdivia Jr Age: 32 yrs Sex: Male : 1990 Arrival Date: 12/27/2022 Time: 20:33 Bed 8 Private MD: ED Physician Mert Ovalle HPI: 12/27 23:13 This 32 yrs old Male presents to ER via Ambulatory with complaints of kb Abdominal Pain, Constipation. 23:39 Patient is a 32-year-old male with history of hypertension who presents for upper kb abdominal pain for approximately 3 weeks. States he has an appointment with GI on January 08 but the pain is gotten worse over the last 2 days so he came to be evaluated.. Historical: - Allergies: 20:42 No Known Allergies; rv - PMHx: 20:42 Back pain; Hypertension; cholelithiasis; rv - PSHx: 20:42 None; rv - Immunization history:: Adult Immunizations up to date. - Social history:: Smoking status: Patient/guardian denies using tobacco, Stopped _ months ago 1. ROS: 23:10 Constitutional: Negative for fever, chills, and weight loss, kb 23:10 Abdomen/GI: Positive for abdominal pain, Negative for nausea, vomiting, and diarrhea, 23:10 All other systems are negative, Exam: 23:11 Constitutional: This is a well developed, well nourished patient who is awake, alert, kb and in no acute distress. Head/Face: Normocephalic, atraumatic. ENT: Moist Mucous membranes Cardiovascular: Regular rate Respiratory: Respirations even and unlabored. No increased work of breathing. Talking in full sentences Abdomen/GI: Soft, non-tender. No distention Skin: Warm, dry with normal turgor. Normal color. MS/ Extremity: Pulses equal, no cyanosis. Neurovascular intact. Full, normal range of motion. Neuro: Awake and alert, GCS 15, oriented to person, place, time, and situation. Moves all extremities. Normal gait. Vital Signs: 20:40 BP 136 / 66; Pulse 85; Resp 16; Temp 98; Pulse Ox 100% ; Weight 113.4 kg; Height 5 ft. rv 7 in. ; 22:30 BP 139 / 79; Pulse 66; Resp 16; Pulse Ox 99% on R/A; jb4 23:30 BP 140 / 68; Pulse 80; Resp 16; Pulse Ox 100% on R/A; jb4 20:40 Body Mass Index 39.16 (113.40 kg, 170.18 cm) rv MDM: 20:37 Patient medically screened. kb 23:12 Differential diagnosis: cholecystitis, Cholelithiasis, gastritis, gastroesophageal kb reflux disease, non-specific abd pain, pancreatitis. Data reviewed: vital signs, nurses notes. Counseling: I had a detailed discussion with the patient and/or guardian regarding the historical points, exam findings, and any diagnostic results supporting the discharge/admit diagnosis, lab results, radiology results, the need for outpatient follow up, a zipper cutter, to return to the emergency department if symptoms worsen or persist or if there are any questions or concerns that arise at home. 12/27 20:49 Order name: CBC with Diff; Complete Time: 22:41 kb 12/27 20:49 Order name: CMP; Complete Time: 22:43 kb 12/27 20:49 Order name: Lipase; Complete Time: 22:43 kb 12/27 20:49 Order name: Abdomen Limited US; Complete Time: 22:04 kb 12/27 20:49 Order name: IV Saline Lock; Complete Time: 22:02 kb 12/27 20:49 Order name: Labs collected and sent; Complete Time: 22:02 kb Administered Medications: 22:26 Drug: NS 0.9% IV 1000 ml IV at 1 bolus Per protocol; 1000 mL bolus Route: IV; Rate: 1 jb4 bolus; Site: right antecubital; 22:26 Drug: Famotidine IVP 20 mg IVP once; dilute with 10 mL 0.9% NaCl; give over 2 minutes jb4 Route: IVP; Site: right antecubital; 22:27 Drug: TORadol - Ketorolac IVP 15 mg IVP once Route: IVP; Site: right antecubital; jb4 Disposition: 12/28 03:14 Co-signature as Attending Physician, Mert Ovalle MD I agree with the assessment sp4 and plan of care. I reviewed the patient's care provided by the Advanced Practice Provider and agree with the diagnosis and treatment plan. Disposition Summary: 12/27/22 23:38 Discharge Ordered Notes: Location: Home kb Condition: Stable kb Diagnosis - Upper abdominal pain, unspecified kb Followup: kb - With: Emergency Department - When: As needed - Reason: Worsening of condition Followup: kb - With: Private Physician - When: 2 - 3 days - Reason: Recheck today's complaints, Continuance of care, Re-evaluation by your physician Discharge Instructions: - Discharge Summary Sheet kb - Abdominal Pain, Adult kb Forms: - Medication Reconciliation Form kb - Thank You Letter kb - Antibiotic Education kb - Prescription Opioid Use kb - Patient Portal Instructions kb - Leadership Thank You Letter kb Prescriptions: - Protonix 40 mg Oral Tablet - take 1 tablet ORAL route once daily; 30 tablet; Refills: 0, Product Selection kb Permitted - Lisinopril 10 mg Oral Tablet - take 1 tablet ORAL route once daily; 20 tablet; Refills: 0, Product Selection kb Permitted Signatures: Dispatcher [employer] EDMS Jenifer Yao, PHLEBOTOMY SERVICES REPRESENTATIVE-C PHLEBOTOMY SERVICES REPRESENTATIVE-Yehuda Steiner RN RN jb4 Darrian Du RN RN rv Potepalov, Sergey, MD MD sp4
[2022-12-28 00:26] VITALS: TEMP 98
[2022-12-28 00:30] VITALS: BP 140/68; O2SAT 100
== END 2022-12-28 00:13 | disposition home or self-care (01) ==
LOC: ER 20:33
DX: R10.10 Upper abdominal pain, unspecified (principal); I10 Essential (primary) hypertension
CPT/HCPCS: 85025; 36415; 83690; 80053; 76705; 96375; 96374; 99284; J7030

== ENCOUNTER 2023-02-22 23:47 | Emergency (ER) | payer OTHER ==
--- OUTSIDE RECORDS SUMMARY | 2023-02-22 23:51 | XMS REPORT | Continuity of Care Document ---
Author Name Unknown Address [address] [facility] [address] [place] [address] [facility] thconnect Address [address] [facility] [place] [address] Care Team Providers Care Greige Goods Inspector Name Role Phone PCP, PATIENT DOES NOT HAVE A Primary Care Physic nasim Unavailable Suzette ENCISO Attending Clinician Unavailable Suzette Rosas Attending Clinician [phone] SHADE REED Attending Clinician Unavailable Shade Reed MD Attending Clinician [phone] MURRAY LAO Attending Clinician Unavailable Murray Hooper Attending Clinician [phone] Doctor Unassigned, Long[place] Attending Clinician U navailable SHADE REED Admitting Clinician Unavailable MURRAY LAO Admitting Clinician Unavailable Payers Payer Name Policy Type Policy Number Effective Date Expirati on Date Source [employer] [id number] 2022 00:00:00 Problems Condition Name Condition Details Condition Category Status Onset Date Resolution Date Last Treatment Date Treating Clinician Comments Source No known active problems No known active problems Disease [facility] Allergies, Adverse Reactions, Alerts Allergy Name Allergy Type Status Severity Reaction(s) Onset Date Inactive Date Treating Clinician Comments Source NO KNOWN ALLERGIE S Drug Class Active [facility] Social History Social Habit Start Date Stop Date Quantity Comments Source Gender identity [facility] Sexual orientation [facility] Exposure to SARS-CoV-2 (event) 2022-04-29 00:00:00 2022-05-09 16:06:00 Not sure [facility] Sex Assigned At 1990 00:00:00 1990 00:00:00 [facility] Smoking Status Start Date Stop Date Source Tobacco smoking consumption unknown [facility] Medications Ordered Medication Name Filled Medication Name Start Date Stop Date Current Medication? Ordering Clinician Indication Dosage Frequency Signature (SIG) Comments Components Source ondansetron (ZOFRAN-ODT ) disintegrat ing tablet 4 mg 2022-02 01:00: 00 01-30 00:04 :00 No 4mg 4 mg, Oral, ONCE, 1 dose, On Sun01/29/23 at 1900, Routine [facility] acetaminoph en (TYLENOL) tablet 1,000 mg 2022-02 00:00: 00 01-30 00:00 :00 No 1000mg 1,000 mg, Oral, ONCE, 1 dose, On Sun01/29/23 at 1800, Routine [facility] ondansetron 4 mg disintegrat ing tablet 2022-02 00:00: 00 Yes [id number] 4mg Take 1 tablet by mouth every 8 (eight) hours as needed for Nausea and Vomiting (N/V). [facility] iohexol (OMNIPAQUE 350 BULK-500 mL) injection 75 mL 2022-02 04:15: 00 12-12 04:15 :00 No [id number] 75mL 75 mL, Intravenou s, ONCE, 1 dose, On Sun12/11/22 at 2215, Routine [facility] ketorolac (TORADOL) injection 30 mg 2022-02 04:00: 00 12-12 02:57 :00 No 30mg 30 mg, Slow IV Push, ONCE, 1 dose, On Sun12/11/22 at 2200, Routine [facility] ondansetron (ZOFRAN-ODT ) disintegrat ing tablet 4 mg 05 01:15: 00 05-10 00:44 :00 No 4mg 4 mg, Oral, ONCE, 1 dose, On Sun05/09/22 at 2015, [facility] NaCl 0.9% (NS) bolus infusion 1,000 mL 05-10 00:45: 00 05-10 01:53 :00 No 1000mL at 999 mL/hr, 1,000 mL, IV Infusion, ONCE, 1 dose, On Sun05/09/22 at 1945, [facility] dicyclomine (BENTYL) tablet 20 mg 05-10 00:30: 00 05-10 00:44 :00 No 20mg 20 mg, Oral, ONCE, 1 dose, On Sun05/09/22 at 1930, [facility] iopamidol (ISOVUE 370-500 mL) injection 75 mL 05-09 22:52: 00 05-09 22:52 :00 No [id number] 75mL 75 mL, Intravenou s, ONCE, 1 dose, On Sun05/09/22 at 1815, Routine [facility] proMETHazin e (PHENERGAN) 12.5 mg in NaCl 0.9% (NS) 50 mL IV piggyback 05-09 22:30: 00 05-09 22:35 :00 No 12.5mg 12.5 mg, IV Piggyback, ONCE, 1 dose, On Sun05/09/22 at 1730, [facility] NaCl 0.9% (NS) bolus infusion 1,000 mL 05-09 22:15: 00 05-10 00:03 :00 No 1000mL at 999 mL/hr, 1,000 mL, IV Infusion, ONCE, 1 dose, On Sun05/09/22 at 1715, [facility] ketorolac (TORADOL) injection 30 mg 05-09 21:30: 00 05-09 21:44 :00 No 30mg 30 mg, Slow IV Push, ONCE, 1 dose, On Sun05/09/22 at 1630, [facility] ondansetron (ZOFRAN (PF)) injection 4 mg 2022-0 4- 21:30: 00 - 21:24 :00 No 4mg 4 mg, Slow IV Push, ONCE, 1 dose, On Sun05/09/22 at 1630, DAYLIN [facility] dicyclomine 20 mg tablet 2022-0 4-04 00:00: 00 Yes [id number] 20mg Take 1 tablet by mouth 4 (four) times daily as needed for Abdominal pain. [facility] ondansetron 4 mg disintegrat ing tablet 2022-0 05-09 00:00: 00 Yes [id number] 4mg Take 1 tablet by mouth every 8 (eight) hours as needed for Nausea and Vomiting (N/V). [facility] dicyclomine 20 mg tablet 2022-0 05-09 00:00: 00 Yes [id number] 20mg Take 1 tablet by mouth 4 (four) times daily as needed for Abdominal pain. [facility] ondansetron 4 mg disintegrat ing tablet 2022-0 05-09 00:00: 00 Yes [id number] 4mg Take 1 tablet by mouth every 8 (eight) hours as needed for Nausea and Vomiting (N/V). [facility] dicyclomine 20 mg tablet 2022-0 04 00:00: 00 Yes [id number] 20mg Take 1 tablet by mouth 4 (four) times daily as needed for Abdominal pain. [facility] ondansetron 4 mg disintegrat ing tablet 2022-0 04 00:00: 00 Yes [id number] 4mg Take 1 tablet by mouth every 8 (eight) hours as needed for Nausea and Vomiting (N/V). [facility] dicyclomine 20 mg tablet 3-0 4-04 00:00: 00 Yes [id number] 20mg Take 1 tablet by mouth 4 (four) times daily as needed for Abdominal pain. [facility] ondansetron 4 mg disintegrat ing tablet 2022-0 4-04 00:00: 00 Yes [id number] 4mg Take 1 tablet by mouth every 8 (eight) hours as needed for Nausea and Vomiting (N/V). [facility] doxycycline hyclate (Vibramycin ) capsule 100 mg 10-30 06:15: 00 10-30 05:14 :00 No 100mg 100 mg, Oral, ONCE, 1 dose, On 10/30/20 at 0115, DAYLIN
Re ason for Anti-Infec tive: Documented Infection< br>Documen kevin Infection Site: Skin / Soft Tissue
Duration of Therapy: Other (see Comments) [facility] HYDROcodone -acetaminop hen (NORCO) 10-325 mg tablet 1 tablet 10-30 06:00: 00 10-30 05:14 :00 No 1{tbl} 1 tablet, Oral, ONCE, 1 dose, On 10/30/20 at 0100, Routine [facility] iohexol (OMNIPAQUE 350 BULK-100 mL) injection 120 mL 10-30 04:15: 00 10-30 04:06 :00 No [id number] 120mL 120 mL, Intravenou s, ONCE, 1 dose, On Sun10/29/20 at 2315, Routine [facility] ketorolac (TORADOL) injection 30 mg 10-30 03:30: 00 10-30 02:32 :00 No 30mg 30 mg, Slow IV Push, ONCE, 1 dose, On Sun10/29/20 at 2230, Routine
cafe team member approving Restricted medication : SHADE REED [facility] traMADoL (ULTRAM) 50 mg tablet 10-29 00:00: 00 Yes [id number] 50mg Take 1 tablet by mouth every 6 (six) hours as needed for Pain (scale 7-10). Indication s: acute pain [facility] doxycycline hyclate 100 mg capsule 10-29 00:00: 00 Yes [id number] 100mg Take 1 capsule by mouth 2 (two) times daily. [facility] traMADoL (ULTRAM) 50 mg tablet 10-29 00:00: 00 Yes [id number] 50mg Take 1 tablet by mouth every 6 (six) hours as needed for Pain (scale 7-10). Indication s: acute pain [facility] doxycycline hyclate 100 mg capsule 10-29 00:00: 00 Yes [id number] 100mg Take 1 capsule by mouth 2 (two) times daily. [facility] tra[facility] (ULTRAM) 50 mg tablet 10-29 00:00: 00 Yes [id number] 50mg Take 1 tablet by mouth every 6 (six) hours as needed for Pain (scale 7-10). Indication s: acute pain [facility] doxycycline hyclate 100 mg capsule 10-29 00:00: 00 Yes [id number] 100mg Take 1 capsule by mouth 2 (two) times daily. [facility] traMADoL (ULTRAM) 50 mg tablet 10-29 00:00: 00 Yes [id number] 50mg Take 1 tablet by mouth every 6 (six) hours as needed for Pain (scale 7-10). Indication s: acute pain [facility] doxycycline hyclate 100 mg capsule 0 10-29 00:00: 00 Yes [id number] 100mg Take 1 capsule by mouth 2 (two) times daily. [facility] traMADoL (ULTRAM) 50 mg tablet 10-29 00:00: 00 Yes [id number] 50mg Take 1 tablet by mouth every 6 (six) hours as needed for Pain (scale 7-10). Indication s: acute pain [facility] doxycycline hyclate 100 mg capsule 0 10-29 00:00: 00 Yes [id number] 100mg Take 1 capsule by mouth 2 (two) times daily. [facility] traMADoL (ULTRAM) 50 mg tablet 0 10-29 00:00: 00 Yes [id number] 50mg Take 1 tablet by mouth every 6 (six) hours as needed for Pain (scale 7-10). Indication s: acute pain [facility] doxycycline hyclate 100 mg capsule 2020-0 10-29 00:00: 00 Yes [id number] 100mg Take 1 capsule by mouth 2 (two) times daily. [facility] Vital Signs Vital Name Observation Time Observation Value Comments S ource Systolic blood pressure 2023-01-30 00:06:00 144 mm[Hg] [facility] Diastolic blood pressure 2023-01-30 00:06:00 84 mm[Hg] [facility] Heart rate 2023-01-30 00:06:00 92 /min [facility] Body temperature 2023-01-30 00:06:00 36.78 Marichuy [facility] Respiratory rate 2023-01-30 00:06:00 18 /min [facility] Oxygen saturation in Arterial blood by Pulse oximetry 2023-01-30 00:06:00 99 /min [facility] Body height 2023-01-29 22:38:00 170.2 cm [facility] Body weight 2023-01-29 22:38:00 113.399 kg [facility] BMI 2023-01-29 22:38:00 39.16 kg/m2 [facility] Systolic blood pressure 2022-12-12 05:00:00 126 mm[Hg] [facility] Diastolic blood pressure 2022-12-12 05:00:00 64 mm[Hg] [facility] Heart rate 2022-12-12 05:00:00 77 /min [facility] Respiratory rate 2022-12-12 05:00:00 16 /min [facility] Oxygen saturation in Arterial blood by Pulse oximetry 2022-12-12 05:00:00 98 /min [facility] Body temperature 2022-12-12 00:48:00 36.72 Marichuy [facility] Body height 2022-12-12 00:48:00 170.2 cm [facility] Body weight 2022-12-12 00:48:00 114.306 kg [facility] BMI 2022-12-12 00:48:00 39.47 kg/m2 [facility] Oxygen saturation in Arterial blood by Pulse oximetry 2022-05-10 01:50:00 100 /min [facility] Heart rate 2022-05-10 01:50:00 78 /min [facility] Respiratory rate 2022-05-10 01:50:00 15 /min [facility] Systolic blood pressure 2022-05-10 01:00:00 132 mm[Hg] [facility] Diastolic blood pressure 2022-05-10 01:00:00 64 mm[Hg] [facility] Body temperature 2022-05-09 21:26:00 35.94 Marichuy [facility] Body height 2022-05-09 21:05:00 172.7 cm [facility] Body weight 2022-05-09 21:05:00 106.595 kg [facility] BMI 2022-05-09 21:05:00 35.73 kg/m2 [facility] Systolic blood pressure 2020-10-30 05:24:00 130 mm[Hg] [facility] Diastolic blood pressure 2020-10-30 05:24:00 81 mm[Hg] [facility] Heart rate 2020-10-30 05:24:00 67 /min [facility] Respiratory rate 2020-10-30 05:24:00 16 /min [facility] Oxygen saturation in Arterial blood by Pulse oximetry 2020-10-30 05:24:00 100 /min [facility] Body temperature 2020-10-30 01:57:26 36.28 Marichuy [facility] Body height 2020-10-30 01:55:00 170.2 cm [facility] Body weight 2020-10-30 01:55:00 108.863 kg [facility] BMI 2020-10-30 01:55:00 37.59 kg/m2 [facility] Procedures Procedure Date / Time Performed Performing Clinician Source RAPID INFLUENZA A/B 2023-01-29 22:43:00 Suzette Enciso [facility] COVID-19 (ID NOW RAPID TESTING) 2023-01-29 22:43:00 Suzette Enciso [facility] CONSENT/REFUSAL FOR DIAGNOSIS AND TREATMENT 2023-01-29 22:33:13 Doctor Unassigned, Longoria [facility] CT THORAX W CONTRAST 2022-12-12 03:17:39 Mathew Reed i [facility] XR CHEST 1 VW 2022-12-12 01:42:55 Shade Reed [facility] LIPASE 2022-12-12 01:34:00 Shade Reed [facility] TROPONIN I 2022-12-12 01:34:00 Shade Reed [facility] COMP. METABOLIC PANEL ([id number]) 2022-12-12 01:34:00 Shade Reed [facility] CBC WITH DIFF 2022-12-12 01:34:00 Shade Reed [facility] D-DIMER 2022-12-12 01:34:00 Shade Reed [facility] CONSENT/REFUSAL FOR DIAGNOSIS AND TREATMENT 2022-12-12 00:26:37 Doctor Unassigned, Longoria [facility] CONSENT/REFUSAL FOR DIAGNOSIS AND TREATMENT 2022-10-17 01:16:23 Doctor Unassigned, Longoria [facility] CT ABDOMEN PELVIS W CONTRAST 2022-05-09 23:02:00 [facility] 2022-05-09 22:42:00 Shilo [facility] URINE DRUG (IMMUNOASSAY) - COMPREHENSIVE DRUG SCREEN W/O REFLEX 2022-05-09 22:42:00 [facility] 2022-05-09 21:21[facility] 2022-05-09 21:21:00 Murray Lao [facility] COMP. METABOLIC PANEL ([id number]) 2022-05-09 21:21:00 [facility] CBC WITH DIFF 2022-05-09 21:21:00 Murray Lao [facility] NOTICE OF PRIVACY PRACTICES 2022-05-09 21:02:32 Doctor Unassigned, Longoria [facility] CONSENT/REFUSAL FOR DIAGNOSIS AND TREATMENT 2022-05-09 20:59:14 Doctor Unassigned, Longoria [facility] CT ABDOMEN PELVIS W CONTRAST 2020-10-30 04:09:51 Shade Reed [facility] US SCROTUM AND CONTENTS 2020-10-30 03:24:00 Yair Reed [facility] COMP. METABOLIC PANEL ([id number]) 2020-10-30 02:31:00 Shade Reed [facility] CBC WITH DIFF 2020-10-30 02:31:00 Shade Reed [facility] URINALYSIS 2020-10-30 02:31:00 Shade Reed [facility] CONSENT/REFUSAL FOR DIAGNOSIS AND TREATMENT 2020-10-30 01:46:01 Doctor Unassigned, Longoria [facility] Encounters Start Date/Time End Date/Time Encounter Type Admission Type Attending [facility] Facility Care Department Encounter ID Source 2023-02-21 08:19:29 2023-02-21 08:19:29 Outpatient [facility] [id number] Phani Conti 2023-02-20 13:52:08 2023-02-20 13:52:08 Outpatient S[facility] [id number] Phani Conti 2023-02-16 09:10:31 2023-02-16 09:10:31 Outpatient [facility] [place] [id number] Phani Conti 2023-02-02 08:52:30 2023-02-02 08:52:30 Outpatient [facility] [id number] Phani Conti 2023-01-30 13:58:43 2023-01-30 13:58:43 Outpatient [facility] [id number] Phani Conti 2023-01-29 16:43:00 2023-01-29 18:30:00 Emergency X Suzette ENCISO [facility] ERT [id number] [facility] 2023-01-29 16:43:00 2023-01-29 18:30:00 Emergency Suzette Enciso [facility] [id number] 350.1.13.10 4.2.7.2.686 [id number] [facility] 2023-01-08 13:26:45 2023-01-08 13:26:45 Outpatient SFA [facility] [id number] Phani Conti 2022-12-11 18:52:00 2022-12-11 23:17:00 Emergency X SHADE REED [facility] ERT [id number] [facility] 2022-12-11 18:52:00 2022-12-11 23:17:00 Emergency Shade Reed [facility] [id number] 350.1.13.10 4.2.7.2.686 [id number] [facility] 2022-10-16 20:34:00 2022-10-16 20:35:00 Emergency X [facility] ERT [id number] [facility] 2022-10-16 20:34:00 2022-10-16 20:35:00 Emergency [facility] [id number] 350.1.13.10 4.2.7.2.686 [id number] [facility] 2022-05-09 16:12:00 2022-05-09 20:56:00 Emergency X MURRAY LAO [facility] ERT [id number] [facility] 2022-05-09 16:12:00 2022-05-09 20:56:00 Emergency Murray Lao [facility] [id number] 350.1.13.10 4.2.7.2.686 [id number] [facility] 2022-05-09 00:00:00 2022-05-09 00:00:00 Orders Only Doctor Unassigned, Longoria [facility] 1.2840.114 350.1.13.10 4.2.7.2.686 [id number] [facility] 2020-10-29 20:48:00 2020-10-30 00:26:00 Emergency YaShade polanco [facility] [id number] 350.1.13.10 4.2.7.2.686 [id number] [facility] 2020-10-29 20:48:00 2020-10-30 00:26:00 Emergency X SHADE REED [facility] ERT [id number] [facility] Results Test Description Test Time Test Comments Results Result Co mments Source [facility][id number][facility]2022-12-12 02:03:36* Test Item Value Reference Range Interpretation Comme nts NA (test code = 7155328279) 137 mmol/L 135-145 K (test code = 8345850631) 3.7 mmol/L 3.5-5.0 CL (test code = 4952129569) 101 mmol/L 98-108 CO2 TOTAL (test code = 7755618884) 22 mmol/L 23-31 L AGAP (test code = 6256202271) 14 2-16 BUN (test code = 0697970227) 15 mg/dL 7-23 GLUCOSE (test code = 6067293771) 112 mg/dL 70-110 H CREATININE (test code = 5902261871) 0.96 mg/dL 0.60-1.25 TOTAL BILI (test code = 6773062145) 0.5 mg/dL 0.1-1.1 CALCIUM (test code = 2643363396) 10.3 mg/dL 8.6-10.6 T PROTEIN (test code = 2596895948) 8.7 g/dL 6.3-8.2 H ALBUMIN (test code = 3316507498) 5.4 g/dL 3.5-5.0 H ALK PHOS (test code = 7098344258) 87 U/L 34-122 ALTv (test code = 1742-6) 47 U/L 5-50 AST(SGOT) (test code = 6178693593) 36 U/L 13-40 eGFR (test code = 79720-7) 107.7 mL/min/1.73m2 CKD-EPI eGFR (2020). Assuming creatinine has been stable day-to-day for at least three months, the eGFR indicates Category G1 (>= 90 mL/min/1.73 m2) Lab Interpretation (test code = 23865-7) [facility] 02:03:36* Test Item Value Reference Range Interpretation Comme nts LIPASE (test code = 4837770352) 238 U/L 0-220 H Lab Interpretation (test cod e = 98612-7) Abnormal [id number] 02:02:50* Test Item Value Reference Range Interpretation Comments D-DIMER (test code = 3344931666) See_Comment [Automated message] The system which generated this result transmitted reference range: <0.41 ?g/mL (FEU). The reference range was not used to interpret this result as normal/abnormal. RASHAUN (test code = RASHAUN) This test may be used in conjunction with a clinical pretest [...] context, in forming a diagnosis. Lab Interpretation (test code = 28601-7) Normal [facility] [id number] 01:51:36* Test Item Value Reference Range Interpretation Comme nts WBC (test code = 6690-2) 10.32 See_Comment [Automated [employer] [place]] The system which generated this result transmitted reference range: 4.20 - 10.70 10*3/?L. The reference range was not used to interpret this result as normal/abnormal. RBC (test code = 789-8) 5.22 See_Comment [Automated [employer] [place]] The system which generated this result transmitted reference range: 4.26 - 5.52 10*6/?L. The reference range was not used to interpret this result as normal/abnormal. HGB (test code = 718-7) 15.6 g/dL 12.2-16.4 HCT (test code = 4544-3) 44.0 % 38.4-49.3 MCV (test code = 787-2) 84.3 fL 81.7-95.6 MCH (test code = 785-6) 29.9 pg 26.1-32.7 MCHC (test code = 786-4) 35.5 g/dL 31.2-35.0 H RDW-SD (test code = 80171-1) 41.5 fL 38.5-51.6 RDW-CV (test code = 788-0) 13.4 % 12.1-15.4 PLT (test code = 777-3) 293 See_Comment [Automated Blockchain[employer] ge] The system which generated this result transmitted reference range: 150 - 328 10*3/?L. The reference range was not used to interpret this result as normal/abnormal. MPV (test code = 41489-7) 11.1 fL 9.8-13.0 NRBC/100 WBC (test code = 7398698286) 0.0 See_Comment [Automated mana.bo ssage] The system which generated this result transmitted reference range: 0.0 - 10.0 /100 WBCs. The reference range was not used to interpret this result as normal/abnormal. NRBC x10^3 (test code = 8173712367) See_Comment [Automated Blockchaina ge] The system which generated this result transmitted reference range: 10*3/?L. The reference range was not used to interpret this result as normal/abnormal. GRAN MAT (NEUT) % (test code = 770-8) 70.3 % IMM GRAN % (test code = 0222951879) 0.30 % LYMPH % (test code = 736-9) 17.8 % MONO % (test code = 5905-5) 8.6 % EOS % (test code = 713-8) 2.1 % BASO % (test code = 706-2) 0.9 % GRAN MAT x10^3(ANC) (test code = 0651743618) 7.25 10*3/uL 1.99-6.95 H IMM GRAN x10^3 (test code = 5904886163) 0.03 10*3/uL 0.00-0.06 LYMPH x10^3 (test code = 731-0) 1.84 10*3/uL 1.09-3.23 MONO x10^3 (test code = 742-7) 0.89 10*3/uL 0.36-1.02 EOS x10^3 (test code = 711-2) 0.22 10*3/uL 0.06-0.53 BASO x10^3 (test code = 704-7) 0.09 10*3/uL 0.01-0.09 Lab Interpretation (test code = 28182-4) Abnormal [facility] [id number] 22:15:45* Test Item Value Reference Range Interpretation Comme nts TROPONIN I (test code = 9743893854) 0.001 ng/mL <=0.034 RASHAUN (test code = [...] of biotin. Lab Interpretation (test code = 90605-9) Normal [facility] (83223)2022-05-09 21:58:56* Test Item Value Reference Range Interpretation Comme nts NA (test code = 4825220873) 138 mmol/L 135-145 K (test code = 7870655251) 4.3 mmol/L 3.5-5.0 CL (test code = 1711139283) 103 mmol/L 98-108 CO2 TOTAL (test code = 2358828654) 18 mmol/L 23-31 L AGAP (test code = 8564051386) 17 2-16 H BUN (test code = 0643140318) 15 mg/dL 7-23 GLUCOSE (test code = 8198932259) 136 mg/dL 70-110 H CREATININE (test code = 7021253330) 0.83 mg/dL 0.60-1.25 TOTAL BILI (test code = 6456929227) 0.8 mg/dL 0.1-1.1 CALCIUM (test code = 3817338419) 10.7 mg/dL 8.6-10.6 H T PROTEIN (test code = 4119144831) 9.2 g/dL 6.3-8.2 H ALBUMIN (test code = 1098379651) 5.5 g/dL 3.5-5.0 H ALK PHOS (test code = 3940395984) 83 U/L 34-122 ALTv (test code = 1742-6) 27 U/L 5-50 AST(SGOT) (test code = 0829024203) 28 U/L 13-40 eGFR (test code = 3432768586) 107.4 mL/min/1.73m2 RASHAUN (test code = RASHAUN) Association of [...] or abnormalities in imaging tests). Lab Interpretation (test code = 20091-2) [facility]normal [facility] 21:58:41* Test Item Value Reference Range Interpretation Comme nts LIPASE (test code = 1490580443) 123 U/L 0-220 Lab Interpretation (test cod e = 44959-1) Normal [facility] [id number] 21:46:56* Test Item Value Reference Range Interpretation Comme nts WBC (test code = 6690-2) 16.34 See_Comment H [Automated message] The system which generated this result transmitted reference range: 4.20 - 10.70 10*3/?L. The reference range was not used to interpret this result as normal/abnormal. RBC (test code = 789-8) 5.74 See_Comment H [Automated message] The system which generated this result transmitted reference range: 4.26 - 5.52 10*6/?L. The reference range was not used to interpret this result as normal/abnormal. HGB (test code = 718-7) 16.8 g/dL 12.2-16.4 H HCT (test code = 4544-3) 47.8 % 38.4-49.3 MCV (test code = 787-2) 83.3 fL 81.7-95.6 MCH (test code = 785-6) 29.3 pg 26.1-32.7 MCHC (test code = 786-4) 35.1 g/dL 31.2-35.0 H RDW-SD (test code = 83345-5) 40.4 fL 38.5-51.6 RDW-CV (test code = 788-0) 13.4 % 12.1-15.4 PLT (test code = 777-3) 333 See_Comment H [Automated message] The system which generated this result transmitted reference range: 150 - 328 10*3/?L. The reference range was not used to interpret this result as normal/abnormal. MPV (test code = 12164-4) 11.6 fL 9.8-13.0 NRBC/100 WBC (test code = 0332973101) 0.0 See_Comment [Automated message] The system which generated this result transmitted reference range: 0.0 - 10.0 /100 WBCs. The reference range was not used to interpret this result as normal/abnormal. NRBC x10^3 (test code = 0777483082) See_Comment [Automated message] The system which generated this result transmitted reference range: 10*3/?L. The reference range was not used to interpret this result as normal/abnormal. GRAN MAT (NEUT) % (test code = 770-8) 79.8 % IMM GRAN % (test code = 5633438209) 0.50 % LYMPH % (test code = 736-9) 15.2 % MONO % (test code = 5905-5) 3.4 % EOS % (test code = 713-8) 0.4 % BASO % (test code = 706-2) 0.7 % GRAN MAT x10^3(ANC) (test code = 7389544712) 13.04 10*3/uL 1.99-6.95 H IMM GRAN x10^3 (test code = 1987507534) 0.08 10*3/uL 0.00-0.06 H LYMPH x10^3 (test code = 731-0) 2.48 10*3/uL 1.09-3.23 MONO x10^3 (test code = 742-7) 0.56 10*3/uL 0.36-1.02 EOS x10^3 (test code = 711-2) 0.07 10*3/uL 0.06-0.53 BASO x10^3 (test code = 704-7) 0.11 10*3/uL 0.01-0.09 H Lab Interpretation (test code = 55791-5) Abnormal [facility]. METABOLIC PANEL (89775)2020-10-30 02:58:42* Test Item Value Reference Range Interpretation Comme nts NA (test code = 5403977957) 137 mmol/L 135-145 K (test code = 7363630731) 4.0 mmol/L 3.5-5.0 CL (test code = 6017352101) 102 mmol/L 98-108 CO2 TOTAL (test code = 2496496461) 21 mmol/L 23-31 L AGAP (test code = 2355653791) 2-16 BUN (test code = 5654307883) 12 mg/dL 7-23 GLUCOSE (test code = 4418725887) 113 mg/dL 70-110 H CREATININE (test code = 3936884486) 0.92 mg/dL 0.60-1.25 TOTAL BILI (test code = 3548043065) 1.0 mg/dL 0.1-1.1 CALCIUM (test code = 5402685676) 10.4 mg/dL 8.6-10.6 T PROTEIN (test code = 6026265791) 8.6 g/dL 6.3-8.2 H ALBUMIN (test code = 5144462608) 5.3 g/dL 3.5-5.0 H ALK PHOS (test code = 3988457943) 86 U/L 34-122 ALTv (test code = 1742-6) 23 U/L 5-50 AST(SGOT) (test code = 7467045998) 29 U/L 13-40 eGFR (test code = 9335581503) mL/min/1.73m2 RASHAUN (test code = RASHAUN) Association of [...] or abnormalities in imaging tests). Lab Interpretation (test code = 30797-7) Abnormal [facility] WITH SGJB0688-42-85 02:44:58* Test Item Value Reference Range Interpretation Comme nts WBC (test code = 6690-2) See_Comment H [Automated messa ge] The system which generated this result transmitted reference range: 4.20 - 10.70 10*3/?L. The reference range was not used to interpret this result as normal/abnormal. RBC (test code = 789-8) See_Comment [Automated messa ge] The system which generated this result transmitted reference range: 4.26 - 5.52 10*6/?L. The reference range was not used to interpret this result as normal/abnormal. HGB (test code = 718-7) 15.5 g/dL 12.2-16.4 HCT (test code = 4544-3) 45.3 % 38.4-49.3 MCV (test code = 787-2) 86.0 fL 81.7-95.6 MCH (test code = 785-6) 29.4 pg 26.1-32.7 MCHC (test code = 786-4) 34.2 g/dL 31.2-35.0 RDW-SD (test code = 94894-1) 41.8 fL 38.5-51.6 RDW-CV (test code = 788-0) 13.3 % 12.1-15.4 PLT (test code = 777-3) See_Comment [Automated Blockchaina ge] The system which generated this result transmitted reference range: 150 - 328 10*3/?L. The reference range was not used to interpret this result as normal/abnormal. MPV (test code = 19204-8) 11.3 fL 9.8-13.0 NRBC/100 WBC (test code = 4465557733) See_Comment [Automated mana.bo ssage] The system which generated this result transmitted reference range: 0.0 - 10.0 /100 WBCs. The reference range was not used to interpret this result as normal/abnormal. NRBC x10^3 (test code = 1053440957) <0.01 See_Comment [Automated messa ge] The system which generated this result transmitted reference range: 10*3/?L. The reference range was not used to interpret this result as normal/abnormal. GRAN MAT (NEUT) % (test code = 770-8) 65.2 % IMM GRAN % (test code = 4015323668) 0.30 % LYMPH % (test code = 736-9) 25.4 % MONO % (test code = 5905-5) 6.5 % EOS % (test code = 713-8) 1.9 % BASO % (test code = 706-2) 0.7 % GRAN MAT x10^3(ANC) (test code = 2041334567) 7.12 10*3/uL 1.99-6.95 H IMM GRAN x10^3 (test code = 2401896042) 0.03 10*3/uL 0.00-0.06 LYMPH x10^3 (test code = 731-0) 2.78 10*3/uL 1.09-3.23 MONO x10^3 (test code = 742-7) 0.71 10*3/uL 0.36-1.02 EOS x10^3 (test code = 711-2) 0.21 10*3/uL 0.06-0.53 BASO x10^3 (test code = 704-7) 0.08 10*3/uL 0.01-0.09 Lab Interpretation (test code = 15206-0) Abnormal [facility] Notes Date/Time Note Provider Source 2023-01-29 18:29:49 naD1NKSuv5+tXdVmVtEv94OVZRZnUdW6f+Ep oXAmGisMZASQvUTCyVOo7S+QOSCI0832-43- 25T18:29:49 Pt given printed and verbal discharge instructions regarding URI, encouraged hydration.1 Prescription sent to pharmacyPt verbalized understanding of instructions, pt awake alert oriented, resp reg unlabored, skin w/d, color appropriate for race, moves all ext well,pt encouraged to follow up with pcp.Advised to seek medical attention for new/prolonged/worsening of symptoms.No adverse reaction to meds given in ER noted upon dischargeAwake, alert oriented, resp reg unlabored, skin w/d, pt leaving amb with steady gait, in no apparent distress. 26075-3Igqwabqzh department LxmyZR2930-47-99F22:30:38[facility] NoteTXT1.2.840.142582.1.13.104.2.7.2 .640086|[id number] for patient bcde76928-3UkfuNDOJTHSCPWKAnwvszkrz C-CDA narrative [id number] M Martinez RN[id number] AQBEIIIHEEWBTENPXKEGLT7113-37-58O65: 30:381.2.840.816288.1.72.3.15|1.2.84 0.112275.1.13.104.2.7.2.727879_19852 15298 Adela Arroyo RN [facility] 2023-01-29 16:37:26 yzkNnXQTqRtEO2RTVIq6cCoK11ix/AqWtSk/ lKkewZwWjdUJwImoPJ0XxDKw5uDP1976-13- 25T16:37:26 Pt to ED CO body aches, fatigue, dizziness x 1 week. States he has been in and out of the hospital the past month for "intestine problems."Hx of gastroparesis 86917-2Zvxztyqkm department Triage pjbkQB3377-81-29A06:43:21[facility] Triage noteTXT1.2.840.567133.1.13.104.2.7.2 .488963|[id number] for patient ieuj21882-3Rzyewhrbv department NoteLNNARRATIVEFormatted C-CDA narrative [id number] Cuevas RN[id number] EGWNORTYIWQAEXMFUKBJEV4128-36-75R49: 43:211.2.840.519904.1.72.3.15|1.2.84 0.455582.1.13.104.2.7.2.727879_19852 92646 Elise Cuevas RN [facility] 2022-10-16 20:34:26 g/MxV+xSCXhZkWxktPtSuu8oSuyeQQPk8fg1 4YJ3j0kB5suMoPuO+TApNIjAIum48444-56- 11T20:34:26 [facility], per registration pt left facility 21638-8Zzqdasyuy department WuvgFR6402-51-96D06:34:40[facility] NoteTXT1.2.840.705563.1.13.104.2.7.2 .386777|[id number] for patient qsuh06164-4EgcoSV302961977Uhoz E Linkes RN[address] Fw[id number] TSUWDEZREVBPTXGNSBRQKS8712-77-20Z04: 34:401.2.840.648598.1.72.3.15|1.2.84 0.522404.1.13.104.2.7.2.727879_18966 50797 Margo Bustamante RN [facility]
[2023-02-23] MEDS ORDERED: LORazepam 2 MG/ML VIAL ONE (01:25)
[2023-02-23 01:51] LABS: Hematocrit 46.2 % (39.6-49.0); Lymphocytes % 34.8 % (15.3-44.8); MCV 87.1 fL (80-100); Platelets 329 thou/uL (152-406); RBC Red Blood Cell Count 5.31 M/uL (4.33-5.43)
[2023-02-23 02:02] LABS: Potassium 3.6 mEq/L (3.5-5.1); Troponin High Sensitivity 5.9 pg/mL (<58.9)
--- NOTE | 2023-02-23 02:22 | EDPHYS ---
Physician Documentation [facility] Name: Vish Valdivia Jr Age: 33 yrs Sex: Male : 1990 Arrival Date: 02/22/2023 Time: 23:47 Bed 19 Private MD: ED Physician Elina Gracia HPI: 02/23 01:17 This 33 yrs old Male presents to ER via Ambulatory with complaints of Chest sp3 Pain, Shortness Of Breath, Numbness Of Face. 01:17 33-year-old male with a history of anxiety, hyperlipidemia, hypertension now presents sp3 to the ED with chief complaint chest pain, shortness of breath, facial numbness and generalized anxiety for several days worse earlier today. Patient denies any cardiac history or prior VA. No family history of CAD or early VA. Patient denies any trauma, URI symptoms, fever, headache, back pain, abdominal pain, nausea, vomiting, diarrhea, other anginal equivalents, syncope, near syncope, focal neurological deficit, or any other signs or symptoms on ROS at this time.. Historical: - Allergies: 00:01 No Known Allergies; pf1 - PMHx: 00:01 Back pain; Cholelithiasis; Hypertension; Hypercholesterolemia; Anxiety; pf1 - PSHx: 00:01 None; pf1 - Immunization history:: Adult Immunizations up to date, Client reports having NOT received the Covid vaccine. Last tetanus immunization: < 10 years ago Flu vaccine is not up to date. - Social history:: Smoking status: Patient/guardian denies using tobacco, Stopped _ months ago [address], cocaine, marijuana, Patient/guardian denies using alcohol, Patient stated stop doing cocaine 3 months ago. . ROS: 01:19 Constitutional: Negative for fever, chills, and weight loss, Eyes: Negative for injury, sp3 pain, redness, and discharge, ENT: Negative for injury, pain, and discharge, Neck: Negative for injury, pain, and swelling, Abdomen/GI: Negative for abdominal pain, nausea, vomiting, diarrhea, and constipation, Back: Negative for injury and pain, MS/Extremity: Negative for injury and deformity, Skin: Negative for injury, rash, and discoloration, Neuro: Negative for headache, weakness, numbness, tingling, and seizure, Psych: Negative for depression, anxiety, suicide ideation, homicidal ideation, and hallucinations, Allergy/Immunology: Negative for hives, rash, and allergies, Endocrine: Negative for neck swelling, polydipsia, polyuria, polyphagia, and marked weight changes, Hematologic/Lymphatic: Negative for swollen nodes, abnormal bleeding, and unusual bruising, : All other systems are negative, Exam: : Constitutional: This is a well developed, well nourished patient who is awake, alert, sp3 and in no acute distress. Head/Face: Normocephalic, atraumatic. Eyes: Pupils equal round and reactive to light, extra-ocular motions intact. Lids and lashes normal. Conjunctiva and sclera are non-icteric and not injected. Cornea within normal limits. Periorbital areas with no swelling, redness, or edema. ENT: Nares patent. No nasal discharge, no septal abnormalities noted. External auditory canals are clear. Oropharynx with no redness, swelling, or masses, exudates, or evidence of obstruction, uvula midline. Mucous membranes moist. Neck: Trachea midline, no thyromegaly or masses palpated, and no cervical lymphadenopathy. Supple, full range of motion without nuchal rigidity, or vertebral point tenderness. No Meningismus. Chest/axilla: Normal chest wall appearance and motion. Nontender with no deformity. No lesions are appreciated. Cardiovascular: Regular rate and rhythm with a normal S1 and S2. No gallops, murmurs, or rubs. Normal PMI, no JVD. No pulse deficits. Respiratory: Lungs have equal breath sounds bilaterally, clear to auscultation and percussion. No rales, rhonchi or wheezes noted. No increased work of breathing, no retractions or nasal flaring. Abdomen/GI: Soft, non-tender, with normal bowel sounds. No distension or tympany. No guarding or rebound. No evidence of tenderness throughout. Back: No spinal tenderness. No costovertebral tenderness. Full range of motion. Skin: Warm, dry with normal turgor. Normal color with no rashes, no lesions, and no evidence of cellulitis. MS/ Extremity: Pulses equal, no cyanosis. Neurovascular intact. Full, normal range of motion. Neuro: Awake and alert, GCS 15, oriented to person, place, time, and situation. Cranial nerves II-XII grossly intact. Motor strength 5/5 in all extremities. Sensory grossly intact. Cerebellar exam normal. Normal gait. Psych: Awake, alert, with orientation to person, place and time. Behavior, mood, and affect are within normal limits. 01:19 ECG was reviewed by the Attending Physician. EKG demonstrates normal sinus rhythm with right bundle branch block, nonspecific diffuse ST/T changes without evidence of acute ischemia. Vital Signs: 02/22 23:57 BP 141 / 74; Pulse 77; Resp 18; Temp 98.6; Pulse Ox 98% on R/A; Weight 118.84 kg; pf1 Height 5 ft. 7 in. ; Pain 8/10; 02/23 02:17 BP 116 / 66; Pulse 80; Resp 16 S; Pulse Ox 96% on R/A; jw7 02/22 23:57 Body Mass Index 41.03 (118.84 kg, 170.18 cm) pf1 02/22 23:57 Pain Scale: Adult pf1 MDM: 00:05 Patient medically screened. sp3 01:20 Data reviewed: vital signs, nurses notes, lab test result(s), EKG, radiologic studies. sp3 ED course: 33-year-old male with anxiety symptoms with associated chest pain and shortness of breath. I believe these are all related to anxiety and I am not super highly suspicious for acute coronary syndrome, PE, TAD, mediastinitis, sepsis, shock, pneumonia, pneumothorax, or any other critical process at this time. Consider GI pathology, anxiety, functional pain, MSK, among others. Will treat with Ativan IV. EKG and chest x-ray are normal. Laboratory values including troponin and D-dimer are pending. If workup is negative, we will safely discharge him home to PCP follow-up.. 02:17 ED course: Workup is negative and patient is improved. We will safely discharge him sp3 home at this time.. 02/23 01:06 Order name: Basic Metabolic Panel; Complete Time: 02:17 sp3 02/23 01:06 Order name: CBC with Diff; Complete Time: :17 sp3 02/23 01:06 Order name: D-Dimer; Complete Time: 02:17 sp3 02/23 01:06 Order name: Troponin HS; Complete Time: : sp3 02/23 00:00 Order name: XRAY Chest (1 view) sp3 02/23 00:00 Order name: EKG; Complete Time: 00:00 sp3 02/23 00:00 Order name: EKG - Nurse/Tech; Complete Time: 01:10 sp3 02/23 01:06 Order name: IV Saline Lock; Complete Time: 35 sp3 02/23 01:06 Order name: Labs collected and sent; Complete Time: sp3 Administered Medications: :35 Drug: Ativan IVP 1 mg IVP once Route: IVP; Site: right antecubital; jw7 02:23 Follow up: Response: No adverse reaction; Marked relief of symptoms jw7 Disposition Summary: 02/23/23 02:21 Discharge Ordered Notes: Location: Home sp3 Condition: Stable sp3 Diagnosis - Anxiety, chest pain resolved sp3 Followup: sp3 - With: Private Physician - When: Upon discharge from the Emergency Department - Reason: Continuance of care Discharge Instructions: - Discharge Summary Sheet sp3 - Nonspecific Chest Pain, Adult, Xfjf-vc-Bpcf sp3 - Managing Anxiety, Adult sp3 Forms: - Medication Reconciliation Form sp3 - Thank You Letter sp3 - Antibiotic Education sp3 - Prescription Opioid Use sp3 - Patient Portal Instructions sp3 - Leadership Thank You Letter sp3 Signatures: Dispatcher [employer] Elina Pimentel MD MD sp3 Ember Bray RN RN jw7 Anisa Napier RN RN pf1
--- NOTE | 2023-02-23 02:22 | ER ---
Nurse's Notes [facility] Name: Vish Valdivia Jr Age: 33 yrs Sex: Male : 1990 Arrival Date: 02/22/2023 Time: 23:47 Bed 19 Private MD: Diagnosis: Anxiety, chest pain resolved Presentation: 02/22 23:57 Chief complaint: Patient states: bilateral/mid chest pain of 8, elevated BP 152/?,onset pf1 1630 with tingling and numbness sensation to right side of head and face, onset 1400 with anxiety. Patient stated took Hydroxyzine HCL 25 mg at 1800. Coronavirus screen: Vaccine status: Patient reports being unvaccinated. Client denies travel out of the [place] in the last 14 days. At this time, the client does not indicate any symptoms associated with coronavirus-19. Ebola Screen: Patient negative for fever greater than or equal to 101.5 degrees Fahrenheit, and additional compatible Ebola Virus Disease symptoms. Initial Sepsis Screen: Does the patient meet any 2 criteria? No. Patient's initial sepsis screen is negative. Does the patient have a suspected source of infection? No. Patient's initial sepsis screen is negative. Risk Assessment: Do you want to hurt yourself or someone else? Patient reports no desire to harm self or others. 23:57 Method Of Arrival: Ambulatory pf1 23:57 Acuity: [place]OL[place] 2 pf1 02/23 01:08 Onset of symptoms was February 23, 2023. jw7 Historical: - Allergies: 00:01 No Known Allergies; pf1 - PMHx: 00:01 Back pain; Cholelithiasis; Hypertension; Hypercholesterolemia; Anxiety; pf1 - PSHx: 00:01 None; pf1 - Immunization history:: Adult Immunizations up to date, Client reports having NOT received the Covid vaccine. Last tetanus immunization: < 10 years ago Flu vaccine is not up to date. - Social history:: Smoking status: Patient/guardian denies using tobacco, Stopped _ months ago [address], cocaine, marijuana, Patient/guardian denies using alcohol, Patient stated stop doing cocaine 3 months ago. . Screenin:01 [facility] ED Fall Risk Assessment (Adult) History of falling in the last 3 months, jw7 including since admission No falls in past 3 months (0 pts) Score/Fall Risk Level 0 - 2 = Low Risk Oriented to surroundings, Maintained a safe environment, Educated pt \T\ family on fall prevention, incl call for assistance when getting out of bed. Abuse screen: Denies threats or abuse. Denies injuries from another. Nutritional screening: No deficits noted. Tuberculosis screening: No symptoms or risk factors identified. Assessment: 01:05 General: Appears in no apparent distress. comfortable, Behavior is calm, cooperative. jw7 Pain: Complains of pain in chest Pain does not radiate. Pain currently is 8 out of 10 on a pain scale. Quality of pain is described as pressure, squeezing, Pain began suddenly, Is continuous. Neuro: Level of Consciousness is awake, alert, obeys commands, Oriented to person, place, time, situation. Cardiovascular: Heart tones S1 S2 present Capillary refill < 3 seconds Clubbing of nail beds is absent JVD is absent Patient's skin is warm and dry. Respiratory: Airway is patent Trachea midline Respiratory effort is even, unlabored, Respiratory pattern is regular, symmetrical. GI: Abdomen is round non-distended, Bowel sounds present X 4 quads. Abd is soft and non tender X 4 quads. : No deficits noted. No signs and/or symptoms were reported regarding the genitourinary system. EENT: No deficits noted. No signs and/or symptoms were reported regarding the EENT system. Derm: Skin is intact, is healthy with good turgor, Skin is dry, Skin is normal, Skin temperature is warm. Musculoskeletal: Circulation, motion, and sensation intact. Range of motion: intact in all extremities. 02:17 Reassessment: Patient appears in no apparent distress at this time. Patient and/or jw7 family updated on plan of care and expected duration. Pain level reassessed. Patient is alert, oriented x 3, equal unlabored respirations, skin warm/dry/pink. Vital Signs: 02/22 23:57 BP 141 / 74; Pulse 77; Resp 18; Temp 98.6; Pulse Ox 98% on R/A; Weight 118.84 kg; pf1 Height 5 ft. 7 in. ; Pain 8/10; 02/23 02:17 BP 116 / 66; Pulse 80; Resp 16 S; Pulse Ox 96% on R/A; jw7 02/22 23:57 Body Mass Index 41.03 (118.84 kg, 170.18 cm) pf1 02/22 23:57 Pain Scale: Adult pf1 ED Course: 02/22 23:48 Patient arrived in ED. jj6 23:59 Elina Gracia MD is Attending Physician. sp3 02/23 00:01 Triage completed. pf1 00:26 XRAY Chest (1 view) In Process Unspecified. EDMS 01:00 Ember Bray, RN is Primary Nurse. jw7 01:01 Patient has correct armband on for positive identification. Bed in low position. Call jw7 light in reach. Client placed on continuous cardiac and pulse oximetry monitoring. NIBP monitoring applied. 01:01 Arm band placed on. jw7 01:01 Patient maintains SpO2 saturation greater than 95% on room air. jw7 01:35 Initial lab(s) drawn, by ED staff, sent to lab. EKG done, by ED staff, reviewed by monica Gracia MD. Inserted saline lock: 20 gauge in right antecubital area, using aseptic technique. Blood collected. 02:22 No provider procedures requiring assistance completed. jw7 02:31 Provided Education on: discharge instructions . jw7 02:31 IV discontinued, intact, bleeding controlled, No redness/swelling at site. Pressure jw7 dressing applied. Administered Medications: 01:35 Drug: Ativan IVP 1 mg IVP once Route: IVP; Site: right antecubital; jw7 02:23 Follow up: Response: No adverse reaction; Marked relief of symptoms jw7 Medication: 02:22 VIS not applicable for this client. jw7 Outcome: 02:21 Discharge ordered by . sp3 02:31 Discharged to home ambulatory, jw7 02:31 Condition: stable 02:31 Discharge instructions given to patient, Instructed on discharge instructions, follow up and referral plans. Demonstrated understanding of instructions, follow-up care, 02:31 Patient left the ED. jw7 Signatures: Dispatcher [employer] DIANAMN Elina Gracia MD MD sp3 Edel Britton jj6 Ember Bray, RN RN jw7 Anisa Napier RN RN pf1
[2023-02-23 07:39] VITALS: TEMP 98.6
[2023-02-23 07:53] VITALS: BP 116/66; O2SAT 96
--- NOTE | 2023-02-23 11:13 | RAD REPORT ---
EXAM DESCRIPTION: RAD - Chest Single View - 02/23/2023 12:24 am CLINICAL HISTORY: The patient is 33 years old and is Male; CHEST PAIN Bed: TECHNIQUE: Frontal view of the chest. COMPARISON: No relevant prior studies available. FINDINGS: LUNGS: Prominent appearance of the bilateral interstitia favored to be artifactual secon edward to underpenetration. No discrete focal consolidation. PLEURAL SPACE: No appreciable pleural effusion or pneumothorax. MEDIASTINUM: Unremarkable cardiomediastinal contour. BONES/JOINTS: No acute osseous abnormality. IMPRESSION: No acute findings in the chest. Electronically signed by: Ian Hair MD 02/23/2023 12:33 AM CONVERTER OPERATOR Due to temporary technical issues with the PACS/Fluency reporting system, reports are being signed by the in house radiologist without review as a courtesy to ensure prompt reporting. The interpreting r adiologist is fully responsible for the content of the report.
--- NOTE | 2023-02-26 17:05 | EKG ---
Test Date: 2023-02-22 Test Time: 23:53:57 Wrapper Sheeter: CARO MEASUREMENT RESULTS: Intervals: Rate: 72 [place]: 140 QRSD: 100 QT: 392 QTc: 429 [place]: P: 54 [place]: 140 QRS: 73 T: 15 INTERPRETIVE STATEMENTS: Normal sinus rhythm Incomplete right bundle branch block Borderline ECG Compared to ECG 12/08/2022 22:15:49 No significant changes Electronically Signed On 02-26-23 16:55:01 RADIOLOGIST CHIEF OF BREAST IMAGING by Samuel Ashraf
== END 2023-02-23 02:31 | disposition home or self-care (01) ==
LOC: ER 23:47
DX: R07.9 Chest pain, unspecified (principal); F41.9 Anxiety disorder, unspecified; I10 Essential (primary) hypertension; E78.00 Pure hypercholesterolemia, unspecified; F12.90 Cannabis use, unspecified, uncomplicated; Z87.891 Personal history of nicotine dependence
CPT/HCPCS: 71045; 93005; 96374; 99285

== ENCOUNTER → 2023-04-18 | Emergency (ER) | payer OTHER ==
[~2023-04-18] MED LIST: KETOROLAC 30 MG/ML INJ ONE; dexAMETHasone 10 MG/ML VIAL ONE
--- OUTSIDE RECORDS SUMMARY | 2023-04-18 18:38 | XMS REPORT | Continuity of Care Document ---
Author Name Unknown Address [address] [facility] [address] [place] [address] [facility] thconnect Address [address] [place] [address] Care Team Providers Care [employer] Teacher Name Role Phone PCP, PATIENT DOES NOT HAVE A Primary Care Physic nasim Unavailable Suzette ENCISO Attending Clinician Unavailable Suzette Rosas Attending Clinician SHADE REED Attending Clinician Unavailable Shade Reed MD Attending Clinician MURRAY LAO Attending Clinician Unavailable Murray Hooper Attending Clinician Doctor Unassigned, [place] Attending Clinician U SRIDHAR Modi Attending Clinician Un available SHADE REED Admitting Clinician Unavailable MURRAY LAO Admitting Clinician Unavailable Payers Payer Name Policy Type Policy Number Effective Date Expirati on Date Source [employer] [id number] 2022 00:00:00 Problems Condition Name Condition Details Condition Category Status Onset Date Resolution Date Last Treatment Date Treating Clinician Comments Source No known active problems No known active problems Disease [facility] Allergies, Adverse Reactions, Alerts Allergy Name Allergy Type Status Severity Reaction(s) Onset Date Inactive Date Treating Clinician Comments Source NO KNOWN ALLERGIE S Drug Class Active [facility] Social History Social Habit Start Date Stop Date Quantity Comments Source [facility] Exposure to SARS-CoV-2 (event) 2022-04-29 00:00:00 2022-05-09 16:06:00 Not sure [facility] Sex Assigned At 1990 00:00:00 1990 00:00:00 [facility] Smoking Status Start Date Stop Date Source Tobacco smoking consumption unknown [facility] Medications Ordered Medication Name Filled Medication Name Start Date Stop Date Current Medication? Ordering Clinician Indication Dosage Frequency Signature (SIG) Comments Components Source ondansetron (ZOFRAN-ODT ) disintegrat ing tablet 4 mg 2022-02 01:00: 00 01-30 00:04 :00 No 4mg 4 mg, Oral, ONCE, 1 dose, On Sun01/29/23 at 1900, Routine [facility] acetaminoph en (TYLENOL) tablet 1,000 mg 2022-02 00:00: 00 01-30 00:00 :00 No 1000mg 1,000 mg, Oral, ONCE, 1 dose, On Sun01/29/23 at 1800, Routine [facility] ondansetron 4 mg disintegrat ing tablet 2022-02 00:00: 00 Yes [id number] 4mg Take 1 tablet by mouth every 8 (eight) hours as needed for Nausea and Vomiting (N/V). [facility] iohexol (OMNIPAQUE 350 BULK-500 mL) injection 75 mL 2022-02 04:15: 00 12-12 04:15 :00 No [id number] 75mL 75 mL, Intravenou s, ONCE, 1 dose, On Sun12/11/22 at 2215, Routine [facility] ketorolac (TORADOL) injection 30 mg 2022-02 04:00: 00 12-12 02:57 :00 No 30mg 30 mg, Slow IV Push, ONCE, 1 dose, On Sun12/11/22 at 2200, Routine [facility] ondansetron (ZOFRAN-ODT ) disintegrat ing tablet 4 mg 05-10 01:15: 00 05-10 00:44 :00 No 4mg 4 mg, Oral, ONCE, 1 dose, On Sun05/09/22 at 2015, [facility] NaCl 0.9% (NS) bolus infusion 1,000 mL 05-10 00:45: 00 05-10 01:53 :00 No 1000mL at 999 mL/hr, 1,000 mL, IV Infusion, ONCE, 1 dose, On Sun05/09/22 at 1945, [facility] dicyclomine (BENTYL) tablet 20 mg 05-10 00:30: 00 05-10 00:44 :00 No 20mg 20 mg, Oral, ONCE, 1 dose, On Sun05/09/22 at 1930, [facility] iopamidol (ISOVUE 370-500 mL) injection 75 mL 05-09 22:52: 00 05-09 22:52 :00 No [id number] 75mL 75 mL, Intravenou s, ONCE, 1 dose, On Sun05/09/22 at 1815, [facility] proMETHazin e (PHENERGAN) 12.5 mg in NaCl 0.9% (NS) 50 mL IV piggyback 05-09 22:30: 00 05-09 22:35 :00 No 12.5mg 12.5 mg, IV Piggyback, ONCE, 1 dose, On Sun05/09/22 at 1730, [facility] NaCl 0.9% (NS) bolus infusion 1,000 mL 05-09 22:15: 00 05-10 00:03 :00 No 1000mL at 999 mL/hr, 1,000 mL, IV Infusion, ONCE, 1 dose, On Sun05/09/22 at 1715, [facility] ketorolac (TORADOL) injection 30 mg 05-09 21:30: 00 05-09 21:44 :00 No 30mg 30 mg, Slow IV Push, ONCE, 1 dose, On Sun05/09/22 at 1630, Routine [facility] ondansetron (ZOFRAN (PF)) injection 4 mg 05-09 21:30: 00 05-09 21:24 :00 No 4mg 4 mg, Slow IV Push, ONCE, 1 dose, On Sun05/09/22 at 1630, [facility] dicyclomine 20 mg tablet 05-09 00:00: 00 Yes [id number] 20mg Take 1 tablet by mouth 4 (four) times daily as needed for Abdominal pain. [facility] ondansetron 4 mg disintegrat ing tablet 05-09 00:00: 00 Yes [id number] 4mg Take 1 tablet by mouth every 8 (eight) hours as needed for Nausea and Vomiting (N/V). [facility] dicyclomine 20 mg tablet 2022-05-09 00:00: 00 Yes [id number] 20mg Take 1 tablet by mouth 4 (four) times daily as needed for Abdominal pain. [facility] ondansetron 4 mg disintegrat ing tablet 05-09 00:00: 00 Yes [id number] 4mg Take 1 tablet by mouth every 8 (eight) hours as needed for Nausea and Vomiting (N/V). [facility] dicyclomine 20 mg tablet 2022-0 05-09 00:00: 00 Yes [id number] 20mg Take 1 tablet by mouth 4 (four) times daily as needed for Abdominal pain. [facility] ondansetron 4 mg disintegrat ing tablet 2022-0 05-09 00:00: 00 Yes [id number] 4mg Take 1 tablet by mouth every 8 (eight) hours as needed for Nausea and Vomiting (N/V). [facility] dicyclomine 20 mg tablet 2022-0 05-09 00:00: 00 Yes [id number] 20mg Take 1 tablet by mouth 4 (four) times daily as needed for Abdominal pain. [facility] ondansetron 4 mg disintegrat ing tablet 4-04 00:00: 00 Yes [id number] 4mg Take 1 tablet by mouth every 8 (eight) hours as needed for Nausea and Vomiting (N/V). [facility] doxycycline hyclate (Vibramycin ) capsule 100 mg 10-30 06:15: 00 10-30 05:14 :00 No 100mg 100 mg, Oral, ONCE, 1 dose, On Sun10/30/20 at 0115, [facility]
Re ason for Anti-Infec tive: Documented Infection< br>Documen kevin Infection Site: Skin / Soft Tissue
Duration of Therapy: Other (see Comments) [facility] HYDROcodone -acetaminop hen (NORCO) 10-325 mg tablet 1 tablet 10-30 06:00: 00 10-30 05:14 :00 No 1{tbl} 1 tablet, Oral, ONCE, 1 dose, On Sun10/30/20 at 0100, Routine [facility] iohexol (OMNIPAQUE 350 BULK-100 mL) injection 120 mL 10-30 04:15: 00 10-30 04:06 :00 No [id number] 120mL 120 mL, Intravenou s, ONCE, 1 dose, On Sun10/29/20 at 2315, Routine [facility] ketorolac (TORADOL) injection 30 mg 10-30 03:30: 00 10-30 02:32 :00 No 30mg 30 mg, Slow IV Push, ONCE, 1 dose, On Sun10/29/20 at 2230, Routine
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 Indication s: acute pain [facility] doxycycline hyclate 100 mg capsule 10-29 00:00: 00 Yes [id number] 100mg Take 1 capsule by mouth 2 (two) times daily. [facility] traMADoL (ULTRAM) 50 mg tablet 10-29 00:00: 00 Yes [id number] 50mg Take 1 tablet by mouth every 6 (six) hours as needed for Pain (scale 7-10). Indication s: acute pain [facility] doxycycline hyclate 100 mg capsule 2020-0 10-29 00:00: 00 Yes [id number] 100mg Take 1 capsule by mouth 2 (two) times daily. [facility]AM[facility] 50 mg tablet 0 10-29 00:00: 00 Yes [id number] 50mg Take 1 tablet by mouth every 6 (six) hours as needed for Pain (scale 7-10). Indication s: acute pain [facility] doxycycline hyclate 100 mg capsule 10-29 00:00: 00 Yes [id number] 100mg Take 1 capsule by mouth 2 (two) times daily. [facility] traMADoL (ULTRAM) 50 mg tablet 2020-0 10-29 00:00: 00 Yes [id number] 50mg Take 1 tablet by mouth every 6 (six) hours as needed for Pain (scale 7-10). Indication s: acute pain [facility] doxycycline hyclate 100 mg capsule 2020-0 10-29 00:00: 00 Yes [id number] 100mg Take 1 capsule by mouth 2 (two) times daily. [facility] traMADoL (ULTRAM) 50 mg tablet 0 10-29 00:00: 00 Yes [id number] 50mg Take 1 tablet by mouth every 6 (six) hours as needed for Pain (scale 7-10). Indication s: acute pain [facility] doxycycline hyclate 100 mg capsule 0 10-29 00:00: 00 Yes [id number] 100mg Take 1 capsule by mouth 2 (two) times daily. [facility] tra[facility]ADoL (ULTRAM) 50 mg tablet 2020-0 10-29 00:00: 00 Yes [id number] 50mg Take 1 tablet by mouth every 6 (six) hours as needed for Pain (scale 7-10). Indication s: acute pain [facility] hyclate 100 mg capsule 2020-0 10-29 00:00: 00 Yes [id number] 100mg Take 1 capsule by mouth 2 (two) times daily. [facility] Vital Signs Vital Name Observation Time Observation Value Comments S debi Systolic blood pressure 2023-01-30 00:06:00 144 mm[Hg] [facility] Diastolic blood pressure 2023-01-30 00:06:00 84 mm[Hg] [facility] Heart rate 2023-01-30 00:06:00 92 /min Unive [facility] Body temperature 2023-01-30 00:06:00 36.78 Marichuy [facility] Respiratory rate 2023-01-30 00:06:00 18 /min [facility] Oxygen saturation in Arterial blood by Pulse oximetry 2023-01-30 00:06:00 99 /min [facility] Body height 2023-01-29 22:38:00 170.2 cm [facility] Body weight 2023-01-29 22:38:00 113.399 kg [facility] BMI 2023-01-29 22:38:00 39.16 kg/m2 [facility] Systolic blood pressure 2022-12-12 05:00:00 126 mm[Hg] [facility] Diastolic blood pressure 2022-12-12 05:00:00 64 mm[Hg] [facility] Heart rate 2022-12-12 05:00:00 77 /min [facility] Respiratory rate 2022-12-12 05:00:00 16 /min [facility] Oxygen saturation in Arterial blood by Pulse oximetry 2022-12-12 05:00:00 98 /min [facility] Body temperature 2022-12-12 00:48:00 36.72 Marichuy [facility] Body height 2022-12-12 00:48:00 170.2 cm [facility] Body weight 2022-12-12 00:48:00 114.306 kg [facility] BMI 2022-12-12 00:48:00 39.47 kg/m2 [facility] Oxygen saturation in Arterial blood by Pulse oximetry 2022-05-10 01:50:00 100 /min [facility] Heart rate 2022-05-10 01:50:00 78 /min Un[facility] Respiratory rate 2022-05-10 01:50:00 15 /min [facility] Systolic blood pressure 2022-05-10 01:00:00 132 mm[Hg] [facility] Diastolic blood pressure 2022-05-10 01:00:00 64 mm[Hg] [facility] Body temperature 2022-05-09 21:26:00 35.94 Marichuy [facility] Body height 2022-05-09 21:05:00 172.7 cm [facility] Body weight 2022-05-09 21:05:00 106.595 kg [facility] BMI 2022-05-09 21:05:00 35.73 kg/m2 [facility] Systolic blood pressure 2020-10-30 05:24:00 130 mm[Hg] [facility] Diastolic blood pressure 2020-10-30 05:24:00 81 mm[Hg] [facility] Heart rate 2020-10-30 05:24:00 67 /min [facility] Respiratory rate 2020-10-30 05:24:00 16 /min [facility] Oxygen saturation in Arterial blood by Pulse oximetry 2020-10-30 05:24:00 100 /min [facility] Body temperature 2020-10-30 01:57:26 36.28 Marichuy [facility] Body height 2020-10-30 01:55:00 170.2 cm [facility] Body weight 2020-10-30 01:55:00 108.863 kg [facility] BMI 2020-10-30 01:55:00 37.59 kg/m2 [facility] Procedures Procedure Date / Time Performed Performing Clinician Source RAPID INFLUENZA A/B 2023-01-29 22:43:00 Suzette Enciso [facility] COVID-19 (ID NOW RAPID TESTING) 2023-01-29 22:43:00 Suzette Enciso [facility] CONSENT/REFUSAL FOR DIAGNOSIS AND TREATMENT 2023-01-29 22:33:13 Doctor Unassigned, [place] [facility] CT THORAX W CONTRAST 2022-12-12 03:17:39 Mathew Reed i [facility] XR CHEST 1 VW 2022-12-12 01:42:55 Shade Reed [facility] LIPASE 2022-12-12 01:34:00 Shade Reed [facility] TROPONIN I 2022-12-12 01:34:00 Shade Reed [facility] COMP. METABOLIC PANEL ([id number]) 2022-12-12 01:34:00 Shade Reed [facility] CBC WITH DIFF 2022-12-12 01:34:00 Shade Reed [facility] D-DIMER 2022-12-12 01:34[facility] TREATMENT 2022-12-12 00:26:37 Doctor Unassigned, [place] [facility] CONSENT/REFUSAL FOR DIAGNOSIS AND TREATMENT 2022-10-17 01:16:23 Doctor Unassigned, [place] [facility] CT ABDOMEN PELVIS W CONTRAST 2022-05-09 [facility]:02[facility]22-05-09 22:42:00 Shilo [facility] URINE DRUG (IMMUNOASSAY) - COMPREHENSIVE DRUG SCREEN W/O REFLEX 2022-05-09 22:42:00 Murray Lao [facility] LIPASE 2022-05-09 21:21:00 Murray Lao [facility] TROPONIN I 2022-05-09 21:21:00 Murray Lao [facility] COMP. METABOLIC PANEL ([id number]) 2022-05-09 21:21:00 [facility] 2022-05-09 21:21:00 Murray Lao [facility] NOTICE OF PRIVACY PRACTICES 2022-05-09 21:02:32 Doctor Unassigned, [place] [facility] CONSENT/REFUSAL FOR DIAGNOSIS AND TREATMENT 2022-05-09 20:59:14 Doctor Unassigned, [place] [facility] CT ABDOMEN PELVIS W CONTRAST 2020-10-30 04:09:51 Shade Reed [facility] US SCROTUM AND CONTENTS 2020-10-30 03:24:00 Yair Reed [facility] COMP. METABOLIC PANEL ([id number]) 2020-10-30 02:31:00 Shade Reed [facility] CBC WITH DIFF 2020-10-30 02:31:00 Shade Reed [facility] URINALYSIS 2020-10-30 02:31:00 Shade Reed [facility] CONSENT/REFUSAL FOR DIAGNOSIS AND TREATMENT 2020-10-30 01:46:01 Doctor Unassigned, [place] [facility] Encounters Start Date/Time End Date/Time Encounter Type Admission Type Attending [facility] Care Facility Care Department Encounter ID Source 2023-04-13 10:42:36 2023-04-13 10:42:36 Outpatient SFA SFA [id number] Phani Conti 2023-03-02 09:04:28 2023-03-02 09:04:28 Outpatient SFA SFA [id number] Phani Conti 2023-02-21 08:19:29 2023-02-21 08:19:29 Outpatient SFA SFA [id number] Phani Leonardo Gallito 2023-02-20 13:52:08 2023-02-20 13:52:08 Outpatient SFA SFA [id number] Phani Conti 2023-02-16 09:10:31 2023-02-16 09:10:31 Outpatient SFA SFA [id number] Phani Leonardo Gallito 2023-02-02 08:52:30 2023-02-02 08:52:30 Outpatient SFA SFA [id number] Phani Conti 2023-01-30 13:58:43 2023-01-30 13:58:43 Outpatient SFA SFA [id number] Phani Leonardo Gallito 2023-01-29 16:43:00 2023-01-29 18:30:00 Emergency X FERNIE, K [facility] ERT [id number] [facility] 2023-01-29 16:43:00 2023-01-29 18:30:[address] Enciso [facility] [id number] 350.1.13.10 [id number] [id number] [facility] 2023-01-08 13:26:45 2023-01-08 13:26:45 Outpatient SFA [facility] [id number] Phani Conti 2022-12-11 18:52:00 2022-12-11 23:17:00 Emergency X SHADE REED [facility] ERT [id number] [facility] 2022-12-11 18:52:00 2022-12-11 23:17:[address] Reed [facility] [id number] 350.1.13.10 [id number] [id number] [facility] 2022-10-16 20:34:00 2022-10-16 20:35:00 Emergency X [facility] ERT [id number] [facility] 2022-10-16 20:34:00 2022-10-16 20:35:[address] [facility] [id number] 350.1.13.10 4.2.7.2.686 [id number] [facility] 2022-05-09 16:12:00 2022-05-09 20:56:00 Emergency X MURRAY LAO [facility] ERT [id number] [facility] 2022-05-09 16:12:00 2022-05-09 20:56:[address] Murray Lao [facility] [id number] [id number] 4.2.7.2.686 [id number] [facility] 2022-05-09 00:00:00 2022-05-09 00:00:00 Orders Only Doctor Unassigned, [place] [facility] [id number] 350.1.13.10 4.2.7.2.686 [id number] [facility] 2020-10-29 20:48:00 2020-10-30 00:26:00 Emergency Shade Reed [facility] [id number] 350.1.13.10 4.2.7.2.686 [id number] [facility] 2020-10-29 20:48:00 2020-10-30 00:26:00 Emergency X SHADE REED [facility] ERT [id number] [facility] 2019-05-22 18:33:00 2019-05-22 20:18:00 Emergency E [address] [facility] Results Test Description Test Time Test Comments Results Result Co mments Source [facility]IC [facility] ([id number])2022-12-12 02:03:36* Test Item Value Reference Range Interpretation Comme nts NA (test code = 8814984752) 137 mmol/L 135-145 K (test code = 9204989073) 3.7 mmol/L 3.5-5.0 CL (test code = 8424146879) 101 mmol/L 98-108 CO2 TOTAL (test code = 4239352864) 22 mmol/L 23-31 L AGAP (test code = 7329832995) 14 2-16 BUN (test code = 8195773885) 15 mg/dL 7-23 GLUCOSE (test code = 6813716570) 112 mg/dL 70-110 H CREATININE (test code = 1186840952) 0.96 mg/dL 0.60-1.25 TOTAL BILI (test code = 4277924191) 0.5 mg/dL 0.1-1.1 CALCIUM (test code = 8491659580) 10.3 mg/dL 8.6-10.6 T PROTEIN (test code = 9060157677) 8.7 g/dL 6.3-8.2 H ALBUMIN (test code = 7132966542) 5.4 g/dL 3.5-5.0 H ALK PHOS (test code = 3468130305) 87 U/L 34-122 ALTv (test code = 1742-6) 47 U/L 5-50 AST(SGOT) (test code = 1654784471) 36 U/L 13-40 eGFR (test code = 71196-4) 107.7 mL/min/1.73m2 CKD-EPI eGFR (2020). Assuming creatinine has been stable day-to-day for at least three months, the eGFR indicates Category G1 (>= 90 mL/min/1.73 m2) Lab Interpretation (test code = 93724-6) [facility]normal [facility] 02:03:36* Test Item Value Reference Range Interpretation Comme nts LIPASE (test code = 4749328574) 238 U/L 0-220 H Lab Interpretation (test cod e = 14313-8) Abnormal [facility]-[id number] 02:02:50* Test Item Value Reference Range Interpretation Comments D-DIMER (test code = 7422195442) See_Comment [Automated message] The system which generated [...] a diagnosis. Lab Interpretation (test code = 38740-9) Normal [facility] WITH [id number] 01:51:36* Test Item Value Reference Range Interpretation Comme nts WBC (test code = 6690-2) 10.32 See_Comment [Automated [employer]] The system which generated this result transmitted reference range: 4.20 - 10.70 10*3/?L. The reference range was not used to interpret this result as normal/abnormal. RBC (test code = 789-8) 5.22 See_Comment [Automated [employer]] The system which generated this result [...] g/dL 31.2-35.0 H RDW-SD (test code = 26135-4) 41.5 fL 38.5-51.6 RDW-CV (test code = 788-0) 13.4 % 12.1-15.4 PLT (test code = 777-3) 293 See_Comment [Automated [employer]] The system which generated this result transmitted reference range: 150 - 328 10*3/?L. The reference range was not used to interpret this result as normal/abnormal. MPV (test code = 06901-1) 11.1 fL 9.8-13.0 NRBC/100 WBC (test code = 1233571630) 0.0 See_Comment [Automated [employer]] The system which generated this result transmitted reference range: 0.0 - 10.0 /100 WBCs. The reference range was not used to interpret this result as normal/abnormal. NRBC x10^3 (test code = 2070904385) See_Comment [Automated [employer]] The system which generated this result transmitted reference range: 10*3/?L. The reference range was not used to interpret this result as normal/abnormal. GRAN MAT (NEUT) % (test code = 770-8) 70.3 % IMM GRAN % (test code = 6192713449) 0.30 % LYMPH % (test code = 736-9) 17.8 % MONO % (test code = 5905-5) 8.6 % EOS % (test code = 713-8) 2.1 % BASO % (test code = 706-2) 0.9 % GRAN MAT x10^3(ANC) (test code = 3149570743) 7.25 10*3/uL 1.99-6.95 H IMM GRAN x10^3 (test code = 8806108389) 0.03 10*3/uL 0.00-0.06 LYMPH x10^3 (test code = 731-0) 1.84 10*3/uL 1.09-3.23 MONO x10^3 (test code = 742-7) 0.89 10*3/uL 0.36-1.02 EOS x10^3 (test code = 711-2) 0.22 10*3/uL 0.06-0.53 BASO x10^3 (test code = 704-7) 0.09 10*3/uL 0.01-0.09 Lab Interpretation (test code = 77113-6) Abnormal [facility] [id number] 22:15:45* Test Item Value Reference Range Interpretation Comme nts TROPONIN I (test code = 4998469986) 0.001 ng/mL <=0.034 RASHAUN (test code = [...] of biotin. Lab Interpretation (test code = 76561-8) Normal [facility]OLIC PANEL ([id number])2022-05-09 21:58:56* Test Item Value Reference Range Interpretation Comme nts NA (test code = 0891738811) 138 mmol/L 135-145 K (test code = 7494124034) 4.3 mmol/L 3.5-5.0 CL (test code = 7771332698) 103 mmol/L 98-108 CO2 TOTAL (test code = 7269631237) 18 mmol/L 23-31 L AGAP (test code = 2470396530) 17 2-16 H BUN (test code = 9589871446) 15 mg/dL 7-23 GLUCOSE (test code = 3092459021) 136 mg/dL 70-110 H CREATININE (test code = 4244476260) 0.83 mg/dL 0.60-1.25 TOTAL BILI (test code = 3484980603) 0.8 mg/dL 0.1-1.1 CALCIUM (test code = 5604719470) 10.7 mg/dL 8.6-10.6 H T PROTEIN (test code = 4712449682) 9.2 g/dL 6.3-8.2 H ALBUMIN (test code = 1629954648) 5.5 g/dL 3.5-5.0 H ALK PHOS (test code = 8076952676) 83 U/L 34-122 ALTv (test code = 1742-6) 27 U/L 5-50 AST(SGOT) (test code = 7649789052) 28 U/L 13-40 eGFR (test code = 4995686546) 107.4 mL/min/1.73m2 RASHAUN (test code = RASHAUN) [...] imaging tests). Lab Interpretation (test code = 34965-7) Abnormal [facility]2023-[facility] 21:58:41* Test Item Value Reference Range Interpretation Comme nts LIPASE (test code = 3050108223) 123 U/L 0-220 Lab Interpretation (test cod e = 13393-2) Normal [facility] WITH [id number] 21:46:56* Test Item Value Reference Range Interpretation [...] g/dL 31.2-35.0 H RDW-SD (test code = 04231-8) 40.4 fL 38.5-51.6 RDW-CV (test code = 788-0) 13.4 % 12.1-15.4 PLT (test code = 777-3) 333 See_Comment H [Automated message] The system which generated this result transmitted reference range: 150 - 328 10*3/?L. The reference range was not used to interpret this result as normal/abnormal. MPV (test code = 78968-6) 11.6 fL 9.8-13.0 NRBC/100 WBC (test code = 7710901181) 0.0 See_Comment [Automated message] The system which generated this result transmitted reference range: 0.0 - 10.0 /100 WBCs. The reference range was not used to interpret this result as normal/abnormal. NRBC x10^3 (test code = 6140343732) See_Comment [Automated message] The system which generated this result transmitted reference range: 10*3/?L. The reference range was not used to interpret this result as normal/abnormal. GRAN MAT (NEUT) % (test code = 770-8) 79.8 % IMM GRAN % (test code = 9280959967) 0.50 % LYMPH % (test code = 736-9) 15.2 % MONO % (test code = 5905-5) 3.4 % EOS % (test code = 713-8) 0.4 % BASO % (test code = 706-2) 0.7 % GRAN MAT x10^3(ANC) (test code = 4797751297) 13.04 10*3/uL 1.99-6.95 H IMM GRAN x10^3 (test code = 2900194027) 0.08 10*3/uL 0.00-0.06 H LYMPH x10^3 (test code = 731-0) 2.48 10*3/uL 1.09-3.23 MONO x10^3 (test code = 742-7) 0.56 10*3/uL 0.36-1.02 EOS x10^3 (test code = 711-2) 0.07 10*3/uL 0.06-0.53 BASO x10^3 (test code = 704-7) 0.11 10*3/uL 0.01-0.09 H Lab Interpretation (test code = 73676-7) [facility] ([id number])2020-10-30 02:58:42* Test Item Value Reference Range Interpretation Comme nts NA (test code = 8337715811) 137 mmol/L 135-145 K (test code = 8847660281) 4.0 mmol/L 3.5-5.0 CL (test code = 5772665870) 102 mmol/L 98-108 CO2 TOTAL (test code = 2566977174) 21 mmol/L 23-31 L AGAP (test code = 0773898042) 2-16 BUN (test code = 8376183835) 12 mg/dL 7-23 GLUCOSE (test code = 3480711751) 113 mg/dL 70-110 H CREATININE (test code = 3815977046) 0.92 mg/dL 0.60-1.25 TOTAL BILI (test code = 8187333665) 1.0 mg/dL 0.1-1.1 CALCIUM (test code = 9742259481) 10.4 mg/dL 8.6-10.6 T PROTEIN (test code = 6422371909) 8.6 g/dL 6.3-8.2 H ALBUMIN (test code = 4412146957) 5.3 g/dL 3.5-5.0 H ALK PHOS (test code = 6721136505) 86 U/L 34-122 ALTv (test code = 1742-6) 23 U/L 5-50 AST(SGOT) (test code = 0134906479) 29 U/L 13-40 eGFR (test code = 5740605344) mL/min/1.73m2 RASHAUN (test code = RASHAUN) Association [...] imaging tests). Lab Interpretation (test code = 34409-1) Abnormal [facility] WITH XNKU5314-76-64 02:44:58* Test Item Value Reference Range Interpretation Comme nts WBC (test code = 6690-2) See_Comment H [[employer]] The system which generated this result transmitted reference range: 4.20 - 10.70 10*3/?L. The reference range was not used to interpret this result as normal/abnormal. RBC (test code = 789-8) See_Comment [[employer]] The system which generated this result transmitted [...] 34.2 g/dL 31.2-35.0 RDW-SD (test code = 89340-9) 41.8 fL 38.5-51.6 RDW-CV (test code = 788-0) 13.3 % 12.1-15.4 PLT (test code = 777-3) See_Comment [Automated messa ge] The system which generated this result transmitted reference range: 150 - 328 10*3/?L. The reference range was not used to interpret this result as normal/abnormal. MPV (test code = 47728-5) 11.3 fL 9.8-13.0 NRBC/100 WBC (test code = 0802598307) See_Comment [Automated me ssage] The system which generated this result transmitted reference range: 0.0 - 10.0 /100 WBCs. The reference range was not used to interpret this result as normal/abnormal. NRBC x10^3 (test code = 7663950652) <0.01 See_Comment [Automated messa ge] The system which generated this result transmitted reference range: 10*3/?L. The reference range was not used to interpret this result as normal/abnormal. GRAN MAT (NEUT) % (test code = 770-8) 65.2 % IMM GRAN % (test code = 9627789137) 0.30 % LYMPH % (test code = 736-9) 25.4 % MONO % (test code = 5905-5) 6.5 % EOS % (test code = 713-8) 1.9 % BASO % (test code = 706-2) 0.7 % GRAN MAT x10^3(ANC) (test code = 4695936839) 7.12 10*3/uL 1.99-6.95 H IMM GRAN x10^3 (test code = 5430741324) 0.03 10*3/uL 0.00-0.06 LYMPH x10^3 (test code = 731-0) 2.78 10*3/uL 1.09-3.23 MONO x10^3 (test code = 742-7) 0.71 10*3/uL 0.36-1.02 EOS x10^3 (test code = 711-2) 0.21 10*3/uL 0.06-0.53 BASO x10^3 (test code = 704-7) 0.08 10*3/uL 0.01-0.09 Lab Interpretation (test code = 71130-3) Abnormal [facility] Notes Date/Time Note Provider Source 2023-01-29 18:29:49 riF0QRGeu1+jMsMpHlPa54QSUXClBkD4k+Ep tIKxSxcODEWHgXAMhRRa9R+BAGGT6470-61- 25T18:29:49 Pt given printed and verbal discharge [...] with steady gait, in no apparent distress. 94797-0Licrgbvvk department SkdbNZ9995-12-53R01:30:38Emergen department NoteTXT1.2.840.310115.1.13.104.2.7.2 .939408|[id number] for patient cumo84393-3SvbkAONHKEGWOXMMcvurlnau C-CDA narrative [id number] Arroyo RN[address] Dk[id number] IOBMNLROAJFDANAYRADPYY8327-74-50X98: 30:381.2.840.256766.1.72.3.15|1.2.84 0.773385.1.13.104.2.7.2.727879_19852 19659 Adela Arroyo RN [facility] 2023-01-29 16:37:26 iruVqBEXoGcAV1IAQNw2tPiU41de/AqWtSk/ aXvabHjKuuRBcGhbLS5HpXJr8pED7038-71- 25T16:37:26 Pt to ED CO body aches, fatigue, dizziness x 1 week. States he has been in and out of the hospital the past month for "intestine problems."Hx of gastroparesis 47025-2Sajuidwdx department Triage vllbCO8276-59-05X53:43:[facility] Triage noteTXT1.2.840.684905.1.13.104.2.7.2 .365205|[id number] for patient imnk50690-5Iderbtfer department NoteLNNARRATIVEFormatted C-CDA narrative [id number] R Goodrich RN[id number] NZIUYTEWTHEVMDQZFDDRNS1812-99-61B86: 43:211.2.840.309666.1.72.3.15|1.2.84 0.214640.1.13.104.2.7.2.727879_19852 63020 Elise Cuevas RN [facility] 2022-10-16 20:34:26 g/MxV+dLWVjQrOhhcQxFhx3qLqyzTWRk2ea8 4BK2d1mR9mwShVfB+BNoXGhJPxf78742-99- 11T20:34:26 [facility]ed to call [facility] from [facility], per registration pt left facility 06070-1Nakpntoio department ApvmYA5102-16-47U95:34:40[facility] department NoteTXT1.2.840.687894.1.13.104.2.7.2 .829649|[id number] for patient nwvs42323-0HzebJD035907975Rdyd E Linkes RN[id number] NRIDGBLCISBPQKLGFVREXJ6187-70-77O18: 34:401.2.840.052995.1.72.3.15|1.2.84 0.710900.1.13.104.2.7.2.727879_18966 66426 aMrgo Bustamante RN [facility]
[2023-04-18 19:44] LABS: Absolute Basophils 0.1 K/uL (0-0.5); Absolute Eosinophils 0.1 K/uL (0-0.5); Absolute Lymphocytes (CBC) 2.7 K/uL (0.7-4.9); Absolute Monocytes 0.6 K/uL (0.1-1.3); Absolute Neutrophil 6.9 K/uL (1.8-8.0); Basophils % 1.2 % (0-1.3); Hematocrit 44.4 % (39.6-49.0); Hemoglobin 15.2 g/dL (13.6-17.9); Lymphocytes % 25.6 % (15.3-44.8); MCH 29.2 pg (27.0-35.0); MCHC 34.3 g/dL (32.0-36.0); MCV 85.1 fL (80-100); MPV 9.1 fL (7.6-11.3); Monocytes % 5.8 % (3.3-12.3); Neutrophils % 66.4 % (41.7-73.7); Nucleated RBC Absolute Count 0.1 (0-0); Nucleated Red Blood Cells % 0.7 % (0-0); Platelets 256 thou/uL (152-406); RBC Red Blood Cell Count 5.22 M/uL (4.33-5.43); Red Cell Distribution Width 14.4 % (12.1-15.2)
[2023-04-18 20:06] LABS: Albumin 4.2 g/dL (3.4-5.0); Anion Gap 10.5 mEq/L (5.0-15.0); Bilirubin Total 0.4 mg/dL (0.2-1.0); Globulin 4.3 g/dL (2.3-3.5); Potassium 3.5 mEq/L (3.5-5.1); Protein, Total 8.5 g/dL (6.4-8.2)
--- NOTE | 2023-04-18 20:16 | RAD REPORT ---
EXAM DESCRIPTION: CT - Stone Protocol - 04/18/2023 7:36 pm CLINICAL HISTORY: FLANK PAIN COMPARISON: Abdomen Pelvis W Contrast dated 12/08/2022; Abdomen Pelvis W Contrast dated 11/03/2022 TECHNIQUE: Thin cut axial CT imaging of the abdomen and pelvis was performed without IV contrast. Mu ltiplanar reformats were generated and reviewed. All CT scans are performed using dose optimization technique as appropriate and may include automated exposure control or mA/KV adjustment according to patient size. FINDINGS: No suspicious findings in the lung bases. The liver, spleen, adrenal glands, and pancreas show no suspicious findings. Gallbladder and biliary tree are also without suspicious finding. Symmetric renal contour, without suspicious parenchymal findings within limits of noncontrast techniq ue. No evidence of radiopaque calculi or hydroureteronephrosis. No dilated bowel loops or bowel wall thickening. No free air, free fluid or inflammatory stranding. N o hernia, mass or bulky lymphadenopathy. The urinary bladder is without significant finding. No suspicious bony findings. IMPRESSION: No acute intra-abdominal process.
--- NOTE | 2023-04-18 21:05 | EDPHYS ---
Physician Documentation [facility] Name: Vish Valdivia Jr Age: 33 yrs Sex: Male : 1990 Arrival Date: 04/18/2023 Time: 18:34 Bed DX3 Private MD: ED Physician Frandy Canela HPI: 04/17 19:00 This 33 yrs old Male presents to ER via Ambulatory with complaints of Low Back cp Pain. 19:00 The patient presents with pain that is acute. The symptoms are located in the low back. cp 19:00 Onset: The symptoms/episode began/occurred 1 month(s) ago. cp 19:00 The pain does not radiate. The problem was sustained when bending over. Associated cp signs and symptoms: Pertinent positives: fatigue, leg pain, Pertinent negatives: abdominal pain, constipation, dysuria, fever, incontinence, numbness, tingling, urinary retention. Historical: - Allergies: 18:44 No Known Allergies; ll1 - PMHx: 18:44 Anxiety; Back pain; Cholelithiasis; Hypercholesterolemia; Hypertension; ll1 - PSHx: 18:44 None; ll1 - Immunization history:: Adult Immunizations up to date. - Social history:: Smoking status: Patient denies any tobacco usage or history of. ROS: 19:05 Constitutional: Negative for body aches, chills, fever, poor PO intake, cp 19:05 Eyes: Negative for injury, pain, redness, and discharge, cp 19:05 ENT: Negative for drainage from ear(s), ear pain, sore throat, difficulty swallowing, difficulty handling secretions, 19:05 Cardiovascular: Negative for chest pain, edema, palpitations, 19:05 Respiratory: Negative for cough, shortness of breath, wheezing, 19:05 Abdomen/GI: Negative for abdominal pain, nausea, vomiting, and diarrhea, anorexia, bowel incontinence, 19:05 Back: Positive for pain at rest, pain with movement, of the low back area, Negative for decreased range of motion, 19:05 : Negative for urinary symptoms, difficulty urinating, bladder incontinence, testicular pain 19:05 All other systems are negative, Exam: 19:10 Constitutional: The patient appears in no acute distress, alert, awake, non-toxic, well cp developed, well nourished, obese, uncomfortable, 19:10 Head/Face: Normocephalic, atraumatic. cp 19:10 Eyes: Periorbital structures: appear normal, Conjunctiva: normal, no exudate, no injection, Sclera: no appreciated abnormality, Lids and lashes: appear normal, bilaterally, 19:10 ENT: External ear(s): are unremarkable, Nose: is normal, Mouth: Lips: moist, Oral mucosa: pink and intact, moist, Posterior pharynx: Airway: no evidence of obstruction, patent, 19:10 Neck: ROM/movement: is normal, is supple, without pain, no range of motions limitations, 19:10 Chest/axilla: Inspection: normal, 19:10 Cardiovascular: Rate: normal, Rhythm: regular, Edema: is not appreciated, JVD: is not appreciated, 19:10 Respiratory: the patient does not display signs of respiratory distress, Respirations: normal, no use of accessory muscles, no retractions, labored breathing, is not present, Breath sounds: are clear throughout, no decreased breath sounds, no stridor, no wheezing, 19:10 Abdomen/GI: Inspection: obese Palpation: abdomen is soft and non-tender, in all quadrants, 19:10 Back: pain, that is moderate, of the low back area, ROM is painful, with all movement, 19:10 Skin: no rash present. 19:10 Neuro: Orientation: to person, place \T\ time. Mentation: is normal, Motor: moves all fours, strength is normal, Gait: is steady, at a normal pace, without difficulty, Vital Signs: 18:42 BP 156 / 84; Pulse 92; Resp 18; Temp 98.6; Pulse Ox 100% ; Weight 122.47 kg; Height 5 ll1 ft. 9 in. ; Pain 9/10; 18:42 Body Mass Index 39.87 (122.47 kg, 175.26 cm) ll1 18:42 Pain Scale: Adult ll1 MDM: 18:38 Patient medically screened. cp 19:00 Differential diagnosis: strain, fracture, sciatica, Herniated disc UTI, sciatica, cauda cp equina, spinal stenosis. 21:05 Data reviewed: vital signs, nurses notes, lab test result(s), radiologic studies, CT cp scan. 21:05 I considered the following discharge prescriptions or medication management in the emergency department Medications were administered in the Emergency Department. See MAR. Care significantly affected by the following chronic conditions: Hypertension. Counseling: I had a detailed discussion with the patient and/or guardian regarding the historical points, exam findings, and any diagnostic results supporting the discharge/admit diagnosis, lab results, radiology results, the need for outpatient follow up, a family practitioner, to return to the emergency department if symptoms worsen or persist or if there are any questions or concerns that arise at home. Response to treatment: the patient's symptoms have mildly improved after treatment, and as a result, I will discharge patient. 04/17 18:52 Order name: CBC with Diff; Complete Time: 20:32 cp 04/17 18:52 Order name: CMP; Complete Time: 20:32 cp 04/17 18:52 Order name: Lipase; Complete Time: 20:32 cp 04/17 18:52 Order name: CT Stone Protocol; Complete Time: 20:32 cp 04/17 18:52 Order name: IV Saline Lock; Complete Time: 19:34 cp 04/17 18:52 Order name: Labs collected and sent; Complete Time: 19:34 cp Administered Medications: 21:06 Not Given (Physician Discretion): ns 0.9% 1000 ml IV at 1 bolus Per protocol; 1000 mL jb4 bolus 21:13 Drug: TORadol - Ketorolac IVP 15 mg IVP once Route: IVP; Site: right antecubital; jb4 21:18 Follow up: Response: Medication administered at discharge. jb4 21:13 Not Given (Patient Refused): lidodermpatch 5 % (700 mg/patch) 1 patches Topical once; jb4 leave on for 12 hours; cover most painful area; may cut into smaller pieces 21:13 Drug: Decadron - Dexamethasone IVP 10 mg IVP once Route: IVP; Site: right antecubital; jb4 21:18 Follow up: Response: Medication administered at discharge. jb4 Disposition Summary: 04/18/23 21:05 Discharge Ordered Notes: Location: Home cp Problem: new cp Symptoms: have improved cp Condition: Stable cp Diagnosis - Low back pain cp Followup: cp - With: Private Physician - When: 2 - 3 days - Reason: Recheck today's complaints Discharge Instructions: - Discharge Summary Sheet cp - Acute Back Pain, Adult cp - Heat Therapy cp - Back Exercises cp Forms: - Medication Reconciliation Form cp - Thank You Letter cp - Antibiotic Education cp - Prescription Opioid Use cp - Patient Portal Instructions cp - Leadership Thank You Letter cp Prescriptions: - Diclofenac Sodium 75 mg Oral Tablet Sustained Release - take 1 tablet ORAL route 2 times per day; 30 tablet; Refills: 0, Product cp Selection Permitted - Medrol (Liborio) 4 mg Oral Tablets, Dose Pack - take 1 tablet ORAL route as directed - follow package instructions; 1 packet; cp Refills: 0, Product Selection Permitted - orphenadrine citrate 100 mg Oral Tablet Sustained Release - take 1 tablet ORAL route 2 times per day As needed; 20 tablet; Refills: 0, cp Product Selection Permitted Signatures: Dispatcher [employer] EDMS Ilya Cao PA PA cp Yehuda Malik RN RN jb4 Solan Cai RN RN ll1 Corrections: (The following items were deleted from the chart) 04/18 20:20 04/17 19:00 Associated signs and symptoms: Pertinent negatives: abdominal pain, cp constipation, dysuria, fever, incontinence, numbness, tingling, urinary retention, cp
--- NOTE | 2023-04-18 21:05 | ER ---
Nurse's Notes [facility] Name: Vish Valdivia Jr Age: 33 yrs Sex: Male : 1990 Arrival Date: 04/18/2023 Time: 18:34 Bed DX3 Private MD: Diagnosis: Low back pain Presentation: 04/17 18:42 Chief complaint: Patient states: Low back pain for 1 month. No urinary symptoms ll1 reported. Dizziness since Sunday. + sweaty, fatigue, legs achy. Coronavirus screen: Client denies travel out of the [place] in the last 14 days. At this time, the client does not indicate any symptoms associated with coronavirus-19. Ebola Screen: Patient denies travel to an Ebola-affected area in the 21 days before illness onset. Initial Sepsis Screen: Does the patient meet any 2 criteria? No. Patient's initial sepsis screen is negative. Does the patient have a suspected source of infection? No. Patient's initial sepsis screen is negative. Risk Assessment: Do you want to hurt yourself or someone else? Patient reports no desire to harm self or others. Onset of symptoms was March 20, 2023. 18:42 Method Of Arrival: Ambulatory ll1 18:42 Acuity: HIPOLITO 3 ll1 Triage Assessment: 18:46 General: Appears uncomfortable, Behavior is calm, cooperative, appropriate for age. iw General: Reports fatigue for. Pain: Complains of pain in back Pain currently is 9 out of 10 on a pain scale. Quality of pain is described as aching. Neuro: Reports dizziness. Musculoskeletal: Reports pain in low back. Historical: - Allergies: 18:44 No Known Allergies; ll1 - PMHx: 18:44 Anxiety; Back pain; Cholelithiasis; Hypercholesterolemia; Hypertension; ll1 - PSHx: 18:44 None; ll1 - Immunization history:: Adult Immunizations up to date. - Social history:: Smoking status: Patient denies any tobacco usage or history of. Screenin:14 [facility] ED Fall Risk Assessment (Adult) History of falling in the last 3 months, jb4 including since admission No falls in past 3 months (0 pts) Confusion or Disorientation No (0 pts) Intoxicated or Sedated No (0 pts) Impaired Gait No (0 pts) Mobility Assist Device Used No (0 pt) Altered Elimination No (0 pt) Score/Fall Risk Level 0 - 2 = Low Risk Oriented to surroundings, Maintained a safe environment. Abuse screen: Denies threats or abuse. Nutritional screening: No deficits noted. Tuberculosis screening: No symptoms or risk factors identified. Assessment: 21:14 General: Appears in no apparent distress. uncomfortable, Behavior is calm, cooperative, jb4 appropriate for age. Pain: Complains of pain in low back area Pain does not radiate. Pain currently is 8 out of 10 on a pain scale. Neuro: Level of Consciousness is awake, alert, obeys commands, Oriented to person, place, time, situation. Cardiovascular: Patient's skin is warm and dry. Respiratory: Airway is patent Respiratory effort is even, unlabored, Respiratory pattern is regular, symmetrical. GI: No signs and/or symptoms were reported involving the gastrointestinal system. : No signs and/or symptoms were reported regarding the genitourinary system. EENT: No signs and/or symptoms were reported regarding the EENT system. Derm: Skin is intact, Skin is pink, warm \T\ dry. Musculoskeletal: Circulation, motion, and sensation intact. Range of motion: intact in all extremities. Vital Signs: 18:42 BP 156 / 84; Pulse 92; Resp 18; Temp 98.6; Pulse Ox 100% ; Weight 122.47 kg; Height 5 ll1 ft. 9 in. ; Pain 9/10; 18:42 Body Mass Index 39.87 (122.47 kg, 175.26 cm) ll1 18:42 Pain Scale: Adult ll1 ED Course: 18:36 Patient arrived in ED. rg4 18:38 Ilya Cao PA is PHCP. cp 18:38 Frandy Canela MD is Attending Physician. cp 18:44 Triage completed. ll1 18:45 Arm band placed on. ll1 19:34 CBC with Diff Sent. bc6 19:34 CMP Sent. bc6 19:34 Lipase Sent. bc6 19:34 Inserted saline lock: 22 gauge in right antecubital area, using aseptic technique. bc6 Blood collected. 19:38 CT Stone Protocol In Process Unspecified. EDMS 21:14 Patient has correct armband on for positive identification. Provided Education on: jb4 Educated on medication being given.. 21:14 No provider procedures requiring assistance completed. IV discontinued, intact, jb4 bleeding controlled, No redness/swelling at site. Pressure dressing applied. Administered Medications: 21:06 Not Given (Physician Discretion): ns 0.9% 1000 ml IV at 1 bolus Per protocol; 1000 mL jb4 bolus 21:13 Drug: TORadol - Ketorolac IVP 15 mg IVP once Route: IVP; Site: right antecubital; jb4 21:18 Follow up: Response: Medication administered at discharge. jb4 21:13 Not Given (Patient Refused): lidodermpatch 5 % (700 mg/patch) 1 patches Topical once; jb4 leave on for 12 hours; cover most painful area; may cut into smaller pieces 21:13 Drug: Decadron - Dexamethasone IVP 10 mg IVP once Route: IVP; Site: right antecubital; jb4 21:18 Follow up: Response: Medication administered at discharge. jb4 Medication: 21:14 VIS not applicable for this client. jb4 Outcome: 21:05 Discharge ordered by . victoria 21:14 Discharged to home ambulatory, with family, jb4 21:14 Condition: stable 21:14 Discharge instructions given to patient, Instructed on discharge instructions, follow up and referral plans. no drinking with medication, no driving heavy equipment, medication usage, Demonstrated understanding of instructions, follow-up care, medications, Prescriptions given X 3, 21:20 Patient left the ED. jb4 Signatures: Dispatcher [employer] EDEsme Doe, RN Ilya Gregg PA PA cp Garcia, Rubi rg4 Yehuda Malik RN RN jb4 Sloan Cai RN RN ll1 Mary Quevedo [facility]
[2023-04-18 21:47] VITALS: BP 156/84; TEMP 98.6; O2SAT 100
== END ==
LOC: ER 18:34
DX: M54.50 Low back pain, unspecified (principal); I10 Essential (primary) hypertension
CPT/HCPCS: 85025; 36415; 83690; 80053; 76377; 74176; J1100